=== PATIENT | female | born 1945 | race Caucasian/White ===

== ENCOUNTER 2018-04-02 06:24 | Day surgery (SDC) | payer OTHER ==
--- NOTE | 2018-03-28 16:02 | RAD REPORT ---
EXAM DESCRIPTION: Jesus Menezes (2 Views)03/28/2018 3:52 pm CLINICAL HISTORY: With COPD/preop COMPARISON: 2010 FINDINGS: Lungs are mildly to moderately hyperaerated. The lungs appear clear of acute infiltrate. The heart is normal size IMPRESSION: No acute abnormalities displayed
[2018-03-28 16:06] LABS: Absolute Monocytes 0.5 K/uL (0.1-1.3); Absolute Neutrophil 2.4 K/uL (1.8-8.0); Basophils % 2.1 % (0-1.3); Eosinophils % 3.4 % (0-4.4); Hematocrit 43.4 % (36.0-45.0); Lymphocytes % 38.5 % (15.3-44.8); MCH 31.9 pg (27.0-35.0); MPV 9.5 fL (7.6-11.3); Monocytes % 10.5 % (3.3-12.3); RBC Red Blood Cell Count 4.67 M/uL (3.86-4.86)
--- NOTE | 2018-03-29 06:51 | EKG ---
Test Date: 2018-03-28 Test Time: 16:27:09 Straight Ruling Machine Operator: ROLLY MEASUREMENT RESULTS: Intervals: Rate: 61 IA: 196 QRSD: 76 QT: 400 QTc: 402 [place]: P: 9 IA: 196 QRS: 15 T: 72 INTERPRETIVE STATEMENTS: Normal sinus rhythm Normal ECG Compared to ECG 02/28/2011 14:14:00 No significant changes Electronically Signed On 03-29-18 06:49:10 CDT by Garcia Hooks
[2018-04-02] MEDS ORDERED: NA CHLORIDE 0.9% 500 ML ONE (06:46)
[2018-04-02] MEDS ORDERED: LIDOCAINE 1% MPF 5 ML VIAL ONE (06:49)
[2018-04-02] MEDS ORDERED: LIDOCAINE 1% MPF 30 ML VIAL ONE (06:54)
[2018-04-02] MEDS ORDERED: HEPA 1000U/500MLS 2,000 UNIT/1,000 ML BAG IV ONE (06:54)
[2018-04-02 07:04] LABS: Protime INR 0.95
[2018-04-02] MEDS ORDERED: MIDAZOLAM HCL 2 MG/2 ML INJ ONE (07:34)
[2018-04-02] MEDS ORDERED: FENTANYL CITR 100 MCG/2 ML ONE ×2 (07:35→08:20)
--- NOTE | 2018-04-02 15:50 | OP ---
Surgeon: Garcia Hooks MD Academy Education Director: Lachelle Araujo. Ms. Ledesma is a 73-year-old woman. She was admitted to the animal laboratory technician as an outpatient for abdominal angiogram and a carotid angiogram. Indication was PAD and CVD, abnormal arterial Doppler, abnormal c arotid Doppler. Ms. Ledesma had a negative stress test prior to the procedure. Procedure In Detail: She was brought to the animal laboratory technician, prepped and draped in the routine sterile fash ion. Given 4 mg of Versed and 50 of fentanyl for sedation. Right common femoral artery access with a 6-Citizen Of [place] sheath was obtained successfully. StarClose was used to close the case. A JR4-Citizen [place] cat heter was advanced without any complication in the aortic arch. A carotid angiogram was performed on the right side with the Juan Alberto catheter showing normal flow with some moderate plaquing in the righ t ICA and right ECA. I had to change for a 3DRC to cannulate the left common carotid artery. There was a 90% stenosis in the left internal carotid artery. Following that we exchange over the wire to a pigtail catheter and abdominal angiogram was done showing normal renals, moderate atherosclerosis i n the distal aorta. She had 2 common iliac stents that were noted for a 90% stenosis in the ostium o f the right common iliac artery stent. Both SFAs were normal. The renals were normal. There were n o complications. Blood Loss: 5 cc. Postoperative Diagnosis: Severe peripheral arterial disease and cardiovascular disease. The plan is to have her do her left carotid endarterectomy first. She has had a stent attempt in the past and t hat could not be done. Her right common iliac artery will be fixed after her carotid surgery is done . Total Conscious Sedation: 45 minutes. A CD will be given to the patient. VALERIE/[place]O Voice ID: [id number] Report ID: [id number]
== END 2018-04-02 14:35 | disposition home or self-care (01) ==
LOC: CCL 06:24
PROC: B305ZZZ Plain Radiography of Bilateral Common Carotid Arteries (ICD-10-PCS; principal; 2018-04-02)
PROC: B40DYZZ Plain Radiography of Aorta and Bilateral Lower Extremity Arteries using Other Contrast (ICD-10-PCS; 2018-04-02)
DX: I65.23 Occlusion and stenosis of bilateral carotid arteries (principal); I70.201 Unspecified atherosclerosis of native arteries of extremities, right leg; I10 Essential (primary) hypertension; F17.210 Nicotine dependence, cigarettes, uncomplicated; E78.6 Lipoprotein deficiency; J44.9 Chronic obstructive pulmonary disease, unspecified; Z82.49 Family history of ischemic heart disease and other diseases of the circulatory system
CPT/HCPCS: 36222; 36415 ×2; 71046; 75630; 80048; 85025; 85610; 85730; 93005; J2250; J3010 ×2; Z8249

== ENCOUNTER 2020-06-01 07:57 | Day surgery (SDC) | payer OTHER ==
[2020-05-31 12:11] LABS: Absolute Lymphocytes (CBC) 1.2 K/uL (0.7-4.9); Basophils % 0.6 % (0-1.3); Hematocrit 42.5 % (36.0-45.0); Lymphocytes % 26.7 % (15.3-44.8)
[2020-05-31 12:15] LABS: Protime INR 1.03
--- NOTE | 2020-05-31 12:25 | RAD REPORT ---
EXAM DESCRIPTION: Jesus Menezes (2 Views)05/31/2020 12:17 pm CLINICAL HISTORY: Preop for angiogram. Hypertension COMPARISON: 2018 FINDINGS: The lungs appear clear of acute infiltrate. The heart is mildly enlarged IMPRESSION: No acute abnormalities displayed
[2020-05-31 12:26] LABS: Potassium 3.9 mmol/L (3.5-5.1)
[~2020-06-01 07:57] MED LIST: HEPA 1000U/500MLS 2,000 UNIT/1,000 ML BAG IV ONE
--- OUTSIDE RECORDS SUMMARY | 2020-06-01 08:05 | XMS REPORT | Clinical Summary ---
:1945 Author Organization [facility] Address [address] [place] [address] Care Team Providers Name Role Phone MD Frank Primary Care Provider Allergies Active Allergy Reactions Severity Noted Date Comments Sulfacetamide Sodium Anaphylaxis, Hives, Swelling High 05/11 Medications Medication Sig Dispensed Refills Start Date End Date Status amlodipine-benazepril Take 1 capsule by 0 Active (LOTREL) 10-20 mg per mouth daily. capsule clopidogrel (PLAVIX) Take 75 mg by 0 Active 75 mg tablet mouth daily. pravastatin Take 10 mg by 0 Acti ve (PRAVACHOL) 10 MG mouth nightly. tablet carvedilol (COREG) Take 12.5 mg by 0 Active 12.5 MG tablet mouth 2 (two) times a day with meals. ALPRAZolam (XANAX) Take 0.25 mg by 0 Active 0.25 MG tablet mouth as needed for anxiety. albuterol (PROVENTIL Inhale 2 puffs 0 Active HFA;VENTOLIN HFA) 90 every 6 (six) mcg/actuation inhaler hours as needed for wheezing. Active Problems Problem Noted Date Carotid stenosis, left 07/04/2018 Stenosis of left carotid artery 05/28/2018 Overview: Added automatically from request for juan fermin [id number] Immunizations Name Administration Dates Next Due FLUCELVAX QUAD PF 07/05/2018 Pneumococcal Conjugate 13-Valent 07/05/2018 Surgical History Surgery Date Site/Laterality Comments CAROTID ARTERY 06/11/2010 - ANGIOPLASTY 06/10/2011 ILIAC ARTERY STENT Bilateral ~[id number] CORONARY STENT PLACEMENT x3 2003 RENAL ARTERY STENT ~2003 CATARACT EXTRACTION W/ INTRAOCULAR LENS IMPLANT, BILATERAL ENDARTERECTOMY, CAROTID 07/04/2018 Neck/Left Procedur e: LEFT CAROTID ENDARTERECTOMY w/ EEG monitoring; Surgeon: Jakub Leon MD; Location: [facility]; Service: Cardiothoracic; Laterality: Left; [id number] LCEA w/ EEG I65.29 [id number] n, Linda 06/18/18 Medical devices from this surgery are in the Implants section. Medical History Medical History Date Comments PAD (peripheral artery disease) (HCC) Carotid stenosis Hypertension Hyperlipidemia Chronic kidney disease solitary function al kidney Anesthesia FIRST ENCOUNTER WITH GENERAL ANESTHESIA/NFHAP Myocardial infarction (HCC) ~2003 Hypercholesteremia On home oxygen therapy PRN CAD (coronary artery disease) S/P stents x3 (2003) Dental bridge present LOWER COPD (chronic obstructive pulmonary 2017 HOSPITALIZED FOR ONE NIGHT. disease) (HCC) Wears glasses Family History Medical History Relation Name Comments Heart disease Mother CABG, Carotid ar afsaneh disease Stroke Mother Relation Name Status Comments Mother Social History Tobacco Use Types Packs/Day Years Used Date Current Every Day Smoker Cigarettes 1 50 Sta rted: 05/28/1968 Smokeless Tobacco: Never Used Alcohol Use Drinks/Week oz/Week Comments No social Alcohol Habits Answer Date Recorded How often do you have a drink containing alcohol? Never 05/28/2018 How many drinks containing alcohol do you have on a typical Not asked day when you are drinking? How often do you have six or more drinks on one occasion? No t asked Sex Assigned at Date Recorded Not on file Last Filed Vital Signs Not on file Plan of Treatment Health Maintenance Due Date Last Done Comments COVID-19 VACCINE (#1) 1963 BREAST CANCER SCREENING 1997 COLONOSCOPY SCREENING 1997 SHINGLES VACCINES (#1) 1997 65+ PNEUMOCOCCAL VACCINE (2 of 2 - PPSV23) 07/05/201907/05 INFLUENZA VACCINE 01/10/2020 07/05/2018 Implants Implanted Type Area Sack Sewer Device Shelf Model / Identifier Expiration Serial / Lot Date Clip Ligtng Weck Hemoclip Plus W/ Tape Ti Sm Strngpnt - [id number] Medical N/A: WECK CLOSURE 03/11/2023 [id number] / Implanted: Qty: 1 on 07/04/2018 by Jakub Montoya MD at [facility] Clips for N/A SYSTEMS / Internal Use Clip Ligtng Weck Hemoclip Plus W/ Tape Ti Med - [id number] Medic al N/A: TELEFLEX 12/13/2022 [id number] / Implanted: Qty: 1 on 07/04/2018 by Jakub Montoya MD at [facility] Clips for N/A MEDICAL / Internal Use Kit Shunt Crtd Artery Rdopq Line 6in Strl [place] - [id number] Guerrero rgical N/A: COVIDIEN KENDALL 12/06/2021 [id number] / Implanted: 07/04/2018 at [facility] (Quantity not on file) Imp lants; N/A HEALTHCARE / Expanders; [id number] Extenders; Surgical Wires Patch Vasclr Perph 0.8x8cm Vascu-Guard - [id number] Vascular N/A: CARDENAS 01/09/2023 [id number] / Implanted: 07/04/2018 at [facility] (Quantity not on file) Gra ft N/A BIOSCIENCE / [id number] Results Not on fileafter 06/01/2019 Advance Directives For more information, please contact: [phone] Type Date Recorded Patient Firearms Expert Explanati on Advance Directives, Living Will and Medical Power of Yarder Boss
--- OUTSIDE RECORDS SUMMARY | 2020-06-01 08:05 | XMS REPORT | Continuity of Care Document ---
:1945 Author Organization [facility] t Address [address] [place] [address] Care Team Providers Name Role Phone Frank LOMBARDI Primary Care Physician Saroj Pak MD Attending Clinician Jud Pinto CRNA Attending Clinician Doctor Unassigned, Name Attending Clinician Unavailable Pob, Lab Main Attending Clinician Unavailable Saroj Pak MD Admitting Clinician Problems Condition Condition Condition Status Onset Resolution Last Treating Co mments Source Name Details Category Date Date Treatment Clinician Date Carotid Carotid Disease Active Jerome stenosis, stenosis, 1-24 Meth tamiko left left 00:00: st 00 Stenosis Stenosis Disease Active 2017-06 Overview: [place] of left of left 2-18 Added Methodi carotid carotid 00:00: automatic st artery artery 00 ally from request for surgery [id number] Allergies, Adverse Reactions, Alerts Allergy Allergy Status Severity Reaction(s) Onset Inactive Treating Comm ents Source Name Type Date Date Clinician Sulfacet Propensi Active Anaphylaxis, 2017-06 Jerome amide ty to Hives, 2-18 Methodi Sodium adverse Swelling 00:00: st reaction 00 s to drug Family History Family Member Diagnosis Comments Start Date Stop Date Source Natural mother Heart disease Lozoya Jain Natural mother Stroke Jerome Me thodist Social History Social Habit Start Date Stop Date Quantity Comments Source History of tobacco 1968-05-28 Current every Sandra ston Jain use 00:00:00 day smoker History SDOH Jerome Meth odist Alcohol Std Drinks History SDOH Lozoya Meth odist Alcohol Binge Sex Assigned At [facility] ethodist Cigarettes smoked 2018-07-08 2018-07-08 Darell Sotelo current (pack per 00:00:00 00:00:00 day) - Reported Cigarette 2018-07-08 2018-07-08 Darell Palma ist pack-years 00:00:00 00:00:00 Tobacco use and 2018-07-08 2018-07-08 Never used Lozoya Steve ethodist exposure 00:00:00 00:00:00 Alcohol intake 2018-07-08 2018-07-08 Current Darell Del Cid thodist 00:00:00 00:00:00 non-drinker of alcohol (finding) History SDOH 2018-05-28 2018-05-28 1 Jerome Ashley odist Alcohol Frequency 00:00:00 00:00:00 Alcohol Comment 2018-05-28 2018-05-28 social Jerome Steve ethodist 00:00:00 00:00:00 Smoking Status Start Date Stop Date Source Current every day smoker 2018-07-08 00:00:00 Sandra Palmaist Medications Ordered Filled Start Stop Current Ordering Indication Dosage Frequency Signature Comments Components Source Medication Medication Date Date Medication? Clinician (SIG) Name Name amlodipine- Yes 1{capsu QD Take 1 [place] benazepril 1-25 le} capsule by Met villagran (LOTREL) 13:54: mouth st 10-20 mg 32 daily. per capsule clopidogrel Yes 75mg QD Take 75 mg Lozoya (PLAVIX) 75 1-25 by mouth Meth tamiko mg tablet 13:54: daily. st 32 pravastatin Yes 10mg QD Take 10 mg Lozoya (PRAVACHOL) 1-25 by mouth Meth tamiko 10 MG 13:54: nightly. st tablet 32 carvedilol Yes 12.5mg Q.5D Take 12.5 Lozoya (COREG) 1-25 mg by Methodi 12.5 MG 13:54: mouth 2 st tablet 32 (two) times a day with meals. ALPRAZolam Yes .25mg Take 0.25 [place] (XANAX) 1-25 mg by Methodi 0.25 MG 13:54: mouth as st tablet 32 needed for anxiety. albuterol Yes 2{puff} Q6H Inhale 2 [place] (PROVENTIL 1-25 puffs Methodi HFA;VENTOLI 13:54: every 6 st N HFA) 90 32 (six) mcg/actuati hours as on inhaler needed for wheezing. Immunizations Ordered Immunization Filled Immunization Date Status Commen ts Source Name Name Pneumococcal 2018-07-05 Completed Jerome Conjugate 13-Valent 00:00:00 Metho dist FLUCELVAX QUAD PF 2018-07-05 Completed Jerome 00:00:00 Jain Procedures This patient has no known procedures. Plan of Care Planned Activity Planned Date Details Comments Source Future Scheduled 2020-01-10 [facility] 00:00:00 [code = INFLUENZA VACCINE] Future Scheduled 2019-07-05 65+ PNEUMOCOCCAL Jerome Jain Test 00:00:00 VACCINE (2 of 2 - PPSV23) [code = 65+ PNEUMOCOCCAL VACCINE (2 of 2 - PPSV23)] Future Scheduled 1997 BREAST CANCER [facility] thodist Test 00:00:00 SCREENING [code = BREAST CANCER SCREENING] Future Scheduled 1997 [facility] Jain Test 00:00:00 [code = COLONOSCOPY SCREENING] Future Scheduled 1997 SHINGLES VACCINES (#1) [place] Jain Test 00:00:00 [code = SHINGLES VACCINES (#1)] Future Scheduled 1963 COVID-19 [facility]ACCINE (#1) [facility] Jain Test 00:00:00 [code = COVID-19 VACCINE (#1)] Encounters Start End Encounter Admission Attending Care Care Encounter Source Date/Time Date/Time Type Type Clinicians Facility Department ID 2019-07-16 2019-07-16 [facility] [id number] 08:53:00 12:40:00 Encounter Buzz Chambers [id number] [place] [id number] Surgical [id number] [place] 071 2019-07-16 2019-07-16 Anesthesia [facility] [id number] 09:57:00 11:06:00 Malcolm Chambers [id number] [place] [id number] Surgical [id number] [place] 020 2019-07-16 2019-07-16 Orders Doctor BHANU [id number] 00:00:00 00:00:00 Only Unassigned, GHANSHYAM [id number] [place] [facility] [id number] [id number] 2019-07-14 2019-07-14 Casting Room Operator Dayanna Desir MORAUDEL [id number] 10:55:00 11:10:00 Visit Lab Main [place] [id number] [place] [id number] [facility] [id number] [address] 2019-07-09 2019-07-09 Orders Doctor BHANU [id number] 00:00:00 00:00:00 Only Unassigned, GHANSHYAM [id number] [place] [id number] Results This patient has no known results.
[2020-06-01] MEDS ORDERED: NA CHLORIDE 0.9% 500 ML ONE (08:56)
[2020-06-01] MEDS ORDERED: MIDAZOLAM HCL 2 MG/2 ML INJ ONE ×2 (10:25→10:38)
[2020-06-01] MEDS ORDERED: FENTANYL CITR 100 MCG/2 ML ONE (10:25)
[2020-06-01] MEDS ORDERED: LIDOCAINE 1% MPF 30 ML VIAL ONE (10:58)
[2020-06-01] MEDS ORDERED: HEPARIN 5000 UNIT/ML 1 ML VIAL ONE (11:03)
[2020-06-01] MEDS ORDERED: CLOPIDOGREL 75 MG TABLET ONE (11:48)
--- NOTE | 2020-06-01 12:42 | EKG ---
Test Date: 2020-05-31 Test Time: 11:41:22 Cold Storage Worker: ANTWAN MEASUREMENT RESULTS: Intervals: Rate: 66 [place]: QRSD: 80 QT: 378 QTc: 396 [place]: P: [place]: QRS: 74 T: 102 INTERPRETIVE STATEMENTS: Atrial fibrillation Nonspecific ST abnormality, probably digitalis effect Abnormal ECG Compared to ECG 03/28/2018 16:27:09 ST (T wave) deviation now present Sinus rhythm no longer present Electronically Signed On 06-01-20 12:39:46 LEG ASSEMBLER by Garcia Hooks
[2020-06-01] MEDS ORDERED: cloNIDine HCL 0.1 MG TAB PO ONE (15:00)
[2020-06-01 16:13] VITALS: BP 148/45; TEMP 98; O2SAT 96
--- NOTE | 2020-06-06 12:14 | OP ---
Date of Procedure: 06/01/2020 Surgeon: Garcia Hooks MD Well Treatment Offsider: Nima Monroy. She will go home in 2 hours and see me in the office in the next 2 weeks. The patient is on aspirin, Plavix, and statins. Procedure Performed: Abdominal angiogram with primary stent of the right common iliac artery. Indication: Ms. Ledesma is a 75-year-old woman. She is known to have severe iliac stenosis from pre vious angiography with claudication. She has diffuse disease in the SFA. Procedure In Detail: She was brought to the quality control lab technician as an outpatient on 06/01/2020. She was preppe d and draped in the routine sterile fashion. Using a 6-German sheath that was introduced in the [facility] region t common femoral artery successfully after 10 cc of Xylocaine using the Seldinger technique. An moses ography in that area revealed a 90% stenosis of the ostium of the right common iliac. A 6 x 19 Omnil ink stent was placed in the right common iliac artery ostial lesion with 0% residual. The patient to lerated the procedure well and there were no complications. She received 5000 of heparin IV during t he procedure. Blood loss was 5 mL. Total conscious sedation was 45 minutes. Final Diagnosis: Status post successful primary stent of the ostium of the right common iliac artery . The patient will remain in the hospital for 2 hours after bedrest. She had an Angio-Seal to close th e right groin. VALERIE/[place]LAND[place] Voice ID: [id number] Report ID: [id number]
== END 2020-06-01 15:50 | disposition home or self-care (01) ==
LOC: CCL 07:57
DX: I70.211 Atherosclerosis of native arteries of extremities with intermittent claudication, right leg (principal); E78.2 Mixed hyperlipidemia; I10 Essential (primary) hypertension; F17.210 Nicotine dependence, cigarettes, uncomplicated; Z82.49 Family history of ischemic heart disease and other diseases of the circulatory system; I65.21 Occlusion and stenosis of right carotid artery; Z79.82 Long term (current) use of aspirin; Z79.02 Long term (current) use of antithrombotics/antiplatelets
CPT/HCPCS: 93005; 85025; 80048; 36415; 85610; 85347 ×2; 85730; 71046; 36200; 37221; C1893; C1760; C1725; J1644 ×2; J2250 ×2; J3010; J7040

== ENCOUNTER 2022-11-05 12:55 | Inpatient (IN) | payer OTHER ==
--- OUTSIDE RECORDS SUMMARY | 2022-11-05 12:58 | XMS REPORT | Continuity of Care Document ---
:1945 [facility] t Address [address] [facility] [address] [place] [address] Care Team Providers Name Role Phone Brannon Marie MD Primary Care Physician Maricel_A_AH Attending Clinician Unavailable Buzz Pak MD Attending Clinician [phone] Malcolm Pinto CRNA Attending Clinician Doctor Unassigned, [place] Attending Clinician Unavailable Pob, [facility] Main Attending Clinician Unavailable Ken Attending Clinician Unavailable Nadia-Adrianna_A_AH Admitting Clinician Unavailable Buzz Pak MD Admitting Clinician [phone] Ken Admitting Clinician Unavailable Payers Payer Name Policy Type Policy Number Effective Date Expiration Date Alexa yap [facility] - [id number] 2019 [employer] (MEDICARE 00:00:00 REPLACEMENT/ADVANTA GE - HMO) [employer] [id number] 2019 [employer] 00:00:00 (MEDICARE REPLACEMENT HMO) Problems Condition Condition Condition Status Onset Resolution Last Treating Co mments Source Name Details Category Date Date Treatment Clinician Date Carotid Carotid Disease Active Methodi stenosis, stenosis, 1-24 st left left 00:00: Hospita 00 l Stenosis Stenosis Disease Active 2017-06 Overview: thodi of left of left 2-[address] carotid carotid 00:00: g of this Hospi ta artery artery 00 note l might be different from the original. Added automatic ally from request for surgery [id number] No known No known Disease Unive rs active active ity of problems problems [facility] Allergies, Adverse Reactions, Alerts Allergy Allergy Status Severity Reaction(s) Onset Inactive Treating Comm ents Source Name Type Date Date Clinician Sulfa Propensi Active Hives Univers (Sulfona ty to 07-14 ity of mide adverse 00:00: [place] Antibiot reaction 00 Medica l ics) s Branch Sulfacet Propensi Active Swelling 2017-06 Meth tamiko amide ty to 07-29 st Sodium adverse 00:00: Hospita reaction 00 l s to drug Family History Family Member Diagnosis Comments Start Date Stop Date Source Natural mother Heart disease [facility] Natural mother Stroke [facility] Social History Social Habit Start Date Stop Date Quantity Comments Source History of tobacco Cigarette Smoker [facility] Gender identity [facility] Sexual orientation [facility] History [facility] Alcohol Std Drinks Hospit al History [facility] Alcohol Binge Hospital History of Social 2019-01-26 2019-01-[address] function 00:00:00 00:00:00 Hospital Alcohol intake 2018-07-08 2018-07-08 Current [facility] 00:00:00 00:00:00 non-drinker of Hospital alcohol (finding) History [facility] 2018-07-04 2018-07-04 1 [place] Alcohol Frequency 00:00:00 00:00:00 Hospita l Alcohol Comment 2018-05-28 2018-05-28 social [facility] 00:00:00 00:00:00 Hospital Cigarettes smoked 2018-05-28 2018-05-28 [facility] current (pack per 00:00:00 00:00:00 Hospita l day) - Reported Cigarette 2018-05-28 2018-05-28 [facility] pack-years 00:00:00 00:00:00 Hospital Tobacco use and 2018-05-28 2018-05-28 Smokeless [facility] exposure 00:00:00 00:00:00 tobacco non-user Hospital Sex Assigned At [birth year] [facility] 00:00:00 00:00:00 Hospital Smoking Status Start Date Stop Date Source Unknown if ever smoked Universit y [facility] Current every day smoker 2019-07-16 00:00:00 [facility] Medications Ordered Filled Start Stop Current Ordering Indication Dosage Frequency Signature Comments Components Source Medication Medication Date Date Medication? Clinician (SIG) Name Name carvediloL 2020-0 Yes 12.5mg Take 12.5 Univers (COREG) 2-05 mg by ity of 12.5 mg 19:50: mouth 2 [place] tablet 10 (two) Medical times Branch daily with meals. clopidogreL 2020-0 Yes 75mg Take 75 mg Univers (PLAVIX) 75 2-05 by mouth ity of mg tablet 19:50: daily. [address] amLODIPine- 2020-0 Yes 1{capsu Take 1 U nivers benazepriL 2-05 le} capsule by ity of 5-20 mg per 19:50: mouth [place] capsule 10 daily. Medical Branch ALPRAZolam 2020-0 Yes .25mg Take 0.25 U nivers (XANAX) 2-05 mg by ity of 0.25 mg 19:50: mouth at [place] tablet 10 bedtime. Medical Branch traMADol 50 2020-0 Yes 50mg Take 50 mg Univers mg tablet 2-05 by mouth ity of 19:50: every 8 [place] 10 (eight) Medical hours as Branch needed. acetaminoph 2020-0 Yes 1{tbl} Take 1 Un bj en-codeine 2-05 tablet by ity of (TYLENOL-CO 19:50: mouth [place] DEINE #3) 10 every 4 Medical 300-30 mg (four) Branch tablet hours as needed. carvediloL 2020-0 Yes 12.5mg Take 12.5 Univers (COREG) 2-05 mg by ity of 12.5 mg 19:50: mouth 2 [place] tablet 10 (two) Medical times [place] daily with meals. clopidogreL 2020-0 Yes 75mg Take 75 mg Univers (PLAVIX) 75 2-05 by mouth ity of mg tablet 19:50: daily. [address] Branch amLODIPine- 2020-0 Yes 1{capsu Take 1 U nivers benazepriL 2-05 le} capsule by ity of 5-20 mg per 19:50: mouth [place] capsule 10 daily. Medical Branch ALPRAZolam 2020-0 Yes .25mg Take 0.25 U nivers (XANAX) 2-05 mg by ity of 0.25 mg 19:50: mouth at [place] tablet 10 bedtime. Medical Branch traMADol 50 2020-0 Yes 50mg Take 50 mg Univers mg tablet 2-05 by mouth ity of 19:50: every 8 [place] 10 (eight) Medical hours as Branch needed. acetaminoph 2020-0 Yes 1{tbl} Take 1 Un bj en-codeine 2-05 tablet by ity of (TYLENOL-CO 19:50: mouth [place] DEINE #3) 10 every 4 Medical 300-30 mg (four) Branch tablet hours as needed. carvediloL 2020-0 Yes 12.5mg Take 12.5 Univers (COREG) 2-05 mg by ity of 12.5 mg 19:50: mouth 2 [place] tablet 10 (two) Medical times Branch daily with meals. clopidogreL 2020-0 Yes 75mg Take 75 mg Univers (PLAVIX) 75 2-05 by mouth ity of mg tablet 19:50: daily. [place] [address] Medical Branch amLODIPine- 2020-0 Yes 1{capsu Take 1 U nivers benazepriL 2-05 le} capsule by ity of 5-20 mg per 19:50: mouth [place] capsule 10 daily. Medical Branch ALPRAZolam 2020-0 Yes .25mg Take 0.25 U nivers (XANAX) 2-05 mg by ity of 0.25 mg 19:50: mouth at [place] tablet 10 bedtime. Medical Branch traMADol 50 2020-0 Yes 50mg Take 50 mg Univers mg tablet 2-05 by mouth ity of 19:50: every 8 [place] 10 (eight) Medical hours as Branch needed. acetaminoph 2020-0 Yes 1{tbl} Take 1 Un bj en-codeine 2-05 tablet by ity of (TYLENOL-CO 19:50: mouth [place] DEINE #3) 10 every 4 Medical 300-30 mg (four) Branch tablet hours as needed. dexamethaso 2020-0 2020- No ONCE INTRA Univers ne sod phos 2-05 07-21 PROCEDURE, i ty of PF 17:49: 20:24 Starting [place] injection 00 :42 07/16/19 Medi dave at 1149, Branch Until 07/21/19 at 1424, Routine, Intra-op ropivacaine 2020-0 2020- No ONCE INTRA Univers 0.5 % 2-05 07-21 PROCEDURE, ity of (NAROPIN 17:49: 20:24 Starting [place] (PF)) 00 :21 07/16/19 Medical injection at 1149, Branch Until 07/21/19 at 1424, Routine, Intra-op HYDROmorpho 2020-0 Yes .5mg 0.5 mg, Uni vers ne 2-05 Slow IV ity of (DILAUDID) 17:22: Push, [place] injection 00 Q15MIN Medical 0.5 mg PRN, 4 Branch doses, Starting 07/16/19 at 1122, Until Discontinu ed, Routine, Pain (scale 7-10), 0.5mg IV every 15min PRN for severe Pain up to a total of 2mg IV, PACU
Us e approved by (Faculty): ADC PROVIDER FENTanyl PF 2019-0 Yes 25ug 25 mcg, Uni vers (SUBLIMAZE 2-05 Slow IV ity of (PF)) 17:22: Push, [place] injection 00 Q5MIN PRN, Medi dave 25 mcg 4 doses, Branch Starting 07/16/19 at 1122, Until Discontinu ed, Routine, Pain (scale 4-6), PACU ondansetron 2019-0 Yes 4mg 4 mg, Slow Univers (ZOFRAN 2-05 IV Push, ity of (PF)) 17:22: PRN, 1 [place] injection 4 00 dose, Medical mg Starting Branch 07/16/19 at 1122, Until Discontinu ed, Routine, Nausea and Vomiting (N/V), PACU acetaminoph 2019-0 2020- No IV Unive rs en ADULT 2-05 02-05 Infusion, ity o f (OFIRMEV) 16:09: 17:06 Administer [place] injection 00 :48 over 15 Medical Minutes, Branch ONCE INTRA PROCEDURE, Starting 07/16/19 at 1009, Until 07/16/19 at 1106, Routine, Intra-op FENTanyl PF 2020-0 2020- No Intravenou Univers (SUBLIMAZE 2-05 02-05 s, ONCE ity o f (PF)) 16:03: 17:06 INTRA [place] injection 00 :48 PROCEDURE, Medi dave Starting Branch 07/16/19 at 1003, Until 07/16/19 at 1106, Routine, Intra-op propofol IV 2020-0 2020- No Intravenou Univers infusion 2-05 02-05 s, ONCE ity of 16:03: 17:06 INTRA [place] 00 :48 PROCEDURE, Medical Starting Branch 07/16/19 at 1003, Until 07/16/19 at 1106, Routine, Intra-op lidocaine 2019-0 2020- No ONCE INTRA U nivers 1% 07-16-05 PROCEDURE, ity of (XYLOCAINE) 16:03: 17:06 Starting [place] 100 mg/10 00 :48 07/16/19 Medi dave mL (1 %) at 1003, Branch injection Until 07/16/19 at 1106, Routine, Intra-op midazolam 2019-0 2020- No IV Push, Uni vers (VERSED) 2-05 ONCE INTRA ity of injection 15:54: 17:06 PROCEDURE, [place] 00 :48 Starting Medical 07/16/19 Branch at 0954, Until 07/16/19 at 1106, Routine, Intra-op lactated 2020-0 2020- No IV Univers ringers IV 2-05 Infusion, ity of infusion 15:11: 17:06 CONTINUOUS [place] 00 :48 PRN, Medical Starting Branch 07/16/19 at 0911, Until 07/16/19 at 1106, Routine, Intra-op lactated 2020-0 2020- No 1000mL at 20 Unive rs ringers IV 2- 02-05 mL/hr, ity of infusion 15:00: 15:11 1,000 mL, Shekhar as 1,000 mL 00 :00 IV Medical Infusion, Branch ONCE, 1 dose, 07/16/19 at 0900, Routine, DSU Pre-op ALPRAZolam 2020-0 Yes .25mg Take 0.25 U nivers (XANAX) 2-03 mg by ity of 0.25 mg 15:17: mouth at [place] tablet 23 bedtime. Medical Branch traMADol 50 2020-0 Yes 50mg Take 50 mg Univers mg tablet 2-03 by mouth ity of 15:17: every 8 [place] 23 (eight) Medical hours as Branch needed. acetaminoph 2020-0 Yes 1{tbl} Take 1 Un bj en-codeine 2-03 tablet by ity of (TYLENOL-CO 15:17: mouth [place] DEINE #3) 23 every 4 Medical 300-30 mg (four) Branch tablet hours as needed. carvediloL 2020-0 Yes 12.5mg Take 12.5 Univers (COREG) 2-03 mg by ity of 12.5 mg 15:17: mouth 2 [place] tablet 22 (two) Medical times Branch daily with meals. clopidogreL 2020-0 Yes 75mg Take 75 mg Univers (PLAVIX) 75 2-03 by mouth ity of mg tablet 15:17: daily. [place] 22 Medical Branch amLODIPine- 2019-0 Yes 1{capsu Take 1 U nivers benazepriL 2-03 le} capsule by ity of 5-20 mg per 15:17: mouth [place] capsule 22 daily. Medical Branch amlodipine- 0 Yes 1{capsu QD Take 1 M ethodi benazepril 1-25 le} capsule by st (LOTREL) 13:54: mouth Hospita 10-20 mg 32 daily. l per capsule clopidogrel 2018-0 Yes 75mg QD Take 75 mg Methodi (PLAVIX) 75 1-[address] mg tablet 13:54: daily. Hospit a 32 l pravastatin 0 Yes 10mg QD Take 10 mg Methodi (PRAVACHOL) 1-[address] 10 MG 13:54: nightly. Hospita tablet 32 l carvedilol 2018-0 Yes 12.5mg Q.5D Take 12.5 Methodi (COREG) 1-[address] 12.5 MG 13:54: mouth 2 Hospita tablet 32 (two) l times a day with meals. amlodipine- 0 Yes 1{capsu QD Take 1 M ethodi benazepril 1-25 le} capsule by st (LOTREL) 13:54: mouth Hospita 10-20 mg 32 daily. l per capsule clopidogrel 2018-0 Yes 75mg QD Take 75 mg Methodi (PLAVIX) 75 1-[address] mg tablet 13:54: daily. Hospit a 32 l pravastatin 2019-0 Yes 10mg QD Take 10 mg Methodi (PRAVACHOL) 1-[address] 10 MG 13:54: nightly. Hospita tablet 32 l carvedilol 2019-0 Yes 12.5mg Q.5D Take 12.5 Methodi (COREG) 1-[address] 12.5 MG 13:54: mouth 2 Hospita tablet 32 (two) l times a day with meals. ALPRAZolam 2019-0 Yes .25mg Take 0.25 M ethodi (XANAX) 1-[address] 0.25 MG 13:54: mouth as Hospit a tablet 32 needed for l anxiety. albuterol Yes 2{puff} Q6H Inhale 2 M ethodi (PROVENTIL 1-[address] HFA;VENTOLI 13:54: every 6 Hos tanja N HFA) 90 32 (six) l mcg/actuati hours as on inhaler needed for wheezing. ALPRAZolam 2019 Yes .25mg Take 0.25 M ethodi (XANAX) 1-[address] 0.25 MG 13:54: mouth as Hospit a tablet 32 needed for l anxiety. albuterol Yes 2{puff} Q6H Inhale 2 M ethodi (PROVENTIL 1-[address] HFA;VENTOLI 13:54: every 6 Hos tanja N HFA) 90 32 (six) l mcg/actuati hours as on inhaler needed for wheezing. No known No Univers medications ity [facility] Immunizations Ordered Immunization Filled Immunization Date Status Commen ts Source Name Name Pneumococcal 2018-07-05 Completed [facility] Conjugate 13-[facility]ent 00:00:00 Hospi josh FLUCELVAX QUAD PF 2018-07-[address] 00:00:00 Hospital Pneumococcal 2018-07-05 Completed [place] Conjugate 13-Valent 00:00:00 Hospi josh FLUCELVAX QUAD PF 2018-07-[address] 00:00:00 Hospital Vital Signs Vital Name Observation Time Observation Value Comments Source Systolic blood 2019-07-16 18:07:00 143 mm[Hg] Univer sity of pressure [facility] Diastolic blood 2019-07-16 18:07:00 71 mm[Hg] [facility] Heart rate 2019-07-16 18:07:00 81 /min [facility] Body temperature 2019-07-16 18:07:00 36.83 [facility] Respiratory rate 2019-07-16 18:07:00 18 /min [facility] Oxygen saturation in 2019-07-16 18:07:00 95 /min [facility] Arterial blood by [facility] Pulse oximetry Branch Body height 2019-07-14 15:00:00 165.1 cm Universi ty [facility] [place] Body weight 2019-07-14 15:00:00 74.844 kg Universi ty [facility] BMI 2019-07-14 15:00:00 27.46 kg/m2 Universi ty [facility] Systolic blood 2019-07-16 18:07:00 143 mm[Hg] Univer sity of pressure [facility] Diastolic blood 2019-07-16 18:07:00 71 mm[Hg] Unive rsity of [facility] Heart rate 2019-07-16 18:07:00 81 /min Universi ty [facility] Body temperature 2019-07-16 18:07:00 36.83 Marni [facility] Respiratory rate 2019-07-16 18:07:00 18 /min Univ [facility] Oxygen saturation in 2019-07-16 18:07:00 95 /min [facility] Arterial blood by [facility] Pulse oximetry Branch Body height 2019-07-14 15:00:00 165.1 cm Universi ty [facility] Body weight 2019-07-14 15:00:00 74.844 kg Universi ty [facility] BMI 2019-07-14 15:00:00 27.46 [facility] Procedure Date / Time Performing Clinician Source Performed NERVE BLOCK 2019-07-21 20:25:20 Demetrius Yu [facility] FL TIME OR 2019-07-16 16:53:29 Buzz Pak [facility] (NON-REPORTABLE) [facility] INTUBATION 2019-07-16 16:07:50 Demetrius Yu [facility] DAY SURGERY - ADC 2019-07-16 06:01:00 Doctor Unassigned, [facility] Isabella [facility] INSURANCE CORRESPONDENCE 2019-07-09 06:01:00 Doctor [place], [facility] Isabella [facility] Plan of Care Planned Activity Planned Date Details Comments Source Future Scheduled 2022-09-14 COVID-19 VACCINE (#1) [facility] Test 16:45:37 [code = COVID-19 VACCINE (#1)] Future Scheduled 2022-09-14 BREAST CANCER [facility] Test 16:45:37 SCREENING [code = BREAST CANCER SCREENING] Future Scheduled 2022-09-14 COLONOSCOPY SCREENING [facility] Test 16:45:37 [code = COLONOSCOPY SCREENING] Future Scheduled 2022-09-14 SHINGLES VACCINES (1 Met [facility] Test 16:45:37 of 2) [code = SHINGLES VACCINES (1 of 2)] Future Scheduled 2022-09-14 65+ PNEUMOCOCCAL Methodi [facility] Test 16:45:37 VACCINE (2 - PPSV23 if available, else PCV20) [code = 65+ PNEUMOCOCCAL VACCINE (2 - PPSV23 if available, else PCV20)] Future Scheduled 2022-09-14 INFLUENZA VACCINE Method [email or web address] Test 16:45:37 [code = INFLUENZA VACCINE] Future Scheduled 2022-09-14 COVID-19 VACCINE (#1) [facility] Test 16:45:37 [code = COVID-19 VACCINE (#1)] Future Scheduled 2022-09-14 BREAST CANCER [facility] Test 16:45:37 SCREENING [code = BREAST CANCER SCREENING] Future Scheduled 2022-09-14 COLONOSCOPY SCREENING [facility] Test 16:45:37 [code = COLONOSCOPY SCREENING] Future Scheduled 2022-09-14 SHINGLES VACCINES (1 Met [facility] Test 16:45:37 of 2) [code = SHINGLES VACCINES (1 of 2)] Future Scheduled 2022-09-14 65+ PNEUMOCOCCAL Methodi [facility] Test 16:45:37 VACCINE (2 - PPSV23 if available, else PCV20) [code = 65+ PNEUMOCOCCAL VACCINE (2 - PPSV23 if available, else PCV20)] Future Scheduled 2022-09-14 INFLUENZA VACCINE Method [email or web address] Test 16:45:37 [code = INFLUENZA VACCINE] Encounters Start End Encounter Admission Attending Care Care Encounter Source Date/Time Date/Time Type Type Clinicians Facility Department ID 2019-07-30 2019-07-30 Outpatient [facility] [address] [facility] 07:12:00 07:12:00 _A_AH [id number] Family Practic e 2019-07-30 2019-07-30 Outpatient [facility] [address] [facility] 07:12:00 07:12:00 _A_AH [id number] Family Practic e 2019-07-16 2019-07-16 [facility] [id number] 08:53:00 12:40:00 Encounter Buzz [place] [id number] [place] [id number] Surgical [id number] [place] 071 2019-07-16 2019-07-16 [facility] [id number] [facility] 08:53:00 12:40:00 Encounter Buzz [place] [id number] ity of [place] [id number] [place] [id number] [facility] 071 Branch 2019-07-16 2019-07-[address] [facility] [id number] 09:57:00 11:06:00 Malcolm Jud [place] [id number] [place] [id number] Surgical [id number] [place] 020 2019-07-16 2019-07-[address] [facility] [id number] Univers 09:57:00 11:06:00 Malcolm Jud [place] [id number] i ty of [place] [id number] [place] [id number] [facility] 020 Branch 2019-07-16 2019-07-16 Orders Doctor DRUMMOND [id number] 00:00:00 00:00:00 Only Unassigned, GHANSHYAM [id number] [place] [facility]OSPITAL [id number] [id number] 009 2019-07-16 2019-07-16 Orders Doctor DRUMMOND [id number] Univers 00:00:00 00:00:00 Only Unassigned, GHANSHYAM [id number] ity of [place] HOSPITAL [id number] Shekhar as [phone] [address] 2019-07-14 2019-07-14 Elderly Companion Dayanna Desir [facility] [id number] 10:55:00 11:10:00 Visit Lab Main [place] [id number] [place] [id number] Professio [phone] [address] 2019-07-14 2019-07-14 Elderly Companion Dayanna Desir Lab Main [facility] 1.2.[id number] [facility] 10:55:00 11:10:00 Visit Buzz Pak 350.1. 13.10 ity of [place] [id number] Héctor s Professio [id number] Pa dical [address] 2019-07-09 2019-07-09 Orders Doctor BHANU [id number] 00:00:00 00:00:00 Only Unassigned, GHANSHYAM [id number] [place] [facility] [id number] [id number] [facility] 2019-07-09 2019-07-09 Orders Doctor BHANU [id number] Univers 00:00:00 00:00:00 Only Unassigned, GHANSHYAM [id number] [facility] [id number] Shekhar as [id number] [address] 2019-07-02 2019-07-02 [facility] [id number] [place] 05:10:00 05:10:00 0122 Medical Group Results Test Test Test Results Result Source Description Time Comments Comments Nerve Block 2019-07- Demetrius Yu CRNA ? [place] [id number] ? 07/21/2019 ?2:29 PM Héctor link Medical 20:25:20 Nerve Block Procedure: Br anch Supraclavicular Nerve Block Laterality: LeftSurgical Anesthesia: no Start Time: 07/21/2019 11:47 AMEnd Time: 07/21/2019 11:54 AMPost Op Pain Management: Post op pain management requested by Surgeon pe surgical Pre Anesthesia consult.Resident/EDUCATION TRAINER: Demetrius Yu CRNAPerformed by: resident/CRNAPreanestheti c timeout completed prior to procedure: patient identified,IV checked, site marked, risks and benefits discussed, surgical consent, monitors and equipment checked, pre-op evaluation, timeout performedInformed consent obtained patient wishes to proceed: yesPatient position: supine.Sterile Prep/Drape: YesMonitoring: continuous pulse ox, blood pressure and ECGInjection Technique: single-shotNeedle Type: StimuplexNerve Block Needle Gauge: 20 G.Needle Length: 4.0Number of Attempts: 1Needle Insertion Depth: 1.5Technique: Ultrasound guided, Negative aspiration and Intermittent aspiration during injectionSensory Effect: AdequateEvents: Patient tolerated procedure well, Negative Aspiration, No paresthesia on incremental injection, No symptoms of intraneural or IV injection and Local anesthetic solution visualized around nerve Medications Given: Regional:Bupiv 0.5% 20 mLRopiv 0.5% 20 mLDexamethasone 10mg/ml 0.5 mL Sedation:Midazolam 2 mg Additional Notes:Late Entry made, verified with Seda Alba RN who also assisted with procedure Left Supraclavicular Nerve Block Assessment completed, anesthetic plan and risks discussed. Consent was obtained. Timeout performed at bedside. Right neck prepped with chloraprep; relevant structures visualized under continuous ultrasound. Skin localized with 3ml 1% lidocaine; 20g 4" stimuplex needle advanced under continous ultrasound guidance. Fascial clicks appreciated. Small test injection using 1ml of sterile pfNS confirmed needle position. 20ml 0.5% Naropin and Decadron 5mg mixture injected incrementally with negative repeated aspiration every 5ml. Needle tip visualized throughout procedure, negative parasthesias, heme or CSF noted; pt tolerated well, nerve block onset slow and adequate. ?Aseptic technique maintained throughout. Patient tolerated well. ? __ FL TIME OR 2019-07- These images do not Unive rsity of (NON-REPORTABLE [address] [facility] ) 16:55:26 diagnostic report. Branch Intubation 2019-07- Demetrius Yu CRNA ? [facility] ? 07/16/2019 10:08 [facility] dical 16:07:50 AMIntubationDate/Time: Br anch 07/16/2019 10:04 AMUrgency: elective General Information and Staff Patient location during procedure: ORResident/EDUCATION TRAINER: Yu, Demetrius R, CRNAPerformed: resident/EDUCATION TRAINER Indications and Patient ConditionIndications for airway management: anesthesiaSpontaneous ventilation: presentSedation level: deepPreoxygenated: yesPatient position: sniffingMILS maintained throughoutMask difficulty assessment: 1 - vent by mask Final Airway DetailsFinal airway type: supraglottic airway Successful airway: uniqueSize 4 Number of attempts at approach: 1Ventilation between attempts: BVMNumber of other approaches attempted: 0 Additional CommentsPt assessed, consented and Time Out performed. ?Patient supine, head midline and neutral. Nurse/EDUCATION TRAINER at side of bed assisting. ?Pre-oxygenated, induced and LMA 4 placed atraumatically. ?Placement verified upon auscultation bilaterally with good chest rise. ?Positive ETCO2. LMA secured, soft airway placed, eyes taped for protection. VSS, tolerated well.
--- NOTE | 2022-11-05 13:37 | RAD REPORT ---
EXAM DESCRIPTION: RAD - Chest Single View - 11/05/2022 1:28 pm CLINICAL HISTORY: COPD;Cough;Congestion COMPARISON: Chest Pa And Lat (2 Views) dated 05/31/2020; Chest Pa And Lat (2 Views) dated 03/28/2018 ; CHEST PA AND LAT 2 VIEW dated 02/28/2011; CHEST PA AND LAT 2 VIEW dated 04/07/2010 FINDINGS: Lines: None. Lungs: No evidence of edema or pneumonia. Pleural: No significant pleural effusions or pneumothorax. Cardiac: The heart size is within normal limits. Mediastinum: Within normal limits. Bones: No acute fractures. Other: None IMPRESSION: No acute cardiopulmonary disease.
[2022-11-05 13:58] LABS: Absolute Lymphocytes (CBC) 0.5 K/uL (0.7-4.9); Hematocrit 40.9 % (36.0-45.0); Lymphocytes % 9.7 % (15.3-44.8); MCV 91.4 fL (80-100); MPV 8.9 fL (7.6-11.3); RBC Red Blood Cell Count 4.48 M/uL (3.86-4.86)
[2022-11-05 14:06] LABS: SARS-CoV-2 Antigen Rapid Res Negative (Negative)
[2022-11-05 14:30] LABS: Protime INR 0.97
[2022-11-05 14:43] LABS: Albumin 3.4 g/dL (3.4-5.0); Bilirubin Direct 0.2 mg/dL (0-0.2); Bilirubin Indirect, Calculated 0.4 mg/dL (0.2-0.8); Bilirubin Total 0.6 mg/dL (0.2-1.0); Magnesium 2.5 mg/dL (1.6-2.4); Potassium 4.5 mEq/L (3.5-5.1); Protein, Total 6.7 g/dL (6.4-8.2); Troponin High Sensitivity 17.9 pg/mL (<58.9)
--- NOTE | 2022-11-05 15:34 | EDPHYS ---
Physician Documentation [facility] Name: Trang Ledesma Age: 77 yrs Sex: Female : 1945 Arrival Date: 11/05/2022 Time: 12:55 Bed 14 Private MD: ED Physician Jaziel Looney HPI: 11/05 15:24 This 77 yrs old Female presents to ER via EMS with complaints of Shortness Of dora Breath. 15:24 The patient has shortness of breath at rest, with light activity. Onset: The dora symptoms/episode began/occurred 2 day(s) ago. Duration: The symptoms are continuous, and are steadily getting worse. The patient's shortness of breath is aggravated by coughing, light activity, prone position, supine position, talking, walking. Associated signs and symptoms: Pertinent positives: non-productive cough, dizziness, fever. Severity of symptoms: At their worst the symptoms were moderate in the emergency department the symptoms are unchanged. Historical: - Allergies: 13:08 Sulfa (Sulfonamide Antibiotics); db 13:08 PENICILLINS; db - PMHx: 13:08 Atrial fibrillation; Chronic obstructive lung disease; db - Immunization history:: Client reports receiving the 2nd dose of the Covid vaccine. - Social history:: Smoking status: Patient reports the use of cigarette tobacco products, smokes one-half pack cigarettes per day. ROS: 15:25 Constitutional: Negative for fever, chills, and weight loss, Eyes: Negative for injury, dora pain, redness, and discharge, ENT: Negative for injury, pain, and discharge, Neck: Negative for injury, pain, and swelling, Abdomen/GI: Negative for abdominal pain, nausea, vomiting, diarrhea, and constipation, Back: Negative for injury and pain, : Negative for injury, bleeding, discharge, and swelling, MS/Extremity: Negative for injury and deformity, Skin: Negative for injury, rash, and discoloration, Neuro: Negative for headache, weakness, numbness, tingling, and seizure, Psych: Negative for depression, anxiety, suicide ideation, homicidal ideation, and hallucinations, Allergy/Immunology: Negative for hives, rash, and allergies, Endocrine: Negative for neck swelling, polydipsia, polyuria, polyphagia, and marked weight changes, Hematologic/Lymphatic: Negative for swollen nodes, abnormal bleeding, and unusual bruising. 15:25 Cardiovascular: Positive for orthopnea, palpitations, paroxysmal nocturnal dyspnea. 15:25 Respiratory: Positive for cough, "sounds productive", orthopnea, shortness of breath, at rest. wheezing, inspiratory, expiratory, of the left posterior upper lobe, right posterior upper lobe, left posterior lower lobe, right posterior middle lobe and right posterior lower lobe. 15:25 MS/extremity: Negative for acute changes. Exam: 15:26 Constitutional: This is a well developed, well nourished patient who is awake, alert, dora and in no acute distress. Head/Face: Normocephalic, atraumatic. Eyes: Pupils equal round and reactive to light, extra-ocular motions intact. Lids and lashes normal. Conjunctiva and sclera are non-icteric and not injected. Cornea within normal limits. Periorbital areas with no swelling, redness, or edema. ENT: Nares patent. No nasal discharge, no septal abnormalities noted. Tympanic membranes are normal and external auditory canals are clear. Oropharynx with no redness, swelling, or masses, exudates, or evidence of obstruction, uvula midline. Mucous membranes moist. Neck: Trachea midline, no thyromegaly or masses palpated, and no cervical lymphadenopathy. Supple, full range of motion without nuchal rigidity, or vertebral point tenderness. No Meningismus. Chest/axilla: Normal chest wall appearance and motion. Nontender with no deformity. No lesions are appreciated. Cardiovascular: Regular rate and rhythm with a normal S1 and S2. No gallops, murmurs, or rubs. Normal PMI, no JVD. No pulse deficits. Abdomen/GI: Soft, non-tender, with normal bowel sounds. No distension or tympany. No guarding or rebound. No evidence of tenderness throughout. Back: No spinal tenderness. No costovertebral tenderness. Full range of motion. Female : Normal external genitalia. Skin: Warm, dry with normal turgor. Normal color with no rashes, no lesions, and no evidence of cellulitis. MS/ Extremity: Pulses equal, no cyanosis. Neurovascular intact. Full, normal range of motion. Neuro: Awake and alert, GCS 15, oriented to person, place, time, and situation. Cranial nerves II-XII grossly intact. Motor strength 5/5 in all extremities. Sensory grossly intact. Cerebellar exam normal. Normal gait. Psych: Awake, alert, with orientation to person, place and time. Behavior, mood, and affect are within normal limits. 15:26 ECG was reviewed by the Attending Physician. 15:26 Neuro: Exam negative for acute changes, focal neuro deficits, motor deficits, sensory deficits, cerebellar deficits. Vital Signs: 12:56 BP 151 / 77; Pulse 72; Resp 20; Temp 98.7; Pulse Ox 90% on 4 lpm NC; Weight 74.84 kg; db Height 5 ft. 5 in. ; 14:00 BP 164 / 67; Pulse 79; Resp 18; Pulse Ox 92% on 4 lpm NC; db 15:30 BP 151 / 68; Pulse 77; Resp 20; Pulse Ox 91% on 4 lpm NC; db 16:30 BP 181 / 93; Pulse 82; Resp 20 S; Pulse Ox 100% on BiPAP; db 17:30 BP 154 / 71; Pulse 80; Resp 18; Pulse Ox 100% on BiPAP; db 18:30 BP 162 / 114; Pulse 83; Resp 18; Pulse Ox 100% on BiPAP; db 19:30 BP 169 / 77; Pulse 75; Resp 20; Pulse Ox 100% on BiPAP; jb4 12:56 Body Mass Index 27.46 (74.84 kg, 165.1 cm) db MDM: 13:05 Patient medically screened. doar 15:28 Differential diagnosis: CHF exacerbation, Chronic Obstructive Pulmonary Disease dora obstructed airway, tracheal injury, bronchitis, flu, URI, pneumonia, pulmonary edema, reactive airway disease, Sepsis Unstable Angina. Antibiotic administration: Levaquin given. Differential Diagnosis: Obstructed Airway Bronchitis Influenza Upper Respiratory Infection Sinusitis Pharyngitis Asthma Exacerbation Viral Syndrome Pneumonia. Immunization status: Pneumococcal vaccine: within last 5 years. Influenza vaccine: within last 5 years. Data reviewed: vital signs, nurses notes, EMS record, lab test result(s), EKG, radiologic studies, plain films. Consideration of Admission/Observation Patient was admitted/placed on observation. Escalation of care including admission/observation considered. Independent interpretation of the following test(s) in the Emergency Department EKG: See my EKG interpretation above. Care significantly affected by the following chronic conditions: Hypertension, Chronic Obstructive Pulmonary Disease, Obesity, COPD. Counseling: I had a detailed discussion with the patient and/or guardian regarding: the historical points, exam findings, and any diagnostic results supporting the discharge/admit diagnosis, lab results, radiology results, the need for further work-up and treatment in the hospital. 11/05 13:07 Order name: Basic Metabolic Panel; Complete Time: 15:[address] [facility] 11/05 13:07 Order name: CBC with Diff; Complete Time: 14:[address] [facility] 11/05 13:07 Order name: LFT's; Complete Time: 15:[address] [facility] 11/05 13:07 Order name: Magnesium; Complete Time: 15:[address] [facility] 11/05 13:07 Order name: NT PRO-BNP; Complete Time: 15:[address] [facility] 11/05 13:07 Order name: PT-INR; Complete Time: 14:[address] [facility] 11/05 13:07 Order name: Troponin HS; Complete Time: 15: [facility] 11/05 13:07 Order name: Blood Culture Adult (2) [facility] 11/05 13:07 Order name: Lactate w/ 2H reflex if indic.; Complete Time: 14:[address] [facility] 11/05 13:07 Order name: Flu; Complete Time: 14:[address] [facility] 11/05 13:07 Order name: SARS RAPID; Complete Time: 14:[address] [facility] 11/05 15:20 Order name: ABG [facility] 11/05 17:33 Order name: CBC with Automated Diff [facility] 11/05 17:33 Order name: CBC with Automated Diff [facility] 11/05 17:33 Order name: Comprehensive Metabolic Panel [facility] 11/05 17:33 Order name: Comprehensive Metabolic Panel [facility] 11/05 17:33 Order name: Lipid Profile [facility] 11/05 17:33 Order name: Lipid Profile [facility] 11/05 17:33 Order name: Protime (+INR) [facility] 11/05 17:33 Order name: Protime (+INR) [facility] 11/05 17:33 Order name: PTT, Activated Partial Thromb [facility] 11/05 17:33 Order name: PTT, Activated Partial Thromb [facility] 11/05 17:33 Order name: Troponin High Sensitivity [facility] 11/05 17:33 Order name: Troponin High Sensitivity [facility] 11/05 17:33 Order name: Troponin High Sensitivity [facility] 11/05 13:07 Order name: XRAY Chest (1 view); Complete Time: 14:[address] [facility] 11/05 15:46 Order name: BIPAP [facility] 11/05 13:07 Order name: EKG; Complete Time: 13:[address] [facility] 11/05 15:24 Order name: EKG; Complete Time: 15:[address] [facility] 11/05 17:33 Order name: CONS Physician Consult [facility] 11/05 17:33 Order name: Heart Healthy [facility] 11/05 17:33 Order name: EKG Electrocardiogram [facility] 11/05 17:33 Order name: EKG Electrocardiogram [facility] 11/05 13:07 Order name: Cardiac monitoring; Complete Time: 14:[address] [facility] 11/05 13:07 Order name: EKG - Nurse/Tech; Complete Time: 14:[address] [facility] 11/05 13:07 Order name: IV Saline Lock; Complete Time: 14:[address] [facility] 11/05 13:07 Order name: Labs collected and sent; Complete Time: 14:[address] [facility] 11/05 13:07 Order name: O2 Per Protocol; Complete Time: 14:[address] [facility] 11/05 13:07 Order name: O2 Sat Monitoring; Complete Time: 14:[address] [facility] 11/05 14:15 Order name: Labs - recollect needed: recollect chemistries and blue top; Complete Time: eb 15:11/05 15:24 Order name: EKG - Nurse/Tech; Complete Time: 17:[address] [facility] EC:26 Rate is 77 beats/min. Rhythm is irregularly irregular. T waves are Normal. Clinical dora impression: Atrial Fibrillation. Administered Medications: 15:40 CANCELLED (Duplicate Order): MethylPrednisoLONE IVP 125 mg IVP once dora 16:40 Drug: Famotidine IVP 20 mg Route: IVP; Site: right antecubital; db 18:37 Follow up: Response: No adverse reaction db 16:42 Drug: Decadron - Dexamethasone IVP 10 mg Route: IVP; Site: right antecubital; db 18:37 Follow up: Response: No adverse reaction db 16:47 Drug: levofloxacin IVPB 500 mg Volume: 100 ml; Route: IVPB; Infused Over: 60 mins; db Site: right antecubital; 17:50 Follow up: Response: No adverse reaction; IV Status: Completed infusion; IV Intake: db 100ml 16:48 Drug: Ipratropium Inhalation Aerosol 0.5 mg Route: Inhalation; db 18:37 Follow up: Response: No adverse reaction db 16:50 Drug: Levalbuterol Inhalation 3.75 mg Route: Inhalation; db 17:23 Drug: Levalbuterol Inhalation 1.25 mg Route: Inhalation; db 18:37 Follow up: Response: No adverse reaction db Disposition Summary: 11/05/22 15:33 Hospitalization Ordered Hospitalization Status: Inpatient Admission dora Provider: Christy Costello cha Location: Telemetry/MedSurg (Inpatient) dora Condition: Fair dora Problem: new dora Symptoms: have improved dora Bed/Room Type: Standard dora Room Assignment: 206(11/05/22 18:32) dw Diagnosis - COPD/ Chronic obstructive pulmonary disease with (acute) exacerbation dora - Hypoxemia dora - Dyspnea dora - Tobacco abuse counseling dora - Tobacco use dora - Chronic atrial fibrillation dora - Acute and chronic respiratory failure with hypercapnia dora - Respiratory failure, unspecified, unspecified whether with hypoxia or hypercapnia dora Forms: - Medication Reconciliation Form dora - SBAR form dora Signatures: Dispatcher [employer] Eloise Abbott RN RN dw Jaziel Looney MD MD cha Botello, Elizabeth eb Nieto, Raymond, MD MD rn3 Agueda Oropeza RN RN db Corrections: (The following items were deleted from the chart) 15:40 15:20 MethylPrednisoLONE IVP 125 mg IVP once ordered. dora dora 18:32 15:33 dora dw
--- NOTE | 2022-11-05 15:34 | ER ---
Nurse's Notes [facility] Name: Trang Ledesma Age: 77 yrs Sex: Female : 1945 Arrival Date: 11/05/2022 Time: 12:55 Bed 14 Private MD: Diagnosis: COPD/ Chronic obstructive pulmonary disease with (acute) exacerbation;Hypoxemia;Dyspnea;Tobacco abuse counseling;Tobacco use;Chronic atrial fibrillation;Acute and chronic respiratory failure with hypercapnia;Respiratory failure, unspecified, unspecified whether with hypoxia or hypercapnia Presentation: 11/05 12:56 Chief complaint: EMS states: patient called EMS for SOB. 90% on RA per EMS. upon db arrival on 4L NC patient is 90% O2. patient recently released from [facility] 2 days ago. Patient seen coughing up blood by family. Pt has audible wheezes. Given DuoNeb x 2 and 125 mg IVP solumedrol. HX of Afib. Coronavirus screen: Vaccine status: Patient reports receiving the 2nd dose of the covid vaccine. Client denies travel out of the [place] in the last 14 days. Client presents with at least one sign or symptom that may indicate coronavirus-19. At this time, the client does not indicate any symptoms associated with coronavirus-19. Ebola Screen: Patient negative for fever greater than or equal to 101.5 degrees Fahrenheit, and additional compatible Ebola Virus Disease symptoms Patient denies exposure to infectious person. Patient denies travel to an Ebola-affected area in the 21 days before illness onset. No symptoms or risks identified at this time. Initial Sepsis Screen: Does the patient meet any 2 criteria? No. Patient's initial sepsis screen is negative. Does the patient have a suspected source of infection? No. Patient's initial sepsis screen is negative. Risk Assessment: Do you want to hurt yourself or someone else? Patient reports no desire to harm self or others. Onset of symptoms was November 05, 2022. Care prior to arrival: Medication(s) given: solumedrol 125 mg and Duo Neb x 2. 12:56 Method Of Arrival: EMS: [facility] db 12:56 Acuity: ZUNILDA 2 db Triage Assessment: 13:06 General: Appears in no apparent distress. uncomfortable, patient talking with db granddaughter. Behavior is calm, cooperative. Pain: Complains of pain in chest. Respiratory: Reports shortness of breath at rest cough that is productive, labored breathing Breath sounds are coarse bilaterally. Onset: The symptoms/episode began/occurred today, the patient has moderate shortness of breath. Historical: - Allergies: 13:08 Sulfa (Sulfonamide Antibiotics); db 13:08 PENICILLINS; db - PMHx: 13:08 Atrial fibrillation; Chronic obstructive lung disease; db - Immunization history:: Client reports receiving the 2nd dose of the Covid vaccine. - Social history:: Smoking status: Patient reports the use of cigarette tobacco products, smokes one-half pack cigarettes per day. Screenin:07 [facility] ED Fall Risk Assessment (Adult) History of falling in the last 3 months, db including since admission Yes- single mechanical fall (1 pt) Confusion or Disorientation No (0 pts) Intoxicated or Sedated No (0 pts) Impaired Gait Yes (1 pt) Mobility Assist Device Used Yes (1 pt) Altered Elimination No (0 pt) Score/Fall Risk Level 3 or more points = High Risk Oriented to surroundings, Maintained a safe environment, Educated pt \T\ family on fall prevention, incl call for assistance when getting out of bed. Abuse screen: Denies threats or abuse. Denies injuries from another. Nutritional screening: No deficits noted. Tuberculosis screening: No symptoms or risk factors identified. Assessment: 13:09 Reassessment: See triage for initial assessment. db 14:06 Reassessment: Patient appears in no apparent distress at this time. Patient and/or db family updated on plan of care and expected duration. Pain level reassessed. Patient is alert, oriented x 3, equal unlabored respirations, skin warm/dry/pink. phlebotomy is at bedside. 14:07 Reassessment: Patient appears in no apparent distress at this time. Patient and/or db family updated on plan of care and expected duration. Pain level reassessed. Patient is alert, oriented x 3, equal unlabored respirations, skin warm/dry/pink. Pain: Complains of pain in chest, left ribs. Neuro: Level of Consciousness is awake, alert, obeys commands, Oriented to person, place, time, situation. Cardiovascular: Rhythm is atrial fibrillation. Respiratory: Airway is patent Respiratory effort is even, labored, Respiratory pattern is regular, symmetrical, Breath sounds are coarse bilaterally. 15:13 Reassessment: Patient is alert, oriented x 3, equal unlabored respirations, skin db warm/dry/pink. Dr. Looney at patient bedside. 16:56 Reassessment: Patient appears in no apparent distress at this time. Patient and/or db family updated on plan of care and expected duration. Pain level reassessed. Patient is alert, oriented x 3, equal unlabored respirations, skin warm/dry/pink. breathing treatment going. Daughter at bedside. patient on Bipap. 17:30 Reassessment: Patient appears in no apparent distress at this time. Patient and/or db family updated on plan of care and expected duration. Pain level reassessed. Patient is alert, oriented x 3, equal unlabored respirations, skin warm/dry/pink. family is at bedside. 17:30 Reassessment: Patient appears in no apparent distress at this time. Patient and/or db family updated on plan of care and expected duration. Pain level reassessed. Patient is alert, oriented x 3, equal unlabored respirations, skin warm/dry/pink. General: Appears in no apparent distress. comfortable, Behavior is calm, cooperative. 18:35 Reassessment: Called to give report. [facility] does not have staff and to give report db after shift change. 18:41 Reassessment: Patient appears in no apparent distress at this time. Patient and/or db family updated on plan of care and expected duration. Pain level reassessed. Patient is alert, oriented x 3, equal unlabored respirations, skin warm/dry/pink. General: Appears in no apparent distress. comfortable. 19:15 Reassessment: Patient appears in no apparent distress at this time. Patient and/or jb4 family updated on plan of care and expected duration. Pain level reassessed. Patient is alert, oriented x 3, equal unlabored respirations, skin warm/dry/pink. 19:55 Reassessment: Patient appears in no apparent distress at this time. Patient and/or jb4 family updated on plan of care and expected duration. Pain level reassessed. Patient is alert, oriented x 3, equal unlabored respirations, skin warm/dry/pink. Vital Signs: 12:56 BP 151 / 77; Pulse 72; Resp 20; Temp 98.7; Pulse Ox 90% on 4 lpm NC; Weight 74.84 kg; db Height 5 ft. 5 in. ; 14:00 BP 164 / 67; Pulse 79; Resp 18; Pulse Ox 92% on 4 lpm NC; db 15:30 BP 151 / 68; Pulse 77; Resp 20; Pulse Ox 91% on 4 lpm NC; db 16:30 BP 181 / 93; Pulse 82; Resp 20 S; Pulse Ox 100% on BiPAP; db 17:30 BP 154 / 71; Pulse 80; Resp 18; Pulse Ox 100% on BiPAP; db 18:30 BP 162 / 114; Pulse 83; Resp 18; Pulse Ox 100% on BiPAP; db 19:30 BP 169 / 77; Pulse 75; Resp 20; Pulse Ox 100% on BiPAP; jb4 12:56 Body Mass Index 27.46 (74.84 kg, 165.1 cm) db Vitals: 15:30 Cardiac Rhythm Assessment Irregular. db ED Course: 12:59 Patient arrived in ED. eb 13:03 Agueda Oropeza, RN is Primary Nurse. db 13:05 Jaziel Looney MD is Attending Physician. dora 13:06 Triage completed. db 13:06 Arm band placed on Patient placed in an exam room. db 13:09 Maintain EMS IV. Dressing intact. Gauge \T\ site: 22G L Hand. db 13:29 XRAY Chest (1 view) In Process Unspecified. EDMS 13:45 First set of blood cultures drawn by me. db 13:45 Inserted saline lock: 22 gauge in right hand, using aseptic technique. Blood collected. db 14:08 Patient has correct armband on for positive identification. Bed in low position. Call db light in reach. Side rails up X2. Client placed on continuous cardiac and pulse oximetry monitoring. NIBP monitoring applied. Warm blanket given. 14:08 Missed attempt(s): 22 gauge in right antecubital area. Bleeding controlled, band aid db applied, catheter tip intact. 15:31 Christy Costello MD is Hospitalizing Provider. dora 17:23 Missed attempt(s):. db 18:36 No provider procedures requiring assistance completed. Patient admitted, IV remains in db place. Administered Medications: 15:40 CANCELLED (Duplicate Order): MethylPrednisoLONE IVP 125 mg IVP once dora 16:40 Drug: Famotidine IVP 20 mg Route: IVP; Site: right antecubital; db 18:37 Follow up: Response: No adverse reaction db 16:42 Drug: Decadron - Dexamethasone IVP 10 mg Route: IVP; Site: right antecubital; db 18:37 Follow up: Response: No adverse reaction db 16:47 Drug: levofloxacin IVPB 500 mg Volume: 100 ml; Route: IVPB; Infused Over: 60 mins; db Site: right antecubital; 17:50 Follow up: Response: No adverse reaction; IV Status: Completed infusion; IV Intake: db 100ml 16:48 Drug: Ipratropium Inhalation Aerosol 0.5 mg Route: Inhalation; db 18:37 Follow up: Response: No adverse reaction db 16:50 Drug: Levalbuterol Inhalation 3.75 mg Route: Inhalation; db 17:23 Drug: Levalbuterol Inhalation 1.25 mg Route: Inhalation; db 18:37 Follow up: Response: No adverse reaction db Medication: 18:36 VIS not applicable for this client. db Intake: 17:50 IV: 100ml; Total: 100ml. db Outcome: 15:33 Decision to Hospitalize by Provider. dora 18:36 Admitted to ER Hold. Please see [facility] for further documentation. db 18:36 Condition: stable 18:36 Instructed on the need for admit. 20:33 Patient left the ED. jb4 Signatures: Dispatcher [employer] EDMS Jaziel Looney MD MD cha Bryson, James, SANFORD RN jb4 Deborah Ramirez Danielle, RN RN db Corrections: (The following items were deleted from the chart) 14:07 14:06 Inserted saline lock: 22 gauge in right hand, using aseptic technique. Blood db collected. db 14:07 14:07 [facility] ED Fall Risk Assessment (Adult) History of falling in the last 3 months, db including since admission No falls in past 3 months (0 pts) Confusion or Disorientation No (0 pts) Intoxicated or Sedated No (0 pts) Impaired Gait No (0 pts) Mobility Assist Device Used No (0 pt) Altered Elimination No (0 pt) Score/Fall Risk Level 0 - 2 = Low Risk Oriented to surroundings, Maintained a safe environment, db
[2022-11-05 15:43] LABS: Arterial Blood Carboxyhemoglob 1.6 % (0-1.5); Blood Gas Oxyhemoglobin 89.4 % (94-97); Blood O2 Saturation 92.1 % (92-98.5)
[2022-11-05] MEDS ORDERED: dexAMETHasone 10 MG/ML VIAL ONE (16:45)
[2022-11-05] MEDS ORDERED: LEVALBUTEROL 1.25 MG/3 ML NEB ONE (16:45)
[2022-11-05] MEDS ORDERED: FAMOTIDINE 20 MG/2 ML VIAL IV ONE (16:46)
[2022-11-05] MEDS ORDERED: Levofloxacin500mg IV 500 MG/100 ML BAG IV ONE (16:46)
[2022-11-05] MEDS ORDERED: IPRATROPIUM BROM 0.5MG/2.5ML ONE (16:46)
[2022-11-05] MEDS ORDERED: ONDANSETRON 4 MG/2 ML VIAL IV PRN (17:28)
[2022-11-05] MEDS ORDERED: ACETAMINOPHEN 500 MG TAB PO PRN (17:28)
[2022-11-05] MEDS: IPRATROPIUM BROM 0.5MG/2.5ML NEB SCH (20:45)
[2022-11-05] MEDS: ALBUTEROL 2.5 MG/3 ML NEB SOL NEB SCH (20:45)
[2022-11-05] MEDS: INSULIN -REGULAR HUMAN 50 UNIT/0.5 ML ML SQ SCH (21:00)
[2022-11-05 21:13] VITALS: BMI 31.1
[2022-11-05] MEDS: NA CHLORIDE 0.9% 1,000 ML IV SCH (22:34)
[2022-11-05] MEDS: MORPHINE 2 MG/ML SYR IV PRN (22:35)
[2022-11-05] MEDS: MELATONIN 5 MG TABLET PO PRN (22:35)
[2022-11-06] MEDS: IPRATROPIUM BROM 0.5MG/2.5ML NEB SCH ×4 (01:50→20:25)
[2022-11-06] MEDS: ALBUTEROL 2.5 MG/3 ML NEB SOL NEB SCH ×4 (01:50→20:25)
[2022-11-06 06:18] LABS: Absolute Lymphocytes (CBC) 0.1 K/uL (0.7-4.9); Hematocrit 35.9 % (36.0-45.0); Lymphocytes % 6.5 % (15.3-44.8); MCV 91.3 fL (80-100); MPV 8.9 fL (7.6-11.3); RBC Red Blood Cell Count 3.93 M/uL (3.86-4.86)
[2022-11-06 06:29] LABS: Albumin 2.7 g/dL (3.4-5.0); Bilirubin Total 0.5 mg/dL (0.2-1.0); Potassium 4.7 mEq/L (3.5-5.1); Protein, Total 5.5 g/dL (6.4-8.2)
[2022-11-06 06:35] LABS: Protime INR 1.07
[2022-11-06 07:19] LABS: Platelet Estimate ADEQ; White Blood Cell Scan OK (OK)
[2022-11-06 07:20] LABS: Blood Morphology Comment NOT SEEN (NOT SEEN)
--- NOTE | 2022-11-06 07:46 | P.HP ---
Certification for Inpatient Patient admitted to: Inpatient With expected LOS: >2 Midnights Patient will require the following post-hospital care: None Practitioner: I am a practitioner with admitting privileges, knowledge of patient current condition, hospital course, and medical plan of care. Services: Services provided to patient in accordance with Admission requirements found in Title 42 Section 412.3 of the Code of Federal Regulations Patient History Date of Service: 11/05/22 Reason for admission: Shortness of breath History of Present Illness: Patient is a 77-year-old female who came to the hospital with shortness of breath. Patient states she has been getting short of breath with more activity. She has been having cough and congestion so she came to the emergency room for further evaluation. In the ER she was lightheaded and had a low-grade fever. She had a work-up done in the emergency room and she was found to be in A-fib with RVR. She also had COPD exacerbation. Patient was admitted to the hospital for further evaluation. Allergies Sulfa (Sulfonamide Antibiotics) Adverse Reaction (Verified 03/28/18 15:27) Anaphylaxis Home Medications: Amlodipine Besylate/Benazepril [Lotrel 10-20 mg Capsule] 5 - 20 mg PO DAILY 03/28/18 Aspirin [Aspir-Low] 81 mg PO DAILY 03/28/18 Carvedilol [Coreg] 12.5 mg PO DAILY 03/28/18 Clopidogrel Bisulfate [Plavix] 75 mg PO DAILY 03/28/18 - Past Medical/Surgical History Has patient received pneumonia vaccine in the past: Yes -: Hypertension -: Coronary artery disease -: COPD Past Surgical History: Patient denies surgical history - Family History Father Family History: Reviewed- Non-Contributory - Social History Smoking Status: Current some day smoker Alcohol use: No CD- Drugs: No Caffeine use: Yes Place of Residence: Home Review of Systems 10-point ROS is otherwise unremarkable Physical Examination - Vital Signs Temperature: 97.4 F Blood Pressure: 183/76 Pulse: 81 Respirations: 20 Pulse Ox (%): 98 - Physical Exam General: Alert, In no apparent distress, Oriented x3 HEENT: Atraumatic, PERRLA, Mucous membr. moist/pink, EOMI, Sclerae nonicteric Neck: Supple, 2+ carotid pulse no bruit, No LAD, Without JVD or thyroid abnormality Respiratory: Diminished, Expiratory wheezes Cardiovascular: Regular rate/rhythm, Normal S1 S2, Systolic murmur Gastrointestinal: Normal bowel sounds, Soft and benign, Non-distended, No tenderness Musculoskeletal: No clubbing, No swelling, No tenderness Integumentary: No rashes Neurological: Normal gait, Normal speech, Normal strength at 5/5 x4 extr, Normal tone, Normal affect Lymphatics: No axilla or inguinal lymphadenopathy - Studies Laboratory Data (last 24 hrs) 11/05/22 14:13: PT 10.7, INR 0.97 11/05/22 14:13: Sodium 142, Potassium 4.5, BUN 57 H, Creatinine 1.15 H, Glucose 135 H, Magnesium 2.5 H, Total Bilirubin 0.6, AST 18, ALT 36, Alkaline Phosphatase 78 11/05/22 13:45: WBC 5.60, Hgb 13.6, Hct 40.9, Plt Count 129 L Microbiology Data (last 24 hrs): 11/05/22 13:15 Nasopharnyx Influenza Type A Antigen Screen - Final 11/05/22 13:15 Nasopharnyx Influenza Type B Antigen Screen - Final Assessment & Plan - Problems (Diagnosis) (1) Atrial fibrillation with rapid ventricular response Current Visit: Yes Status: Acute (2) COPD with acute exacerbation Current Visit: Yes Status: Acute - Advance Directives Does patient have a Living Will: No Does patient have a Durable POA for Healthcare: Yes
[2022-11-06] MEDS: INSULIN -REGULAR HUMAN 50 UNIT/0.5 ML ML SQ SCH ×4 (09:01→20:22)
[2022-11-06] MEDS: carvediloL 12.5 MG TAB PO SCH (09:02)
[2022-11-06] MEDS: CLOPIDOGREL 75 MG TABLET PO SCH (09:02)
[2022-11-06] MEDS: ASPIRIN EC 81 MG TAB PO SCH (09:02)
[2022-11-06] MEDS: LOSARTAN POTASSIUM 50 MG TABLET PO SCH ×2 (09:02→20:22)
[2022-11-06] MEDS: AMLODIPINE 10 MG TAB PO SCH (09:03)
[2022-11-06] MEDS: MORPHINE 2 MG/ML SYR IV PRN ×2 (09:19→20:21)
[2022-11-06] MEDS: NA CHLORIDE 0.9% 1,000 ML IV SCH (17:26)
--- NOTE | 2022-11-06 18:07 | RAD REPORT ---
EXAM DESCRIPTION: RAD - Chest Single View - 11/06/2022 5:55 pm CLINICAL HISTORY: Wheezing/SOB COMPARISON: Chest Single View dated 11/05/2022; Chest Pa And Lat (2 Views) dated 05/31/2020; Chest Pa And Lat (2 Views) dated 03/28/2018; CHEST PA AND LAT 2 VIEW dated 02/28/2011 FINDINGS: Lines: None. Lungs: No evidence of edema or pneumonia. Pleural: No significant pleural effusions or pneumothorax. Cardiac: The heart size is within normal limits. Mediastinum: Within normal limits. Bones: No acute fractures. Other: None IMPRESSION: No acute cardiopulmonary disease.
[2022-11-06] MEDS: FUROSEMIDE 20 MG/ 2ML VIAL IV SCH (18:40)
[2022-11-06] MEDS: BENZONATATE 100 MG CAP PO PRN (20:56)
[2022-11-06] MEDS: dexAMETHasone 4 MG/ML VIAL IV SCH (23:48)
[2022-11-07] MEDS: ALBUTEROL 2.5 MG/3 ML NEB SOL NEB SCH ×4 (03:15→20:00)
[2022-11-07] MEDS: IPRATROPIUM BROM 0.5MG/2.5ML NEB SCH ×4 (03:15→20:00)
[2022-11-07] MEDS: FUROSEMIDE 20 MG/ 2ML VIAL IV SCH ×2 (05:15→17:11)
[2022-11-07] MEDS: dexAMETHasone 4 MG/ML VIAL IV SCH (05:15)
[2022-11-07] MEDS: MORPHINE 2 MG/ML SYR IV PRN ×4 (06:21→21:00)
[2022-11-07] MEDS: INSULIN -REGULAR HUMAN 50 UNIT/0.5 ML ML SQ SCH ×4 (07:30→20:26)
[2022-11-07] MEDS: AMLODIPINE 10 MG TAB PO SCH (08:55)
[2022-11-07] MEDS: LOSARTAN POTASSIUM 50 MG TABLET PO SCH ×2 (08:55→20:26)
[2022-11-07] MEDS: CLOPIDOGREL 75 MG TABLET PO SCH (08:55)
[2022-11-07] MEDS: ASPIRIN EC 81 MG TAB PO SCH (08:55)
[2022-11-07] MEDS: carvediloL 12.5 MG TAB PO SCH (08:55)
[2022-11-07] MEDS: NA CHLORIDE 0.9% 1,000 ML IV SCH (11:13)
[2022-11-07] MEDS ORDERED: dexAMETHasone 4 MG/ML VIAL IV SCH (18:22)
[2022-11-07] MEDS: BUDESONIDE 0.25 MG/2 ML NEB NEB SCH (20:00)
[2022-11-07] MEDS: predniSONE 20 MG TAB PO SCH (20:26)
[2022-11-08] MEDS: ALBUTEROL 2.5 MG/3 ML NEB SOL NEB SCH ×4 (02:30→20:41)
[2022-11-08] MEDS: IPRATROPIUM BROM 0.5MG/2.5ML NEB SCH ×4 (02:30→20:41)
[2022-11-08] MEDS: FUROSEMIDE 20 MG/ 2ML VIAL IV SCH ×2 (05:14→17:00)
--- NOTE | 2022-11-08 07:15 | EKG ---
Test Date: 2022-11-05 Test Time: 14:05:01 Electrification Adviser: JELLY MEASUREMENT RESULTS: Intervals: Rate: 77 AR: QRSD: 84 QT: 354 QTc: 400 [place]: P: AR: QRS: 59 T: 85 INTERPRETIVE STATEMENTS: Atrial fibrillation Septal infarct, age undetermined Abnormal ECG Compared to ECG 05/31/2020 11:41:22 Myocardial infarct finding now present ST (T wave) deviation no longer present Electronically Signed On 11-08-22 07:07:39 CDT by Garcia Hooks
[2022-11-08] MEDS: INSULIN -REGULAR HUMAN 50 UNIT/0.5 ML ML SQ SCH ×4 (07:30→20:14)
[2022-11-08] MEDS: BUDESONIDE 0.25 MG/2 ML NEB NEB SCH ×2 (08:00→21:01)
--- NOTE | 2022-11-08 08:30 | ECHO ---
HEIGHT: 5 ft 5 in WEIGHT: 187 lb 0 oz DATE OF STUDY: 11/07/[address]: Garcia Hooks MD 2-DIMENSIONAL: YES M.MODE: YES DOPPLER: YES COLOR FLOW: YES TDS: PORTABLE: YES DEFINITY: BUBBLE STUDY: DIAGNOSIS: SHORTNESS OF BREATH, CHEST PAIN CARDIAC HISTORY: CATHERIZATION: YES SURGERY: NO PROSTHETIC VALVE: NO PACEMAKER: NO MEASUREMENTS (cm) DIASTOLIC (NORMALS) SYSTOLIC (NORMALS) IVSd 1.2 (0.6-1.2) LA Diam 4.1 (1.9-4.0) LVEF 65-69% LVIDd 4.5 (3.5-5.7) LVIDs 3.4 (2.0-3.5) %FS % LVPWd 1.2 (0.6-1.2) Ao Diam 2.5 (2.0-3.7) 2 DIMENSIONAL ASSESSMENT: RIGHT ATRIUM: NORMAL LEFT ATRIUM: DILATED RIGHT VENTRICLE: NORMAL LEFT VENTRICLE: TRICUSPID VALVE: NORMAL MITRAL VALVE: PULMONIC VALVE: NORMAL AORTIC VALVE: SCLEROSIS PERICARDIAL EFFUSION: NONE AORTIC ROOT: LEFT VENTRICULAR WALL MOTION: NORMAL. DECREASED LEFT VENTRICULAR COMPLIANCE. DOPPLER/COLOR FLOW: NORMAL COMMENTS: 1. AORTIC SCLEROSIS. 2. NORMAL LEFT VENTRICULAR SIZE AND EJECTION FRACTION 3. DIASTOLIC DYSFUNCTION TECHNOLOGIST: CAT JAIME
[2022-11-08] MEDS: ASPIRIN EC 81 MG TAB PO SCH (08:33)
[2022-11-08] MEDS: predniSONE 20 MG TAB PO SCH ×2 (08:33→20:14)
[2022-11-08] MEDS: LOSARTAN POTASSIUM 50 MG TABLET PO SCH ×2 (08:33→20:14)
[2022-11-08] MEDS: carvediloL 12.5 MG TAB PO SCH (08:33)
[2022-11-08] MEDS: CLOPIDOGREL 75 MG TABLET PO SCH (08:33)
[2022-11-08] MEDS: AMLODIPINE 10 MG TAB PO SCH (08:34)
[2022-11-08] MEDS: MORPHINE 2 MG/ML SYR IV PRN ×3 (08:36→16:52)
--- NOTE | 2022-11-08 08:46 | RAD REPORT ---
EXAM DESCRIPTION: CT - Chest For Pe Angio - 11/08/2022 8:04 am CLINICAL HISTORY: Shortness of breath/hypoxemia COMPARISON: None. TECHNIQUE: Dynamically enhanced axial 3 mm thick images of the chest were obtained during administra tion of 75 mL Isovue 370 IV contrast. Coronal and oblique reconstruction images were generated and re viewed. Exam utilizes a protocol for optimal evaluation of pulmonary arterial tree. Maximum intensity projections 3D imaging was utilized All CT scans are performed using dose optimization technique as appropriate and may include automated exposure control or mA/KV adjustment according to patient size. FINDINGS: A pulmonary embolus is not seen. A thoracic aortic aneurysm is not noted. A pleural effusion is not seen. A pericardial effusion is not seen. A lung consolidation is not present. IMPRESSION: Negative for a pulmonary embolism.
--- NOTE | 2022-11-08 09:04 | P.PN ---
Date of Service: 11/06/22 Subjective Pt is doing well; gets SOB on exertion; follows with cardiology. Continue with CHF and COPD rx Physical Examination - Vital Signs reviewed - Physical Exam General: Alert, In no apparent distress, Oriented x3 Respiratory: Diminished, Expiratory wheezes Cardiovascular: Regular rate/rhythm, Normal S1 S2, Systolic murmur Gastrointestinal: Normal bowel sounds, Soft and benign, Non-distended, No tenderness Musculoskeletal: No clubbing, No swelling, No tenderness Neurological: Normal gait, Normal speech, Normal strength at 5/5 x4 extr, Normal tone, Normal affect Assessment & Plan - Problems (Diagnosis) (1) Atrial fibrillation with rapid ventricular response Current Visit: Yes Status: Acute (2) COPD with acute exacerbation Current Visit: Yes Status: Acute (3) Acute CHF, diastolic heart failure; HFpEF Current Visit: Yes Status: Acute (4) CAD/HTN Current Visit: Yes Status: Chronic PLAN: 1. Medication for rate control 2. Anticoagulation 3. Nebs 4. Steroids 5. Continue BP meds - Advance Directives Does patient have a Living Will: No Does patient have a Durable POA for Healthcare: Yes
--- NOTE | 2022-11-08 09:06 | P.PN ---
Date of Service: 11/07/22 Subjective Pt was more SOB; added steroids. Will get CT Physical Examination - Vital Signs reviewed - Physical Exam General: Alert, In no apparent distress, Oriented x3 Respiratory: Diminished, Expiratory wheezes Cardiovascular: Regular rate/rhythm, Normal S1 S2, Systolic murmur Gastrointestinal: Normal bowel sounds, Soft and benign, Non-distended, No tenderness Musculoskeletal: No clubbing, No swelling, No tenderness Neurological: Normal gait, Normal speech, Normal strength at 5/5 x4 extr, Normal tone, Normal affect Assessment & Plan - Problems (Diagnosis) (1) Atrial fibrillation with rapid ventricular response Current Visit: Yes Status: Acute (2) COPD with acute exacerbation Current Visit: Yes Status: Acute (3) Acute CHF, diastolic heart failure; HFpEF Current Visit: Yes Status: Acute (4) CAD/HTN Current Visit: Yes Status: Chronic PLAN: Continue with POC as mentioned below: 1. Medication for rate control 2. Anticoagulation 3. Nebs 4. Steroids 5. Diuresis 6. CT chest 7. Continue BP meds 8. GI/DVT prophylaxis - Advance Directives Does patient have a Living Will: No Does patient have a Durable POA for Healthcare: Yes
[2022-11-08 10:34] LABS: Absolute Lymphocytes (CBC) 0.4 K/uL (0.7-4.9); Hematocrit 41.1 % (36.0-45.0); Lymphocytes % 5.2 % (15.3-44.8); MCV 90.4 fL (80-100); MPV 8.8 fL (7.6-11.3); RBC Red Blood Cell Count 4.55 M/uL (3.86-4.86)
[2022-11-08 10:55] LABS: Potassium 4.1 mEq/L (3.5-5.1)
--- NOTE | 2022-11-08 11:34 | CON ---
Date of Consultation: 11/06/2022 Reason For Consultation: Atrial fibrillation and shortness of breath. History Of Present Illness: Ms. Ledesma is 77. Has a history of COPD and AFib. Sees Dr. Marie. Came in with shortness of breath. Denied chest pain, nausea, vomiting, diaphoresis, PND, orthopnea, pedal edema, palpitation, or syncope. Her pO2 was 69, pCO2 was 67, pH was 7.26 on CPAP and BiPAP. O2 saturation was 99%. She was hypertensive with blood pressure 183/76, it was 200 when she first ca me into the emergency room. She was in AFib at a rate of 81 and platelets were low at 94. BNP was 4 675. She is presently on inhalers, Coreg, and insulin, and she is breathing much better. Past Medical History: As stated above. Allergies: SHE IS ALLERGIC TO SULFA. Medications: At home include Lotrel, aspirin, Coreg, and Plavix. Past Surgical History: Ms. Ledesma has had stent in the past. Last catheterization was May. Review of Systems: Negative. Social History: Negative. Family History: Negative. Physical Examination: General: No acute distress, on BiPAP and CPAP. Vital Signs: AFib at 81, afebrile, blood pressure 183/76. HEENT: Negative. Neck: Supple with no bruit. Chest: Revealed wheezing bilaterally. Cardiac: Revealed S4 gallops, atrial fibrillation. Abdomen: Obese, but benign. Extremities: Revealed trace edema. Diagnostic Data: As stated earlier. Impression And Plan: 1.Atrial fibrillation, rate controlled. 2.Chronic obstructive pulmonary disease. 3.History of coronary artery disease, status post stent. 4.Hypertension. 5.Thrombocytopenia. Echocardiogram is pending on Ms. Ledesma. I think we need to consider anticoag ulation, although I am concerned about her low platelets. I will discuss that further with Dr. Costello. She is already on aspirin and Plavix. We will see what the echo shows before making such a decisio n. No need for any cardiac invasive workup at this point. Continue present regimen. NB/MODL Voice ID: [id number] Report ID: [id number]
--- NOTE | 2022-11-08 12:52 | PN ---
Date of Progress Note: 11/07/2022 Ms. Ledesma was admitted to Dr. Costello. She was admitted with atrial fibrillation, COPD, thrombocytope dave, hypertension that is poorly controlled. Today, her blood pressure is better, her heart rate sti ll in atrial fibrillation is better. Echocardiogram showed some mild diastolic dysfunction with norm al ejection fraction. She is on inhalers, Coreg, and insulin. I think she needs to continue her med ications at home included aspirin, Plavix, Lotrel, and Coreg. She probably should be on a low dose L asix as well. As far her atrial fibrillation is concerned, it may be reasonable to put her on a low- dose Eliquis because of her low platelets at 2.5 b.i.d., but otherwise she can go home whenever it is okay with Dr. Costello. I will sign off her case. VALERIE/[place] Voice ID: [id number] Report ID: [id number]
--- NOTE | 2022-11-08 14:40 | EKG ---
Test Date: 2022-11-06 Test Time: 22:30:30 [employer]: HB MEASUREMENT RESULTS: Intervals: Rate: 87 [place]: QRSD: 72 QT: 336 QTc: 404 [place]: P: [place]: QRS: 35 T: 69 INTERPRETIVE STATEMENTS: Atrial fibrillation Septal infarct, age undetermined Abnormal ECG Compared to ECG 11/05/2022 14:05:01 No significant changes Electronically Signed On 11-08-22 14:37:59 CDT by Jose Maria Bragg
[2022-11-09] MEDS: ALBUTEROL 2.5 MG/3 ML NEB SOL NEB SCH ×4 (01:28→19:35)
[2022-11-09] MEDS: IPRATROPIUM BROM 0.5MG/2.5ML NEB SCH ×4 (01:28→19:35)
[2022-11-09] MEDS: MORPHINE 2 MG/ML SYR IV PRN ×5 (01:42→21:12)
[2022-11-09] MEDS: FUROSEMIDE 20 MG/ 2ML VIAL IV SCH (05:14)
--- NOTE | 2022-11-09 05:20 | P.PN ---
Date of Service: 11/08/22 Subjective Patient is doing better. Wean off of the steroids. Change to oral steroids and oral antibiotics and steroids. Increase physical activity and increase nutritional status. Physical Examination - Vital Signs reviewed - Physical Exam General: Alert, In no apparent distress, Oriented x3 Respiratory: Clear bilaterally but end-expiratory wheezing Cardiovascular: Regular rate/rhythm, Normal S1 S2, Systolic murmur Gastrointestinal: Normal bowel sounds, Soft and benign, Non-distended, No tenderness Musculoskeletal: No clubbing, No swelling, No tenderness Neurological: Normal gait, Normal speech, Normal strength at 5/5 x4 extr, Normal tone, Normal affect Assessment & Plan - Problems (Diagnosis) (1) Atrial fibrillation with rapid ventricular response Current Visit: Yes Status: Acute (2) COPD with acute exacerbation Current Visit: Yes Status: Acute (3) Acute CHF, diastolic heart failure; HFpEF Current Visit: Yes Status: Acute (4) CAD/HTN Current Visit: Yes Status: Chronic PLAN: Continue with POC as mentioned below: 1. Medication for rate control 2. Anticoagulation 3. Nebs 4. Steroids 5. Diuresis 6. CT chest with no significant abnormalities 7. Continue BP meds 8. GI/DVT prophylaxis - Advance Directives Does patient have a Living Will: No Does patient have a Durable POA for Healthcare: Yes
[2022-11-09] MEDS: INSULIN -REGULAR HUMAN 50 UNIT/0.5 ML ML SQ SCH ×4 (07:30→21:00)
[2022-11-09 08:08] LABS: Absolute Lymphocytes (CBC) 0.4 K/uL (0.7-4.9); Hematocrit 40.7 % (36.0-45.0); Lymphocytes % 6.2 % (15.3-44.8); MCV 90.5 fL (80-100); MPV 8.9 fL (7.6-11.3)
[2022-11-09] MEDS: BUDESONIDE 0.25 MG/2 ML NEB NEB SCH ×2 (08:15→19:35)
[2022-11-09 08:20] LABS: Magnesium 2.3 mg/dL (1.6-2.4); Potassium 4.5 mEq/L (3.5-5.1)
[2022-11-09] MEDS: carvediloL 12.5 MG TAB PO SCH (08:42)
[2022-11-09] MEDS: predniSONE 20 MG TAB PO SCH ×2 (08:42→21:13)
[2022-11-09] MEDS: CLOPIDOGREL 75 MG TABLET PO SCH (08:42)
[2022-11-09] MEDS: ASPIRIN EC 81 MG TAB PO SCH (08:42)
[2022-11-09] MEDS: LOSARTAN POTASSIUM 50 MG TABLET PO SCH ×2 (08:42→21:13)
[2022-11-09] MEDS: AMLODIPINE 10 MG TAB PO SCH (08:42)
[2022-11-09] MEDS: MELATONIN 5 MG TABLET PO PRN (21:12)
[2022-11-09] MEDS: BENZONATATE 100 MG CAP PO PRN (21:12)
[2022-11-10] MEDS: ALBUTEROL 2.5 MG/3 ML NEB SOL NEB SCH ×4 (00:20→19:50)
[2022-11-10] MEDS: IPRATROPIUM BROM 0.5MG/2.5ML NEB SCH ×4 (00:20→19:50)
[2022-11-10] MEDS ORDERED: LABETALOL 20 MG/4ML SYRINGE IV ONE (04:50)
[2022-11-10] MEDS: MORPHINE 2 MG/ML SYR IV PRN ×4 (04:51→18:31)
[2022-11-10] MEDS: INSULIN -REGULAR HUMAN 50 UNIT/0.5 ML ML SQ SCH ×4 (07:30→20:23)
--- NOTE | 2022-11-10 08:16 | P.PN ---
Date of Service: 11/09/22 Subjective patient is doing well. CT scan was unremarkable for any acute findings. Patient needs to get out of bed and ambulate. She needs to build her strength up. Spoke with her and she does think she needs a couple more days in the hospital. Anticipate discharge over the next 48 hours. Physical Examination - Vital Signs reviewed - Physical Exam General: Alert, In no apparent distress, Oriented x3 Respiratory: Clear bilaterally but end-expiratory wheezing Cardiovascular: Regular rate/rhythm, Normal S1 S2, Systolic murmur Gastrointestinal: Normal bowel sounds, Soft and benign, Non-distended, No tenderness Musculoskeletal: No clubbing, No swelling, No tenderness Neurological: Normal gait, Normal speech, Normal strength at 5/5 x4 extr, Normal tone, Normal affect Assessment & Plan - Problems (Diagnosis) (1) Atrial fibrillation with rapid ventricular response Current Visit: Yes Status: Acute (2) COPD with acute exacerbation Current Visit: Yes Status: Acute (3) Acute CHF, diastolic heart failure; HFpEF Current Visit: Yes Status: Acute (4) CAD/HTN Current Visit: Yes Status: Chronic PLAN: Continue with POC as mentioned below: 1. Medication for rate control 2. Anticoagulation 3. Nebs 4. Steroids 5. Diuresis 6. CT chest with no significant abnormalities 7. Continue BP meds 8. GI/DVT prophylaxis - Advance Directives Does patient have a Living Will: No Does patient have a Durable POA for Healthcare: Yes
[2022-11-10] MEDS ORDERED: carvediloL 25 MG TAB PO ONE (08:17)
[2022-11-10] MEDS: BUDESONIDE 0.25 MG/2 ML NEB NEB SCH ×2 (08:30→19:50)
[2022-11-10] MEDS: predniSONE 20 MG TAB PO SCH ×2 (09:17→20:23)
[2022-11-10] MEDS: ASPIRIN EC 81 MG TAB PO SCH (09:17)
[2022-11-10] MEDS: CLOPIDOGREL 75 MG TABLET PO SCH (09:18)
[2022-11-10] MEDS: DILTIAZEM HCL 120 MG SR CAP PO SCH (09:18)
[2022-11-10] MEDS: LOSARTAN POTASSIUM 50 MG TABLET PO SCH ×2 (09:18→20:23)
[2022-11-10] MEDS: APIXABAN 5 MG TABLET PO SCH ×2 (09:18→20:23)
--- NOTE | 2022-11-10 11:16 | P.CNS ---
Date of Consult: 11/10/22 Reason for Consult: COPD exacerbation Chief Complaint: Shortness of breath History of Present Illness: Patient is 77 years of age history of COPD he has been having problems for the past 1 to 2 months was in [facility] discharge came back again to this hospital complaining of worsening dyspnea and continues to smoke does use an inhaler at home he has 1 kidney is numerous stents feeling better has home oxygen Allergies Sulfa (Sulfonamide Antibiotics) Adverse Reaction (Verified 03/28/18 15:27) Anaphylaxis Home Medications: Amlodipine Besylate/Benazepril [Lotrel 10-20 mg Capsule] 5 - 20 mg PO DAILY 03/28/18 Aspirin [Aspir-Low] 81 mg PO DAILY 03/28/18 Carvedilol [Coreg] 12.5 mg PO DAILY 03/28/18 Clopidogrel Bisulfate [Plavix] 75 mg PO DAILY 03/28/18 Apixaban [Eliquis] 5 mg PO BID 30 Days #60 11/10/22 Apixaban [Eliquis] 5 mg PO BID 30 Days #60 tablet 11/10/22 Fluticasone/Umeclidin/Vilanter [Trelegy Ellipta 100-62.5-25] 1 each IH DAILY 30 Days #30 aero 11/10/22 predniSONE [Prednisone*] 10 mg PO BID #20 tab 11/10/22 - Past Medical/Surgical History -: Hypertension -: Coronary artery disease -: COPD - Family History Father Family History: Reviewed- Non-Contributory - Social History Smoking Status: Current every day smoker Alcohol use: No CD- Drugs: No Caffeine use: Yes Place of Residence: Home Review of Systems 10-point ROS is otherwise unremarkable General: Weakness Respiratory: Shortness of Breath Physical Examination Temp Pulse Resp BP Pulse Ox 97.3 F 81 18 198/91 H 97 11/10/22 04:00 11/10/22 09:18 11/10/22 09:15 11/10/22 09:18 11/10/22 09:15 General: Alert, In no apparent distress, Oriented x3 HEENT: Atraumatic Neck: Supple Respiratory: Clear to auscultation bilaterally, Diminished Cardiovascular: No edema, Normal pulses, Regular rate/rhythm Gastrointestinal: Normal bowel sounds, Soft and benign - Problems (1) COPD with acute exacerbation Current Visit: Yes Status: Acute Plan: Patient is 77 years of age with a history of COPD admitted with an exacerbation still continues to smoke currently takes red and white inhaler at home probably a Symbicort is doing better evidence of pneumonia patient presumably has severe COPD was mildly hypercapnic he has [address] [place] he had numerous stents in the heart legs kidneys and the carotid artery on the left side patient's blood pressure is elevated is under control stable for discharge patient has home O2 evaluate for portable oxygen concentrator at the time of follow-up can be discharged home on low-dose prednisone [address] angiogram no evidence of pulmonary embolism (2) Atrial fibrillation with rapid ventricular response Current Visit: Yes Status: Acute Plan: Patient was also admitted with the A-fib on Coreg at home patient needs to be anticoagulated echocardiogram normal left ventricular function diastolic dysfunction
--- NOTE | 2022-11-10 14:44 | P.PN ---
Subjective Date of Service: 11/10/22 Chief Complaint: Shortness of breath Subjective: No new changes, Improving Physical Examination - Vital Signs Temperature: 99.8 F Blood Pressure: 184/86 Pulse: 90 Respirations: 20 Pulse Ox (%): 97 - Physical Exam General: Alert, Oriented x3 HEENT: Atraumatic, Normocephalic Neck: Supple Respiratory: Diminished Cardiovascular: Normal pulses, Regular rate/rhythm, Normal S1 S2 Gastrointestinal: Soft and benign Musculoskeletal: No swelling Neurological: Normal speech - Studies Microbiology Data (last 24 hrs): 11/05/22 14:13 Blood - Blood Aerobic Blood Culture - Final No growth in 5 days. 11/05/22 14:13 Blood - Blood Anaerobic Blood Culture - Final No growth in 5 days. 11/05/22 13:45 Blood - Blood Aerobic Blood Culture - Final No growth in 5 days. 11/05/22 13:45 Blood - Blood Anaerobic Blood Culture - Final No growth in 5 days. Assessment And Plan - Plan Rapid A-fib: Presently bedside rate controlled. We will continue diltiazem and carvedilol COPD exacerbation: We will continue breathing treatment, steroid, antibiotic therapy. CHF: We will continue diuretic therapy. Coronary disease: We will continue statin and antiplatelet drugs. Disposition: Pending review by cardiology, pulmonary.
[2022-11-10] MEDS: carvediloL 25 MG TAB PO SCH (15:13)
[2022-11-10] MEDS: BENZONATATE 100 MG CAP PO PRN (20:31)
[2022-11-10] MEDS: MELATONIN 5 MG TABLET PO PRN (20:41)
[2022-11-11] MEDS: ALBUTEROL 2.5 MG/3 ML NEB SOL NEB SCH ×4 (01:15→19:40)
[2022-11-11] MEDS: IPRATROPIUM BROM 0.5MG/2.5ML NEB SCH ×4 (01:15→19:40)
[2022-11-11] MEDS: carvediloL 25 MG TAB PO SCH ×2 (05:33→16:30)
[2022-11-11] MEDS: INSULIN -REGULAR HUMAN 50 UNIT/0.5 ML ML SQ SCH ×4 (07:30→21:23)
[2022-11-11] MEDS: BUDESONIDE 0.25 MG/2 ML NEB NEB SCH ×2 (08:00→19:40)
[2022-11-11] MEDS: CLOPIDOGREL 75 MG TABLET PO SCH (09:15)
[2022-11-11] MEDS: LOSARTAN POTASSIUM 50 MG TABLET PO SCH ×2 (09:15→20:59)
[2022-11-11] MEDS: ASPIRIN EC 81 MG TAB PO SCH (09:15)
[2022-11-11] MEDS: predniSONE 20 MG TAB PO SCH ×2 (09:15→20:59)
[2022-11-11] MEDS: DILTIAZEM HCL 120 MG SR CAP PO SCH (09:15)
[2022-11-11] MEDS: APIXABAN 5 MG TABLET PO SCH ×2 (09:15→20:59)
[2022-11-11] MEDS: MORPHINE 2 MG/ML SYR IV PRN ×3 (09:20→18:32)
--- NOTE | 2022-11-11 10:27 | P.PN ---
Subjective Date of Service: 11/12/22 Chief Complaint: Shortness of breath Subjective: No new changes, Improving Physical Examination - Vital Signs Temperature: 97.0 F Blood Pressure: 154/60 Pulse: 55 Respirations: 18 Pulse Ox (%): 100 - Physical Exam General: Alert, Oriented x3 HEENT: Atraumatic, Normocephalic Cardiovascular: Regular rate/rhythm, Normal S1 S2 Gastrointestinal: Soft and benign Musculoskeletal: No swelling - Studies Microbiology Data (last 24 hrs): 11/05/22 14:13 Blood - Blood Aerobic Blood Culture - Final No growth in 5 days. 11/05/22 14:13 Blood - Blood Anaerobic Blood Culture - Final No growth in 5 days. 11/05/22 13:45 Blood - Blood Aerobic Blood Culture - Final No growth in 5 days. 11/05/22 13:45 Blood - Blood Anaerobic Blood Culture - Final No growth in 5 days. Assessment And Plan - Plan Rapid A-fib: Presently rate controlled. We will continue diltiazem and carvedilol COPD exacerbation: We will continue breathing treatment, steroid, antibiotic therapy. CHF: We will continue diuretic therapy. Coronary disease: We will continue statin and antiplatelet drugs. Disposition: Pending review by cardiology, pulmonary.
[2022-11-11] MEDS: BENZONATATE 100 MG CAP PO PRN (13:33)
[2022-11-12] MEDS: MORPHINE 2 MG/ML SYR IV PRN ×4 (00:30→12:24)
[2022-11-12] MEDS: ALBUTEROL 2.5 MG/3 ML NEB SOL NEB SCH ×3 (01:50→14:25)
[2022-11-12] MEDS: IPRATROPIUM BROM 0.5MG/2.5ML NEB SCH ×3 (01:50→14:25)
[2022-11-12] MEDS: INSULIN -REGULAR HUMAN 50 UNIT/0.5 ML ML SQ SCH ×2 (07:30→12:24)
[2022-11-12] MEDS: BUDESONIDE 0.25 MG/2 ML NEB NEB SCH (08:25)
[2022-11-12] MEDS: carvediloL 25 MG TAB PO SCH (08:26)
[2022-11-12] MEDS: APIXABAN 5 MG TABLET PO SCH (08:27)
[2022-11-12] MEDS: ASPIRIN EC 81 MG TAB PO SCH (08:27)
[2022-11-12] MEDS: CLOPIDOGREL 75 MG TABLET PO SCH (08:27)
[2022-11-12] MEDS: LOSARTAN POTASSIUM 50 MG TABLET PO SCH (08:27)
[2022-11-12] MEDS: DILTIAZEM HCL 120 MG SR CAP PO SCH (08:27)
[2022-11-12] MEDS: predniSONE 20 MG TAB PO SCH (08:27)
--- NOTE | 2022-11-12 09:52 | P.PN ---
Subjective Date of Service: 11/12/22 Chief Complaint: Shortness of breath Subjective: No new changes, Improving Physical Examination - Vital Signs Temperature: 96.9 F Blood Pressure: 186/73 Pulse: 62 Respirations: 16 Pulse Ox (%): 93 - Physical Exam General: Alert, Oriented x3 HEENT: Atraumatic, Normocephalic Neck: Supple Respiratory: Normal air movement Cardiovascular: Regular rate/rhythm, Normal S1 S2 Assessment And Plan - Plan Rapid A-fib: Presently bedside rate controlled. We will continue diltiazem and carvedilol COPD exacerbation: We will continue breathing treatment, steroid, antibiotic therapy. still needing oxygen supplementation. CHF: We will continue diuretic therapy. Coronary disease: We will continue statin and antiplatelet drugs. Disposition: Pending review by cardiology, pulmonary.
[2022-11-12 13:19] VITALS: BP 186/73; TEMP 96.9
[2022-11-12] MEDS: BENZONATATE 100 MG CAP PO PRN (13:53)
[2022-11-12 15:38] VITALS: O2SAT 94
--- NOTE | 2022-11-12 16:09 | P.DS ---
Admission Date: 11/05/22 Discharge Date: 11/12/22 Disposition: ROUTINE DISCHARGE Discharge Condition: GOOD Reason for Admission: Shortness of breath Brief History of Present Illness: 77 y o female pt with hx of A fib, HTN, COPD on home oxygen who was admitted for episode of a fib rvr and copd exacerbation. She was also started on rate control medication and anticoagulation with Eliquis. She was admitted for inpatient care. Hospital Course: She was admitted for inpatient care and started on rate control medication and breathing treatment for COPD exacerbation. She also had diuretic dose given for management of volume overload related to CHF. Over the course of hospital stay she stabilized. Oxygen requirement continued to be persistent and she was worked up for home oxygen continuation. Heart rate control improved significantly and she was followed by pulmonary and cardiology physicians. She was deemed stable for discharge and to continue with anticoagulation with Eliquis, rate control medication and inhalational therapy for COPD management as per home prescription. She will follow-up with pulmonary physician and cardiology as scheduled outpatient. Vital Signs/Physical Exam: Temp Pulse Resp BP Pulse Ox 96.9 F 62 16 186/73 H 93 11/12/22 13:19 11/12/22 13:19 11/12/22 13:19 11/12/22 13:19 11/12/22 13:19 General: Alert HEENT: Atraumatic, Normocephalic Neck: Supple Respiratory: Normal air movement Cardiovascular: Regular rate/rhythm, Normal S1 S2 Gastrointestinal: Soft and benign Musculoskeletal: No swelling Neurological: Normal speech Laboratory Data at Discharge: WBC 6.60 thou/uL (4.3-10.9) 11/09/22 07:17 Hgb 13.7 g/dL (12.0-15.0) 11/09/22 07:17 Hct 40.7 % (36.0-45.0) 11/09/22 07:17 Plt Count 131 thou/uL (152-406) L 11/09/22 07:17 PT 11.8 SECONDS (9.5-12.5) 11/06/22 05:48 INR 1.07 11/06/22 05:48 APTT 24.7 SECONDS (24.3-36.9) 11/06/22 05:48 Sodium 138 mEq/L (136-145) 11/09/22 07:17 Potassium 4.5 mEq/L (3.5-5.1) 11/09/22 07:17 BUN 65 mg/dL (7-18) H 11/09/22 07:17 Creatinine 1.06 mg/dL (0.55-1.02) H 11/09/22 07:17 Glucose 187 mg/dL (74-106) H 11/09/22 07:17 Magnesium 2.3 mg/dL (1.6-2.4) 11/09/22 07:17 Total Bilirubin 0.5 mg/dL (0.2-1.0) 11/06/22 05:48 AST 9 U/L (15-37) L 11/06/22 05:48 ALT 26 U/L (13-56) 11/06/22 05:48 Alkaline Phosphatase 68 U/L (45-117) 11/06/22 05:48 Triglycerides 91 mg/dL (<150) 11/06/22 05:48 Cholesterol 136 mg/dL (<200) 11/06/22 05:48 HDL Cholesterol 31 mg/dL (40-60) L 11/06/22 05:48 Cholesterol/HDL Ratio 4.39 11/06/22 05:48 Home Medications: Amlodipine Besylate/Benazepril [Lotrel 10-20 mg Capsule] 5 - 20 mg PO DAILY 03/28/18 Aspirin [Aspir-Low] 81 mg PO DAILY 03/28/18 Carvedilol [Coreg] 12.5 mg PO DAILY 03/28/18 Clopidogrel Bisulfate [Plavix] 75 mg PO DAILY 03/28/18 Apixaban [Eliquis] 5 mg PO BID 30 Days #60 11/10/22 Apixaban [Eliquis] 5 mg PO BID 30 Days #60 tablet 11/10/22 Fluticasone/Umeclidin/Vilanter [Trelegy Ellipta 100-62.5-25] 1 each IH DAILY 30 Days #30 aero 11/10/22 predniSONE [Prednisone*] 10 mg PO BID #20 tab 11/10/22 New Medications: Apixaban [Eliquis] 5 mg PO BID 30 Days #60 Apixaban [Eliquis] 5 mg PO BID 30 Days #60 tablet predniSONE [Prednisone*] 10 mg PO BID #20 tab Fluticasone/Umeclidin/Vilanter [Trelegy Ellipta 100-62.5-25] 1 each IH DAILY 30 Days #30 aero Diet: AHA Activity: Fall precautions Followup: Zeus Malik MD [ACTIVE - CAN ADMIT] - (call for an apointment for next week) NONE,NONE [Primary Care Provider] -
== END 2022-11-12 17:30 | disposition home or self-care (01) | DRG 291 ==
LOC: ER 12:55 → ERHOLD 17:28 → 2ND 19:38
PROVIDERS: ADMIT Hospitalist; ATTEND Internal Medicine Nephrology
DX: I11.0 Hypertensive heart disease with heart failure (principal); I50.33 Acute on chronic diastolic (congestive) heart failure; J96.22 Acute and chronic respiratory failure with hypercapnia; I48.20 Chronic atrial fibrillation, unspecified; J44.1 Chronic obstructive pulmonary disease with (acute) exacerbation; D69.6 Thrombocytopenia, unspecified; I25.10 Atherosclerotic heart disease of native coronary artery without angina pectoris; F17.210 Nicotine dependence, cigarettes, uncomplicated; Z88.0 Allergy status to penicillin; Z88.1 Allergy status to other antibiotic agents; Z71.6 Tobacco abuse counseling; Z79.82 Long term (current) use of aspirin; Z79.01 Long term (current) use of anticoagulants; Z99.81 Dependence on supplemental oxygen; Z79.52 Long term (current) use of systemic steroids; Z79.02 Long term (current) use of antithrombotics/antiplatelets; Z79.899 Other long term (current) drug therapy
CPT/HCPCS: 36415; 71045; 71275; 80048; 80053; 80061; 80076; 82805; 82947; 83605; 83735; 83880; 84484; 85025; 85610; 85730; 87040; 87804; 87811; 93005; 93306; 94640; 94660; 94760; 96365; 96375; 97110; 97161; 97165; 97530; 99285; J1100; J1815; J1940; J2270; J7030; J7512; J7613; J7614; J7634; J7644; Q9967

== ENCOUNTER 2022-12-14 17:57 | Observation (INO) | payer OTHER ==
--- OUTSIDE RECORDS SUMMARY | 2022-12-14 18:03 | XMS REPORT | Continuity of Care Document ---
:1945 Author Organization [facility] t Address [address] [place] [address] Care Team Providers Name Role Phone Brannon Marie MD Primary Care Physician DOSESOSA BONILLA Attending Clinician Unavailable Sosa Mendieta Attending Clinician JCARLOS GUERRERO Attending Clinician Unavailable Nadia-Joaquíno_A_AH Attending Clinician Unavailable Buzz Pak MD Attending Clinician [phone] Malcolm Pinto CRNA Attending Clinician Doctor Unassigned, Campus Attending Clinician Unavailable Pob, Adc Lab Main Attending Clinician Unavailable Ken Attending Clinician Unavailable RHYS VASQUEZ Admitting Clinician Unavailable Rhys Vasquez Admitting Clinician Nadia-Mbayo_A_AH Admitting Clinician Unavailable Buzz Pak MD Admitting Clinician [phone] Ken Admitting Clinician Unavailable Payers Payer Name Policy Type Policy Number Effective Date Expiration Date S kermitema WELLCARE/WELLCARE [id number] 2021 [employer] 00:00:00 [facility] [place] [facility] [place] [id number] 2019 [employer] (MEDICARE 00:00:00 REPLACEMENT/ADVANTA GE - HMO) WELLCARE [id number] 2019 HEALTHPLANS 00:00:00 (MEDICARE REPLACEMENT HMO) Problems Condition Condition Condition Status Onset Resolution Last Treating Co mments Source Name Details Category Date Date Treatment Clinician Date SANDRA FLORES Diagnosis Active 2022-11-20 Memoria BILLING BILLING 11-20 23:36:00 l Active 00:00: Wu 11/20/2022 00 [facility] UNRESPONSI UNRESPONS Diagnosis Active 2022-11-20 Memoria VE(78Y.O.) MAGGIE(78Y.O. 11-20 23:33:00 l ) Active 00:00: [place] 11/20/2022 00 [facility] PNA PNA Diagnosis Active 2022-12-01 Mem oria Active 11-20 21:52:00 l 11/20/2022 00:00: Bruno mendoza [address] Carotid Carotid Disease Active Methodi stenosis, stenosis, 1-24 st left left 00:00: Hospita 00 l Stenosis Stenosis Disease Active 2017-06 Overview: Me thodi of left of left 2-[address] carotid carotid 00:00: g of this Hospi ta artery artery 00 note l might be different from the original. Added automatic ally from request for surgery [id number] No known No known Disease Unive rs active active ity of problems problems [facility] Injury of Injury of Problem Active 2022-12-01 Memoria kidney kidney 05:18:48 l (disorder) (disorder) He rmann Active Problem 12/01/2022 [facility] Myocardial Myocardia Problem Active 2022-12-01 Memoria infarction l 05:18:48 l (disorder) infarction He rmraina (disorder) Active Problem 12/01/2022 [facility] Physical Physical Problem Active 2022-12-01 Memoria deconditio deconditio 05:18:48 l hao Washburn (finding) (finding) Active Problem 12/01/2022 [facility] PNEUMONIA, PNEUMONIA Diagnosis Active 2022-12-01 Memoria UNSPECIFIE , 21:52:00 l D ORGANISM UNSPECIFIE He banner D ORGANISM Active [facility] Coronary Coronary Problem Active 2022-12-01 Memoria arterioscl arterioscl 05:18:48 l erosis erosgary Washburn (disorder) (disorder) Active Problem 12/01/2022 [facility] Hyperkalem Problem Active 2022-12-01 M alison ia Hyperkalem 05:18:48 l (disorder) ia Bruno n (disorder) Active Problem 12/01/2022 [facility] Allergies, Adverse Reactions, Alerts Allergy [...] Hospita reaction 00 l s to drug sulfa sulfa [facility] drugs drugs [facility] Family History Family Member Diagnosis Comments Start Date Stop Date Source Natural mother Heart disease [facility] Natural mother Stroke [facility] Social History Social Habit Start Date Stop Date Quantity Comments Source History of tobacco Cigarette Smoker [facility] Gender identity [facility] Sexual orientation [facility] History [facility] Alcohol Std Drinks Hospit al History [facility] Alcohol Binge Hospital History of Social 2019-01-26 2019-01-[address] function 00:00:00 00:00:00 Hospital Alcohol intake 2018-07-08 2018-07-08 Current [facility] 00:00:00 00:00:00 non-drinker of Hospital alcohol (finding) History [facility] 2018-07-04 2018-07-04 1 [facility] Alcohol Frequency 00:00:00 00:00:00 Hospita l Alcohol Comment 2018-05-28 2018-05-28 social [facility] 00:00:00 00:00:00 Hospital Cigarettes smoked 2018-05-28 2018-05-[address] current (pack per 00:00:00 00:00:00 Hospita l day) - Reported Cigarette 2018-05-28 2018-05-28 [facility] pack-years 00:00:00 00:00:00 Hospital Tobacco use and 2018-05-28 2018-05-28 Smokeless [facility] exposure 00:00:00 00:00:00 tobacco non-user Hospital Sex Assigned At [birth year] [facility] 00:00:00 00:00:00 Hospital Smoking Status Start Date Stop Date Source Tobacco smoking status Rodney Washburn Current every day smoker 2019-07-16 00:00:00 [facility] Medications Ordered Filled Start Stop Current Ordering Indication Dosage Frequency Signature Comments Components Source Medication Medication Date Date Medication? Clinician (SIG) Name Name Keon Yes 3 ml, Memoria inhalation 6-20 INHALATION l solution 16:55: , QID, # Kimmy nn 00 360 mL, 4 Refill(s), Pharmacy: [facility] STORE #[id number], 165.1, cm, 11/22/22 9:03:00 CDT, Height, 82.1, kg, 11/21/22 15:17:00 CDT, Weight Lasix 40 mg Yes 40 mg = 1 M emoria oral tablet 6-20 tab, PO, l 16:45: Daily, # [place] 00 30 tab, 0 Refill(s), Pharmacy: [facility] STORE #[id number], 165.1, cm, 11/22/22 9:03:00 CDT, Height, 82.1, kg, 11/21/22 15:17:00 CDT, Weight lisinopril 0 Yes 20 mg = 1 Me moria 20 mg oral 6-20 tab, PO, l tablet 16:45: Daily, # [place] 00 30 tab, 3 Refill(s), Pharmacy: [facility] STORE #[id number], 165.1, cm, 11/22/22 9:03:00 CDT, Height, 82.1, kg, 11/21/22 15:17:00 CDT, Weight atorvastati Yes 80 mg = 1 M emoria n 80 mg 6-20 tab, PO, l oral tablet 16:44: Bedtime, # Wu 00 30 tab, 2 Refill(s), Pharmacy: [facility] STORE #[id number], 165.1, cm, 11/22/22 9:03:00 CDT, Height, 82.1, kg, 11/21/22 15:17:00 CDT, Weight aspirin 81 2022-0 Yes 81 mg = 1 Me moria mg tablet, 6-20 tab, PO, l enteric 16:43: Daily, # Bruno n coated 00 30 tab, 0 Refill(s), Pharmacy: [facility] STORE #[id number], 165.1, cm, 11/22/22 9:03:00 CDT, Height, 82.1, kg, 11/21/22 15:17:00 CDT, Weight carvedilol 2022-0 Yes 25 mg = 1 Me moria 25 mg oral 6-20 tab, PO, l tablet 16:43: Q12H, # 60 Kimmy nn 00 tab, 3 Refill(s), Pharmacy: [facility] STORE #[id number], 165.1, cm, 11/22/22 9:03:00 CDT, Height, 82.1, kg, 11/21/22 15:17:00 CDT, Weight Trelegy 0 Yes = 1 puff, Memor ia Ellipta 100 6-20 INHALATION l mcg-62.5 16:30: , Daily, # Her yanez mcg-25 00 60 mcg/inh blister, 3 inhalation Refill(s), powder Pharmacy: [facility] STORE #[id number], 165.1, cm, 11/22/22 9:03:00 CDT, Height, 82.1, kg, 11/21/22 15:17:00 CDT, Weight Eliquis 5 2022-0 Yes 5 mg = 1 Cali sanchez mg oral 6-20 tab, PO, l tablet 16:30: BID, # 60 Bruno n 00 tab, 3 Refill(s), Pharmacy: [facility] STORE #[id number], 165.1, cm, 11/22/22 9:03:00 CDT, Height, 82.1, kg, 11/21/22 15:17:00 CDT, Weight carvediloL 2020-0 Yes 12.5mg Take 12.5 Univers (COREG) 2-05 mg by ity of 12.5 mg 19:50: mouth 2 [place] tablet 10 (two) Medical times Branch daily with meals. clopidogreL 2019-0 Yes 75mg Take 75 mg Univers (PLAVIX) 75 2-05 by mouth ity of mg tablet 19:50: daily. [address] Branch amLODIPine- 2020-0 Yes 1{capsu Take [...] mouth ity of mg tablet 19:50: daily. [address] Branch amLODIPine- 2020-0 Yes 1{capsu Take [...] mouth ity of mg tablet 19:50: daily. [place] 10 Medical Branch amLODIPine- 2020-0 Yes 1{capsu Take [...] No ONCE INTRA Univers ne sod phos 07-16 PROCEDURE, i ty of PF 17:49: 20:24 Starting [place] injection 00 :42 Sun07/16/19 Medi dave at 1149, Branch Until 07/21/19 at 1424, Routine, Intra-op ropivacaine 2020-0 2020- No ONCE INTRA Univers 0.5 % 07-16 PROCEDURE, ity of (NAROPIN 17:49: 20:24 Starting [place] (PF)) 00 :21 Sun07/16/19 Medical injection at 1149, Branch Until 07/21/19 at 1424, Routine, Intra-op HYDROmorpho 2020-0 Yes .5mg 0.5 mg, Uni vers ne 2-05 Slow IV ity of (DILAUDID) 17:22: Push, [place] injection 00 Q15MIN Medical 0.5 mg PRN, 4 Branch doses, Starting Sun07/16/19 at 1122, Until Discontinu ed, Routine, Pain (scale 7-10), 0.5mg IV every 15min PRN for severe Pain up to a total of 2mg IV, PACU
Us e approved by (Faculty): ADC PROVIDER FENTanyl PF 2019- Yes 25ug 25 mcg, Uni vers (SUBLIMAZE 2-05 Slow IV ity of (PF)) 17:22: Push, [place] injection 00 Q5MIN PRN, Medi dave 25 mcg 4 doses, Branch Starting 07/16/19 at 1122, Until Discontinu ed, Routine, Pain (scale 4-6), PACU ondansetron 2019- Yes 4mg 4 mg, Slow Univers (ZOFRAN 2-05 IV Push, ity of (PF)) 17:22: PRN, 1 [place] injection 4 00 dose, Medical mg Starting Branch 07/16/19 at 1122, Until Discontinu ed, Routine, Nausea and Vomiting (N/V), PACU acetaminoph 2019- 2020- No IV Unive rs en ADULT 205 02-05 Infusion, ity o f (OFIRMEV) 16:09: 17:06 Administer [place] injection 00 :48 over 15 Medical Minutes, Branch ONCE INTRA PROCEDURE, Starting 07/16/19 at 1009, Until 07/16/19 at 1106, Routine, Intra-op FENTanyl PF 2019-0 2020- No Intravenou Univers (SUBLIMAZE 2-05 02-05 s, ONCE ity o f (PF)) 16:03: 17:06 INTRA [place] injection 00 :48 PROCEDURE, Medi dave Starting Branch 07/16/19 at 1003, Until 07/16/19 at 1106, Routine, Intra-op propofol IV 2019-0 2020- No Intravenou Univers infusion 2-05 02-05 s, ONCE ity of 16:03: 17:06 INTRA [place] 00 :48 PROCEDURE, Medical Starting Branch 07/16/19 at 1003, Until 07/16/19 at 1106, Routine, Intra-op lidocaine 2019-0 2020- No ONCE INTRA U nivers 1% 2 02-05 PROCEDURE, ity of (XYLOCAINE) 16:03: 17:06 Starting [place] 100 mg/10 00 :48 07/16/19 Medi dave mL (1 %) at 1003, Branch injection Until 07/16/19 at 1106, Routine, Intra-op midazolam 2020-0 2020- No IV Push, Uni vers (VERSED) 2-05 ONCE INTRA ity of injection 15:54: 17:06 PROCEDURE, [place] 00 :48 Starting Medical 07/16/19 Branch at 0954, Until 07/16/19 at 1106, Routine, Intra-op lactated 2020-0 2020- No IV Univers ringers IV 07-16-05 Infusion, ity of infusion 15:11: 17:06 CONTINUOUS [place] 00 :48 PRN, Medical Starting Branch 07/16/19 at 0911, Until 07/16/19 at 1106, Routine, Intra-op lactated 2020-0 2020- No 1000mL at 20 Unive rs ringers IV 2-05 mL/hr, ity of infusion 15:00: 15:11 1,000 mL, Shekhar as 1,000 mL 00 :00 IV Medical Infusion, Branch ONCE, 1 dose, Sun07/16/19 at 0900, Routine, DSU Pre-op ALPRAZolam 2020-0 Yes .25mg Take 0.25 U nivers (XANAX) 2-03 mg by ity of 0.25 mg 15:17: mouth at [place] tablet 23 bedtime. Medical Branch traMADol 50 2019-0 Yes 50mg Take 50 mg Univers mg [...] mouth ity of mg tablet 15:17: daily. [place] 22 Medical Branch amLODIPine- 2020-0 Yes 1{capsu Take 1 U nivers benazepriL 2-03 le} capsule by ity of 5-20 mg per 15:17: mouth [place] capsule 22 daily. Medical Branch amlodipine- 20190 Yes 1{capsu QD Take 1 M ethodi benazepril 1-25 le} capsule by st (LOTREL) 13:54: mouth Hospita 10-20 mg 32 daily. l per capsule clopidogrel 2019-0 Yes 75mg QD Take 75 mg Methodi [...] l times a day with meals. ALPRAZolam 20190 Yes .25mg Take 0.25 M ethodi (XANAX) 1-[address] 0.25 MG 13:54: mouth as Hospit a tablet 32 needed for l anxiety. albuterol Yes 2{puff} Q6H Inhale 2 M ethodi (PROVENTIL 1-[address] HFA;VENTOLI 13:54: every 6 Hos tanja N HFA) 90 32 (six) l mcg/actuati hours as on inhaler needed for wheezing. amlodipine- Yes 1{capsu QD Take 1 M ethodi benazepril 1-25 le} capsule by st (LOTREL) 13:54: mouth Hospita 10-20 mg 32 daily. l per capsule clopidogrel 2019-0 Yes 75mg QD Take 75 mg Methodi [...] l times a day with meals. ALPRAZolam 2019 Yes .25mg Take 0.25 M ethodi (XANAX) 1-[address] 0.25 MG 13:54: mouth as Hospit a tablet 32 needed for l anxiety. albuterol Yes 2{puff} Q6H Inhale 2 M ethodi (PROVENTIL 1-[address] HFA;VENTOLI 13:54: every 6 Hos tanja N HFA) 90 32 (six) l mcg/actuati hours as on inhaler needed for wheezing. amlodipine- Yes 1{capsu QD Take 1 M ethodi benazepril 1-25 le} capsule by st (LOTREL) 13:54: mouth Hospita 10-20 mg 32 daily. l per capsule clopidogrel Yes 75mg QD Take 75 mg Methodi (PLAVIX) 75 1-[address] mg tablet 13:54: daily. Hospit a 32 l pravastatin Yes 10mg QD Take 10 mg Methodi (PRAVACHOL) 1-[address] 10 MG 13:54: nightly. Hospita tablet 32 l carvedilol Yes 12.5mg Q.5D Take 12.5 Methodi (COREG) 1-[address] 12.5 MG 13:54: mouth 2 Hospita tablet 32 (two) l times a day with meals. ALPRAZolam Yes .25mg Take 0.25 M ethodi (XANAX) 1-[address] 0.25 MG 13:54: mouth as Hospit a tablet 32 needed for l anxiety. albuterol Yes 2{puff} Q6H Inhale 2 M ethodi (PROVENTIL 1-[address] HFA;VENTOLI 13:54: every 6 Hos tanja N HFA) 90 32 (six) l mcg/actuati hours as on inhaler needed for wheezing. No known No Univers medications [facility] Immunizations Ordered Immunization Filled Immunization Date Status Commen ts Source Name Name Pneumococcal 2018-07-05 Completed [facility] Conjugate [facility] 00:00:00 Hospi josh FLUCELVAX QUAD PF 2018-07-[address] 00:00:00 Hospital Pneumococcal 2018-07-05 Completed [facility] Conjugate 13-[facility]ent 00:00:00 Hospi josh FLUCELVAX QUAD PF 2018-07-[address] 00:00:00 Hospital Pneumococcal 2018-07-05 Completed [facility] Conjugate 13-[facility]ent 00:00:00 Hospi josh FLUCELVAX QUAD PF 2018-07-[address] 00:00:00 Hospital Vital Signs Vital Name Observation Time Observation Value Comments Source Systolic blood 2019-07-16 18:07:00 143 mm[Hg] Univer sity of pressure [facility] Diastolic blood 2019-07-16 18:07:00 71 mm[Hg] Unive rsity of pressure [facility] Heart rate 2019-07-16 18:07:00 81 /min Universi ty of [facility] Body temperature 2019-07-16 18:07:00 36.83 Marni Univ ersity of [facility] Branch Respiratory rate 2019-07-16 18:07:00 18 /min Univ ersity of [facility] Oxygen saturation in 2019-07-16 18:07:00 95 /min University of Arterial blood by [place] [employer] dave Pulse oximetry Branch Body height 2019-07-14 15:00:00 165.1 cm Universi ty of [place] [facility] [place] Body weight 2019-07-14 15:00:00 74.844 kg Universi ty of [place] [facility] BMI 2019-07-14 15:00:00 27.46 kg/m2 Universi ty of [facility] Branch Systolic blood 2019-07-16 18:07:00 143 mm[Hg] Univer sity of pressure [facility] Diastolic blood 2019-07-16 18:07:00 71 mm[Hg] Unive rsity of pressure [facility] Heart rate 2019-07-16 18:07:00 81 /min Universi ty of [place] [facility] Body temperature 2019-07-16 18:07:00 36.83 Marni Univ ersity of [place] [facility] Respiratory rate 2019-07-16 18:07:00 18 /min Univ ersity of [place] [facility] Oxygen saturation in 2019-07-16 18:07:00 95 /min University of Arterial blood by [place] [employer] dave Pulse oximetry Branch Body height 2019-07-14 15:00:00 165.1 cm Universi ty of [place] [facility] [place] Body weight 2019-07-14 15:00:00 74.844 kg Universi ty of [place] [facility] BMI 2019-07-14 15:00:00 27.46 kg/m2 [facility] Heart Rate 2022-11-28 16:17:06 [facility] [place] Systolic (mm Hg) 2022-11-28 16:16:59 Cali rial Wu Diastolic (mm Hg) 2022-11-28 16:16:59 Mem orial Wu Temperature Oral (F) 2022-11-28 16:16:13 97.7 F [facility] [place] Temperature Oral (F) 2022-11-26 01:16:00 97.5 F [facility] [place] Height 2022-11-22 14:03:00 165.1 cm [facility] [place] Height 2022-11-21 20:17:00 5 [ft_i] [facility] [place] Weight 2022-11-21 20:17:00 [facility] [place] BMI Calculated 2022-11-21 20:17:00 Slimori al [place] Temperature Oral (F) 2022-11-21 03:23:00 99.7 F [facility] [place] Procedures Procedure Date / Time Performing Clinician Source Performed NERVE BLOCK 2019-07-21 20:25:20 Demetrius Yu [facility] FL TIME OR 2019-07-16 16:53:29 Mellisa [facility] (NON-REPORTABLE) [facility] INTUBATION 2019-07-16 16:07:50 Demetrius Yu [facility] DAY SURGERY - ADC 2019-07-16 06:01:00 Doctor Unassigned, [facility] INSURANCE CORRESPONDENCE 2019-07-09 06:01:00 Doctor Lodnon, [facility] Plan of Care Planned Activity Planned Date Details Comments Source Future Scheduled 2022-11-30 [facility] Test 11:08:16 malignant neoplasm of colon (procedure) [code = 849608408] Future Scheduled 2022-11-30 [facility] Test 11:08:16 malignant neoplasm of colon (procedure) [code = 928118091] Future Scheduled 2022-11-30 [facility] Test 11:08:16 malignant neoplasm of colon (procedure) [code = 778738653] Future Scheduled 2022-11-30 COVID-19 VACCINE (#1) [facility] Test 11:08:16 [code = COVID-19 VACCINE (#1)] Future Scheduled 2022-11-30 BREAST CANCER [facility] Test 11:08:16 SCREENING [code = BREAST CANCER SCREENING] Future Scheduled 2022-11-30 Screening for [facility] Test 11:08:16 malignant neoplasm of colon (procedure) [code = 747087582] Future Scheduled 2022-11-30 Screening for [facility] Test 11:08:16 malignant neoplasm of colon (procedure) [code = 807955546] Future Scheduled 2022-11-30 SHINGLES VACCINES (1 Met [facility] Test 11:08:16 of 2) [code = SHINGLES VACCINES (1 of 2)] Future Scheduled 2022-11-30 65+ PNEUMOCOCCAL [facility] Test 11:08:16 VACCINE (2 - PPSV23 if available, else PCV20) [code = 65+ PNEUMOCOCCAL VACCINE (2 - PPSV23 if available, else PCV20)] Future Scheduled 2022-11-30 INFLUENZA VACCINE [facility] Test 11:08:16 [code = INFLUENZA VACCINE] Future Scheduled 2022-09-14 COVID-19 VACCINE (#1) [facility] Test 16:45:37 [code = COVID-19 VACCINE (#1)] Future Scheduled 2022-09-14 BREAST CANCER [facility] Test 16:45:37 SCREENING [code = BREAST CANCER SCREENING] Future Scheduled 2022-09-[address] [facility] Test 16:45:37 [code = COLONOSCOPY SCREENING] Future Scheduled 2022-09-14 SHINGLES VACCINES (1 Met [facility] Test 16:45:37 of 2) [code = SHINGLES VACCINES (1 of 2)] Future Scheduled 2022-09-14 65+ [facility] 16:45:37 VACCINE (2 - PPSV23 if available, else PCV20) [code = 65+ PNEUMOCOCCAL VACCINE (2 - PPSV23 if available, else PCV20)] Future Scheduled 2022-09-14 INFLUENZA VACCINE [facility] Test 16:45:37 [code = INFLUENZA VACCINE] Future Scheduled 2022-09-14 COVID-19 VACCINE (#1) [facility] Test 16:45:37 [code = COVID-19 VACCINE (#1)] Future Scheduled 2022-09-14 BREAST CANCER [facility] Test 16:45:37 SCREENING [code = BREAST CANCER SCREENING] Future Scheduled 2022-09-[address] [facility] Test 16:45:37 [code = COLONOSCOPY SCREENING] Future Scheduled 2022-09-14 SHINGLES VACCINES (1 Met [facility] Test 16:45:37 of 2) [code = SHINGLES VACCINES (1 of 2)] Future Scheduled 2022-09-14 65+ PNEUMOCOCCAL [facility] Hospital Test 16:45:37 VACCINE (2 - PPSV23 if available, else PCV20) [code = 65+ PNEUMOCOCCAL VACCINE (2 - PPSV23 if available, else PCV20)] Future Scheduled 2022-09-14 INFLUENZA VACCINE Method ist Hospital Test 16:45:37 [code = INFLUENZA VACCINE] Encounters Start End Encounter Admission Attending Care Care Encounter Source Date/Time Date/Time Type Type Clinicians Facility Department ID 2022-11-22 Outpatient [facility] [id number] [place] 15:08:18 [id number] [facility] 2022-11-21 2022-11-28 Inpatient [facility] [id number] Memoria 03:11:00 23:45:[address] 2022-11-21 2022-11-28 Inpatient E DOSEKUN, [facility] PUL [id number] [facility] 01:25:00 18:45:00 AKINSANSCHIVO 2022-11-20 2022-11-28 Outpatient Dosekun, [facility] [id number] 22:11:00 18:45:00 [facility] 2022-11-20 2022-11-20 Outpatient YOLANDA, [facility] SURI [id number] [facility] 00:00:00 23:59:00 JCARLOS 2019-07-30 2019-07-30 Outpatient Nadia-Mbayo VFP VFP [id number] [facility] 07:12:00 07:12:00 _A_AH 10145 Family Practic e 2019-07-30 2019-07-30 Outpatient Nadia-Mbayo VFP VFP 792 [facility] 07:12:00 07:12:00 _A_AH [id number] Family Practic e 2019-07-16 2019-07-16 [facility] [id number] [facility] 08:53:00 12:40:00 Encounter Buzz Chambers [id number] ity [place] [id number] [facility] 071 [place] 2019-07-16 2019-07-16 [facility] [id number] 08:53:00 12:40:00 Encounter Buzz Saroj Trish [id number] [place] 4.2.7.2.686 Surgical [id number] [place] [address] 2019-07-16 2019-07-16 Anesthesia [facility] [id number] Univers 09:57:00 11:06:00 Malcolm Chambers [id number] i ty of [place] [id number] [facility] 020 [place] 2019-07-16 2019-07-16 Anesthesia [facility] [id number] 09:57:00 11:06:00 Malcolm Chambers [id number] [place] 4.2.7.2.686 Surgical [id number] [place] [address] 2019-07-16 2019-07-16 Orders Doctor DRUMMOND [id number] Univers 00:00:00 00:00:00 Only Unassigned, GHANSHYAM [id number] ity of Campus HOSPITAL 4.2.7.2.686 Shekhar as [id number] [address] 2019-07-16 2019-07-16 Orders Doctor DRUMMOND [id number] 00:00:00 00:00:00 Only Unassigned, GHANSHYAM 350.1.13.10 Campus HOSPITAL 4.2.7.2.686 [id number] 009 2019-07-14 2019-07-14 Attraction Attendant Thang, Adc Lab Main [facility] 1.2.8 40.114 [id number] [facility] 10:55:00 11:10:00 Visit Buzz Pak Saroj Trish 350.1. 13.10 ity [place] Professio [id number] Oh dical nal 353 [facility] 2019-07-14 2019-07-14 Attraction Attendant Dayanna Desir [facility] [id number] 10:55:00 11:10:00 Visit Lab Main Trish [id number] [place] 4.2.7.2.686 Professio [id number] [address] 2019-07-09 2019-07-09 Orders Doctor BHANU [id number] Univers 00:00:00 00:00:00 Only Unassigned, GHANSHYAM [id number] ity of Campus HOSPITAL 4.2.7.2.686 Shekhar as [id number] [address] 2019-07-09 2019-07-09 Orders Doctor BHANU [id number] 00:00:00 00:00:00 Only Unassigned, GHANSHYAM 350.1.13.10 Campus HOSPITAL 4.2.7.2.686 [id number] [facility] 2019-07-02 2019-07-02 Outpatient [facility] [address] [place] 05:10:00 05:10:00 0122 Medical Group Results Test Description Test Time Test Comments Results Result Comments Source CHEMISTRY 2022-11-28 09:29:00 Test Item Value Reference Range Interpretation Comme nts Magnesium Lvl (test code = Magnesium Lvl) 1.7 1.8-2.4 [id number] 09:29:00 Test Item Value Reference Range Interpretation Comments Phosphorus (test code = Phosphorus) 2.5 2.5-4.5 [id number] 09:29:00 Test Item Value Reference Range Interpretation Comments Glucose Lvl (test code = Glucose Lvl) 93 70-99 [id number] 09:29:00 Test Item Value Reference Range Interpretation Comments BUN (test code = BUN) 36 7-22 [id number] 09:29:00 Test Item Value Reference Range Interpretation Comments Creatinine Lvl (test code = Creatinine 0.98 0.50-1.40 Lvl) [id number] 09:29:00 Test Item Value Reference Range Interpretation Comments Sodium Lvl (test code = Sodium Lvl) 143 135-145 [facility]aleGfmylwaBUMTQGYTH6614-90-02 09:29:00 Test Item Value Reference Range Interpretation Comments Potassium Lvl (test code = Potassium 4.0 3.5-5.1 Lvl) [facility]valeMuuocajLAYKORJSZ4192-20-00 09:29:00 Test Item Value Reference Range Interpretation Comments Chloride Lvl (test code = Chloride Lvl) 106 95-109 [facility]valeSaueyfnKQQIFEAKS4932-41-05 09:29:00 Test Item Value Reference Range Interpretation Comments CO2 (test code = CO2) 32 24-32 [facility]aleSccltuqDRQZEWDEJ6890-38-34 09:29:00 Test Item Value Reference Range Interpretation Comments Calcium Lvl (test code = Calcium Lvl) 7.7 8.5-10.5 [facility]valeKvzohorVAWUELYYM7269-64-47 09:29:00 Test Item Value Reference Range Interpretation Comments AGAP (test code = AGAP) 9.0 10.0-20.0 [facility]valeNgxrrckJHXDSVDKF5929-92-07 09:29:00 Test Item Value Reference Range Interpretation Comments eGFR (test code = eGFR) 60 [facility]entonIwsybuaORPPZRDCXT2594-15-62 09:29:00 Test Item Value Reference Range Interpretation Comments WBC (test code = WBC) 4.3 3.7-10.4 [facility] DentonMciqggkRWCTKCYPFV2442-88-43 09:29:00 Test Item Value Reference Range Interpretation Comments RBC (test code = RBC) 3.10 4.20-5.40 [facility] DentonBmcvzjhRXBDDIUIYU2198-54-64 09:29:00 Test Item Value Reference Range Interpretation Comments Hgb (test code = Hgb) 9.4 12.0-16.0 [facility] DentonDnhoxpfFLJXQVIMBT6441-22-12 09:29:00 Test Item Value Reference Range Interpretation Comments Hct (test code = Hct) 28.4 36.0-48.0 [facility] DentonTjqunnsBHRIXWGPEG0026-17-65 09:29:00 Test Item Value Reference Range Interpretation Comments MCV (test code = MCV) 91.6 80.0-98.0 [facility] DentonWbbmzwkGSIIHKPQPN1959-44-08 09:29:00 Test Item Value Reference Range Interpretation Comments MCH (test code = MCH) 30.3 pg 27.0-31.0 [place] 467643-06-20 09:29:00 Test Item Value Reference Range Interpretation Comments MCHC (test code = MCHC) 33.0 32.0-36.0 [place] 467643-06-20 09:29:00 Test Item Value Reference Range Interpretation Comments RDW (test code = RDW) 15.3 11.5-14.5 [place] 467643-06-20 09:29:00 Test Item Value Reference Range Interpretation Comments Platelet (test code = Platelet) 119 133-450 [place] 467643-06-20 09:29:00 Test Item Value Reference Range Interpretation Comments MPV (test code = MPV) 8.8 7.4-10.4 [place] [address]-06-20 09:29:00 Test Item Value Reference Range Interpretation Comments Segs (test code = Segs) 76.1 45.0-75.0 [place] 467643-06-20 09:29:00 Test Item Value Reference Range Interpretation Comments Lymphocytes (test code = Lymphocytes) 12.5 20.0-40.0 [place] 467643-06-20 09:29:00 Test Item Value Reference Range Interpretation Comments Monocytes (test code = Monocytes) 10.4 2.0-12.0 [place] [address]-06-20 09:29:00 Test Item Value Reference Range Interpretation Comments Eosinophils (test code = 0.9 See_Comment [A utomated message] The Eosinophils) system which ge nerated this result tra nsmitted reference range : <=4.0. The reference r terra was not used to int erpret this result as normal/abnormal . [facility] DentonGujjqycNXVGNBNUFY0471-19-55 09:29:00 Test Item Value Reference Range Interpretation Comments Basophils (test code = 0.1 See_Comment [Aut omated message] The Basophils) system which ge nerated this result tra nsmitted reference range : <=1.0. The reference r terra was not used to int erpret this result as normal/abnormal . [place] 467643-06-20 09:29:00 Test Item Value Reference Range Interpretation Comments Neutrophils # (test code = Neutrophils 3.3 1.5-8.1 #) [place] 467643-06-20 09:29:00 Test Item Value Reference Range Interpretation Comments Lymphocytes # (test code = Lymphocytes 0.5 1.0-5.5 #) [facility] DentonUrrkaeyZVRTHJVVXA8544-19-38 09:29:00 Test Item Value Reference Range Interpretation Comments Monocytes # (test code 0.4 See_Comment [Aut omated message] The = Monocytes #) system which generated this result tra nsmitted reference range : <=0.8. The reference r terra was not used to int erpret this result as normal/abnormal . [place] 62241023-06-19 14:28:35 Test Item Value Reference Range Interpretation Comments RADRPT (test code EXAM: XR CHEST 1 VIEWDATE: = RADRPT) 11/26/2022 13:08Age: 77 years y/o FemaleINDICATION: - CHF, continued dyspneaCOMPARISON: November 22, 2022.TECHNIQUE: AP chest.IMPRESSION: Lines/tubes: Interval extubation. Enteric tube has been removed.Heart and mediastinum: The cardiomediastinal silhouette is stable. Aortic vascular wall calcifications are noted. Lungs: Bilateral lower zone opacities may represent atelectasis, aspiration, and/or infection.Pleura: Small bilateral pleural effusions are present. No pneumothorax is identified on this portable radiograph.Musculoskeletal: The regional skeleton is unchanged. [facility] DentonYpiivzcHFEKLGBVPF6374-13-05 09:11:00 Test Item Value Reference Range Interpretation Comments Eosinophils # (test code 0.1 See_Comment [A utomated message] The = Eosinophils #) system whic h generated this result tra nsmitted reference range : <=0.5. The reference r terra was not used to int erpret this result as normal/abnormal . [facility]aleYwtynzuVHIDPOEXC9020-92-56 23:34:00 Test Item Value Reference Range Interpretation Comments pH Cristóbal (test code = pH Cristóbal) 7.38 1 7.28-7.42 [facility]aleOhewqdiMBWQOMEHL0906-96-07 23:34:00 Test Item Value Reference Range Interpretation Comments pCO2 Cristóbal (test code = pCO2 Cristóbal) 50 38-52 [place] 587543-06-18 23:34:00 Test Item Value Reference Range Interpretation Comments pO2 Cristóbal (test code = pO2 Cristóbal) 51 20-49 [place] 587543-06-18 23:34:00 Test Item Value Reference Range Interpretation Comments HCO3 Cristóbal (test code = HCO3 Cristóbal) 30 22-26 [facility] AtlantaObizbzmPWWJFYHIG1981-13-58 23:34:00 Test Item Value Reference Range Interpretation Comments BE Cristóbal (test code = BE Cristóbal) 3 -2-2 [facility]aleUmmzkiiWFJJWYHUH1117-89-14 23:34:00 Test Item Value Reference Range Interpretation Comments O2 Sat Cristóbal (calc) (test code = O2 Sat 84.9 40.0-70.0 Cristóbal (calc)) [facility]valeFoejrejPFVPTQPRI1695-58-86 23:34:00 Test Item Value Reference Range Interpretation Comments Temp Cristóbal (test code = Temp Cristóbal) 37.0 [facility] AtlantaAqzeuunJDYSMBMEN8873-66-29 16:11:00 Test Item Value Reference Range Interpretation Comments Total Protein (test code = Total 5.0 6.4-8.4 Protein) [facility]aleDasnfpqXLMYNZWIH0075-85-42 16:11:00 Test Item Value Reference Range Interpretation Comments Albumin Lvl (test code = Albumin Lvl) 1.7 3.5-5.0 [facility] AtlantaCbgmipnOXYKXJPOA5573-33-73 16:11:00 Test Item Value Reference Range Interpretation Comments Globulin (test code = Globulin) 3.3 2.7-4.2 [facility] AtlantaAssfnebZFQUAJKPE1057-58-35 16:11:00 Test Item Value Reference Range Interpretation Comments A/G Ratio (test code = A/G Ratio) 0.5 1 0.7-1.6 [facility] AtlantaTefkckdBUDHTKIXH2888-47-40 16:11:00 Test Item Value Reference Range Interpretation Comments ALT (test code = ALT) 8 See_Comment [Auto mated message] The system which nerated this result transmit keo reference range : <=65. The reference range was not used to interpr et this result as maricruz l/abnormal. [facility] AtlantaDtobxbkCJKHBNDWN1846-75-09 16:11:00 Test Item Value Reference Range Interpretation Comments AST (test code = AST) 10 See_Comment [Auto mated message] The system which nerated this result transmit keo reference range : <=37. The reference range was not used to interpr et this result as maricruz l/abnormal. [facility] AtlantaUedhsqpRBELURUXW6708-09-75 16:11:00 Test Item Value Reference Range Interpretation Comments Alk Phos (test code = Alk Phos) 58 39-136 [place] [address]-06-18 16:11:00 Test Item Value Reference Range Interpretation Comments Bili Total (test code = Bili Total) 0.1 0.2-1.3 [place] [address]-06-18 16:11:00 Test Item Value Reference Range Interpretation Comments Bili Direct (test code no gt See_Comment [Aut omated message] The = Bili Direct) system which generated this result tra nsmitted reference range : <=0.3. The reference r terra was not used to int erpret this result as maricruz l/abnormal. [facility]aleAojsxzeMTIGBONPT2362-19-62 16:11:00 Test Item Value Reference Range Interpretation Comments Bili Indirect Unable to See_Comment [Automated (test code = Bili Calculate message] T he system Indirect) which generated this result transmitted reference range : <=1.0. The reference range was not used to interpret this result as normal/abnormal . [facility]2023-06-18 01:15:00 Test Item Value Reference Range Interpretation Comments Glucose POC (test code = Glucose POC) 178 70-99 [facility]aleJrndvenXHMIUZXVA9607-67-28 20:03:00 Test Item Value Reference Range Interpretation Comments HS Troponin I (test code = HS Troponin 348 I) [place] 147173-06-16 08:31:00 Test Item Value Reference Range Interpretation Comments Gluc POC Comment 1 (test code Notified RN/MD = Gluc POC Comment 1) [facility]valeFiarsyiUKDRFUMIP3285-97-43 05:17:00 Test Item Value Reference Range Interpretation Comments Ca Ion WB (test code = Ca Ion WB) 1.17 1.05-1.25 [facility]valeVllfgkeBXPVKNLJU1762-05-09 05:17:00 Test Item Value Reference Range Interpretation Comments Ca Ion at pH 7.4 WB (test code = Ca Ion 1.13 1.05-1.25 at pH 7.4 WB) [place] 62241023-06-15 14:30:08 Test Item Value Reference Range Interpretation Comments RADRPT (test code = EXAM: US RENAL WITH RADRPT) DOPPLERDATE: 11/22/2022 18:04 INDICATION: - ELIAS, h/o renal artery stenosis ADDITIONAL INFORMATION: None.COMPARISON: CT abdomen and pelvis 11/21/2022. TECHNIQUE: Multiplanar grayscale, color Doppler, and spectral Doppler ultrasound of the kidneys and urinary bladder. Exam quality limited by body habitus and overlying bowel gas.FINDINGS:Right kidney:Size: 10.3 x 5.0 x 6.5 cmCortical thickness: Normal.Hydronephrosis: None.Echogenicity: Normal.Calculi: None.Cysts/Masses: None.Left kidney: Difficult to evaluate because of body habitus and overlying gas.Size: 5.6 x 2.4 x 4.1 cmCortical thickness: Normal.Hydronephrosis: None.Echogenicity: Normal.Calculi: None.Cysts/Masses: There is an anechoic 1.9 x 2.0 x 1.9 cm well-circumscribed lesion representing a simple cyst.Bladder: Normal.Abdominal aorta: Visible portions are normal.Right Main Renal Artery: Patent. No elevated velocities.Right RA:Aorta Ratio: Normal. Right Intrarenal/Arcuate Arteries: Antegrade monophasic low resistive flow with rapid upstroke.Right Superior RI: 0.6 Right Middle RI: 0.6 Right Inferior RI: 0.8 Right Main Renal Veins: Patent.Free fluid: None.Other: None.IMPRESSION:1. Limited evaluation given overlying bowel gas.2. No renal Doppler/flow abnormalities involving the right kidney.3. Atrophic left kidney with small interpolar renal cyst. [facility]roeUaxlttkURXLXG1417-78-05 16:01:04 Test Item Value Reference Range Interpretation Comments RADRPT (test code EXAM: XR CHEST 1 VIEWDATE: = RADRPT) 11/22/2022 1:20 INDICATION: - Resp failure, ETTCOMPARISON: Chest radiograph November 20, 2022TECHNIQUE: AP chest.FINDINGS:Lines, tubes and hardware: Endotracheal tube tip projects approximately 0.5 cm above the roger. A gastric suction tube passes below the diaphragm. Lungs and pleura: Central interstitial and bibasilar airspace opacities, intervally improved compared to prior. The left costophrenic sulcus is obscured by overlying cardiomediastinal silhouette. No pneumothorax is identified on this semiupright radiograph.Heart and mediastinum: The heart size is unchanged. Vascular calcifications are present at the aorta. Bones and soft tissues: No acute abnormality.IMPRESSION: 1. Low-lying endotracheal tube tip projecting 0.5 cm above the roger. Recommend retraction.2. Intervally improved interstitial and airspace opacities which may represent any combination of pulmonary edema infection or aspiration. 3. Increased left retrocardiac opacity may be due to atelectasis, aspiration or pneumonia. [facility]valeJvdihylZIXRBAFCV5488-63-49 13:20:00 Test Item Value Reference Range Interpretation Comments Vancomycin AUC (test code = Vancomycin 34.8 AUC) [facility] DentonZmyhsnyWKRFKNBCLE2117-68-11 09:13:00 Test Item Value Reference Range Interpretation Comments Anti-Xa Unfractionated Heparin (test 0.49 code = Anti-Xa Unfractionated Heparin) [facility]aleNlnagrqCPNUFZXLX8793-12-13 06:12:00 Test Item Value Reference Range Interpretation Comments POC A Mech R (bpm) 15 bpm See_Comment [Automat ed message] The (test code = POC A system wh ich generated this Mech R (bpm)) result transmi tted reference range : <=70. The reference range was not used to interpr et this result as maricruz l/abnormal. [facility]valeKcdtshqWUSLHNBGF8417-38-91 06:12:00 Test Item Value Reference Range Interpretation Comments POC A Mech VT (test code = POC A Mech 370.0 2.0-1200.0 VT) [facility]aleXzuhbreXPDUFXMAW9296-53-21 06:12:00 Test Item Value Reference Range Interpretation Comments POC A Source (test code = POC A Source) ART [facility]aleAqjfdoxUGYESQQSQ9670-87-74 06:12:00 Test Item Value Reference Range Interpretation Comments POC A Temp (test code = POC A Temp) 37.0 [facility]valeUcuckobZRLTZKCSF7666-38-08 06:12:00 Test Item Value Reference Range Interpretation Comments POC A pH (test code = POC A pH) 7.33 1 7.35-7.45 [facility]valeYurasemKBCCEMEGU3949-39-60 06:12:00 Test Item Value Reference Range Interpretation Comments POC A PO2 (test code = POC A PO2) 76 80-100 [facility]valeQkfqkucLPJLCWKSU3343-26-33 06:12:00 Test Item Value Reference Range Interpretation Comments POC A PCO2 (test code = POC A PCO2) 44 35-45 [facility]valeVfoplkdIXJJUBTEG2700-26-96 06:12:00 Test Item Value Reference Range Interpretation Comments POC A HCO3 (test code = POC A HCO3) 23 22-26 [facility]valeOpdegabLGRVUYFMU9083-43-84 06:12:00 Test Item Value Reference Range Interpretation Comments POC A BE (test code = POC A BE) -3 -2-2 [facility]valeCetsekhYNDCCBIGS1125-67-03 06:12:00 Test Item Value Reference Range Interpretation Comments POC A O2 Sat (calc) (test code = POC A 94.0 95.0-100.0 O2 Sat (calc)) [facility]valeAusicijXVOTNXLNC0450-35-92 06:12:00 Test Item Value Reference Range Interpretation Comments POC A Na (test code = POC A Na) 135 135-145 [facility]valeNloyklwBVJCJRSFJ4571-48-21 06:12:00 Test Item Value Reference Range Interpretation Comments POC A K (test code = POC A K) 5.1 3.5-5.1 [facility]valeDocodtdPQONYGWIP9501-23-62 06:12:00 Test Item Value Reference Range Interpretation Comments POC A Ca Ion (test code = POC A Ca Ion) 1.23 1.05-1.25 [facility]valeObjggaeAPSFBIMMK1058-34-39 06:12:00 Test Item Value Reference Range Interpretation Comments POC A Hgb Tot (test code = POC A Hgb 10.5 12.0-16.0 Tot) [facility]valeLeiolacCAJRHEBRS6760-65-35 06:12:00 Test Item Value Reference Range Interpretation Comments POC A LA (test code = POC A LA) 0.8 0.5-2.2 [facility]valeChuwzehMMWHHLIEG5280-78-80 06:12:00 Test Item Value Reference Range Interpretation Comments POC A Glu (test code = POC A Glu) 130 70-99 [facility]valeCmqkbiuGGAWRPZUG7805-65-83 06:12:00 Test Item Value Reference Range Interpretation Comments POC A PEEP (test code 10.0 See_Comment [Auto mated message] The = POC A PEEP) system which g enerated this result transmit keo reference range : <=40.0. The reference r terra was not used to interpr et this result as maricruz l/abnormal. [facility]valeXiewdhmXVLJGHVRQ1107-10-46 06:12:00 Test Item Value Reference Range Interpretation Comments POC A %FIO2 (test code = POC A %FIO2) 40.0 18.0-100.0 [facility]valeFsqshdzOHVWSIQMR6642-48-88 06:12:00 Test Item Value Reference Range Interpretation Comments POC A Hct (calc) (test code = POC A Hct 32.0 36.0-48.0 (calc)) [facility]valeGkrhnaoKEOXXWTSH1785-29-96 06:12:00 Test Item Value Reference Range Interpretation Comments POC A Cl (test code = POC A Cl) 109 95-109 [facility]valeRptjeawPHVDGWIHY5150-70-02 06:12:00 Test Item Value Reference Range Interpretation Comments POC A Ca Ion at pH 7.4 (test code = POC 1.20 1.05-1.25 A Ca Ion at pH 7.4) [facility]valeChrgfncPULHKQCWP8376-21-80 06:12:00 Test Item Value Reference Range Interpretation Comments POC A Mode #1 (test code = POC A Mode ACVC #1) [facility]valeDacjhjiIDWOVEUUY5951-90-04 06:02:00 Test Item Value Reference Range Interpretation Comments B/C Ratio (test code = B/C Ratio) 33 1 6-25 [place] 62241023-06-14 01:30:54 Test Item Value Reference Range Interpretation Comments RADRPT (test EXAM: XR ABDOMEN 1 VIEWDATE: code = RADRPT) 11/21/2022 16:25 INDICATION: - Feeding tube placement ADDITIONAL INFORMATION: None.COMPARISON: 11/21/2022 TECHNIQUE: Limited AP view of the abdomen for tube placement assessment. Number of images: 2FINDINGS: Transesophageal feeding tube tip: NoneTransesophageal suction tube sidehole: Side port and tip within the gastric body and gastric antrum respectively.Other tubes and lines: None.Bilateral common iliac stents and aortobiiliac vascular calcifications is seen again.Small colonic stool burden seen. No bowel dilation.IMPRESSION: 1. Appropriately positioned transesophageal gastric suction tube. [facility]alePgnceoiIEUOVLFYX3264-41-26 18:36:00 Test Item Value Reference Range Interpretation Comments POC V Source (test code = POC V Source) CRISTÓBAL [facility]valeTqxhvvqDHOHBEQSC1046-91-81 18:36:00 Test Item Value Reference Range Interpretation Comments POC V Temp (test code = POC V Temp) 37.0 [facility]valeFwkdibdJICJXQMBK6866-53-62 18:36:00 Test Item Value Reference Range Interpretation Comments POC V Ion Ca (test code = POC V Ion Ca) 1.19 1.05-1.25 [place] [address]-06-13 18:36:00 Test Item Value Reference Range Interpretation Comments POC V K (test code = POC V K) 5.4 3.5-5.1 [place] [address]-06-13 18:36:00 Test Item Value Reference Range Interpretation Comments POC V Na (test code = POC V Na) 136 135-145 [place] [address]-06-13 18:36:00 Test Item Value Reference Range Interpretation Comments POC V LA (test code = POC V LA) 1.1 0.5-2.2 [place] [address]-06-13 18:36:00 Test Item Value Reference Range Interpretation Comments POC V pH (test code = POC V pH) 7.35 1 7.28-7.42 [place] [address]-06-13 18:36:00 Test Item Value Reference Range Interpretation Comments POC V PCO2 (test code = POC V PCO2) 42 38-52 [place] [address]-06-13 18:36:00 Test Item Value Reference Range Interpretation Comments POC V PO2 (test code = POC V PO2) 52 20-49 [place] [address]-06-13 18:36:00 Test Item Value Reference Range Interpretation Comments POC V HCO3 (test code = POC V HCO3) 23 22-26 [place] [address]-06-13 18:36:00 Test Item Value Reference Range Interpretation Comments POC V BE (test code = POC V BE) -2 -2-2 [facility]valeAmiphmqMIKXLHNKJ8096-24-93 18:36:00 Test Item Value Reference Range Interpretation Comments POC V O2 Sat (calc) (test code = POC V 84.4 40.0-70.0 O2 Sat (calc)) [place] [address]-06-13 18:36:00 Test Item Value Reference Range Interpretation Comments POC V Hgb Tot (test code = POC V Hgb 10.4 12.0-16.0 Tot) [place] [address]-06-13 18:36:00 Test Item Value Reference Range Interpretation Comments POC V Glu (test code = POC V Glu) 137 70-99 [place] [address]-06-13 18:36:00 Test Item Value Reference Range Interpretation Comments POC V PEEP (test code 8.0 See_Comment [Auto mated message] The = POC V PEEP) system which g enerated this result transmit koe reference range : <=40.0. The reference r terra was not used to interpr et this result as maricruz l/abnormal. [facility]valeTbpxjzqPGFPWOPCF6901-38-16 18:36:00 Test Item Value Reference Range Interpretation Comments POC V %FIO2 (test code = POC V %FIO2) 60.0 18.0-100.0 [place] 587543-06-13 18:36:00 Test Item Value Reference Range Interpretation Comments POC V Hct (calc) (test code = POC V Hct 31.0 36.0-48.0 (calc)) [facility]valeRcipfkeKWZRHVCRW2769-59-74 18:36:00 Test Item Value Reference Range Interpretation Comments POC V Cl (test code = POC V Cl) 110 95-109 [facility]valeFkykbkqQJOOHJXKF3072-95-63 18:36:00 Test Item Value Reference Range Interpretation Comments POC V Ca Ion at pH 7.4 (test code = POC 1.17 1.05-1.25 V Ca Ion at pH 7.4) [facility]valeUjgxltfVLPZBAEIE0958-64-08 18:36:00 Test Item Value Reference Range Interpretation Comments POC V Mode #1 (test code = POC V Mode ACVC #1) [facility]valeEeumeahZAFAFZXXQ1862-91-53 18:36:00 Test Item Value Reference Range Interpretation Comments POC V Mech R (bpm) 20 bpm See_Comment [Automat ed message] The (test code = POC V system wh ich generated this Mech R (bpm)) result transmi tted reference range : <=70. The reference range was not used to interpr et this result as maricruz l/abnormal. [facility]roePqdpsbgYDBRQFVFX8269-09-01 18:36:00 Test Item Value Reference Range Interpretation Comments POC V Mech VT (test code = POC V Mech 370.0 2.0-1200.0 VT) [facility]valeCbdmnowVMRCDMPWG8616-23-09 17:55:00 Test Item Value Reference Range Interpretation Comments U Amph Scr (test code Negative *NA*(11/21/22 = U Amph Scr) 12:55 PM) [facility]valePuujqhzCHTLSRVHV5273-42-77 17:55:00 Test Item Value Reference Range Interpretation Comments U Fide Scr (test code Negative *NA*(11/21/22 = U Fide Scr) 12:55 PM) [facility]valeUkaqelaHPPVXATEY8398-92-94 17:55:00 Test Item Value Reference Range Interpretation Comments U Benzodiaz Scr (test Positive *ABN*(11/21/22 code = U Benzodiaz Scr) 12:55 PM) [facility]valeFwqfmhiWHLWEXIBH6680-51-70 17:55:00 Test Item Value Reference Range Interpretation Comments U Cocaine Scr (test Negative *NA*(11/21/22 code = U Cocaine Scr) 12:55 PM) [facility]valeKiwuqmgVAHEMVHUG0538-27-87 17:55:00 Test Item Value Reference Range Interpretation Comments U Cannab Scr (test Negative *NA*(11/21/22 code = U Cannab Scr) 12:55 PM) [facility]valeCchphbaYGHVRIKIU3766-78-80 17:55:00 Test Item Value Reference Range Interpretation Comments U Opiate Scr (test Negative *NA*(11/21/22 code = U Opiate Scr) 12:55 PM) [id number] 17:55:00 Test Item Value Reference Range Interpretation Comments U Phencyclidine Scr (test Negative code = U Phencyclidine *NA*(11/21/22 12:55 Scr) PM) [facility]aleYtrnuwvPXQUBLJPY8104-80-29 17:55:00 Test Item Value Reference Range Interpretation Comments U Methadone Scr (test Negative *NA*(11/21/22 code = U Methadone Scr) 12:55 PM) [facility]aleGccfhtlOCOWKEPPM8808-60-88 17:55:00 Test Item Value Reference Range Interpretation Comments U Propoxyph Scr (test Negative *NA*(11/21/22 code = U Propoxyph Scr) 12:55 PM) [facility]aleJyliinvKGHMGSMEV7499-92-92 17:55:00 Test Item Value Reference Range Interpretation Comments UDS Note (test code = See Note 5(11/21/22 UDS Note) 12:55 PM) [facility]aleQzaqnqqEGSQOWCKN8896-08-14 17:53:00 Test Item Value Reference Range Interpretation Comments BNP (test code = BNP) 493 [facility]valeMqoyatzQOWTBKZSY4453-25-15 17:53:00 Test Item Value Reference Range Interpretation Comments Hgb A1C (test code = Hgb A1C) 5.6 [facility]aleJhssbfvGOTQFNDHV5589-35-28 17:53:00 Test Item Value Reference Range Interpretation Comments TSH (test code = TSH) 0.194 0.360-3.740 [facility] UiursdjUGNARPLQW5503-84-72 17:53:00 Test Item Value Reference Range Interpretation Comments T4 Free (test code = T4 Free) 0.89 0.76-1.46 [facility] SxucrsvWMMCAHKQIO0920-33-46 17:53:00 Test Item Value Reference Range Interpretation Comments PT (test code = PT) 15.0 s 12.0-14.7 [facility] FufjmccIPPWQEAHJU7579-07-51 17:53:00 Test Item Value Reference Range Interpretation Comments INR (test code = INR) 1.18 1 0.85-1.17 [facility] YjyzzelTMBMKNFEPJ7141-11-53 17:53:00 Test Item Value Reference Range Interpretation Comments PTT (test code = PTT) 74.4 s 22.9-35.8 [facility]roeFwrnetkSCCBOW9595-50-79 15:52:51 Test Item Value Reference Range Interpretation Comments RADRPT (test code = EXAM: XR ABDOMEN 1 RADRPT) VIEWDATE: 11/21/2022 9:55 INDICATION: - OG placement COMPARISON: None. TECHNIQUE: Limited AP view of the abdomen for tube placement assessment. Number of images: 3FINDINGS: Transesophageal feeding tube: None.Transesophageal suction tube sidehole in the distal esophagus in the final third image and needs to be further advanced.Other tubes and lines: Bilateral iliac stent grafts noted.No other changes.IMPRESSION: Tube positions as above. [facility] [id number] 14:09:00 Test Item Value Reference Range Interpretation Comments Source Transplant Resp Nasophrngl Swb Viral Panel (test code *NA*(11/21/22 9:09 AM) = Source Transplant Resp Viral Panel) [facility] [id number] 14:09:00 Test Item Value Reference Range Interpretation Comments Adenovirus PCR (test Not Detected (11/21/22 code = Adenovirus PCR) 9:09 AM) [facility] [id number] 14:09:00 Test Item Value Reference Range Interpretation Comments Coronavirus 229E (test Not Detected (11/21/22 code = Coronavirus 229E) 9:09 AM) [facility] [id number] 14:09:00 Test Item Value Reference Range Interpretation Comments Coronavirus HKU1 (test Not Detected (11/21/22 code = Coronavirus HKU1) 9:09 AM) [facility] [id number] 14:09:00 Test Item Value Reference Range Interpretation Comments Coronavirus NL63 (test Not Detected (11/21/22 code = Coronavirus NL63) 9:09 AM) [facility] [id number] 14:09:00 Test Item Value Reference Range Interpretation Comments Coronavirus OC43 (test Not Detected (11/21/22 code = Coronavirus OC43) 9:09 AM) [facility] [id number] 14:09:00 Test Item Value Reference Range Interpretation Comments Metapneumovirus PCR (test Not Detected code = Metapneumovirus (11/21/22 9:09 AM) PCR) [facility]2023-06-13 14:09:00 Test Item Value Reference Range Interpretation Comments Influenza A PCR (test Not Detected (11/21/22 code = Influenza A PCR) 9:09 AM) [place] [id number] 14:09:00 Test Item Value Reference Range Interpretation Comments Influenza A H1 PCR Not Detected (11/21/22 (test code = Influenza 9:09 AM) A H1 PCR) [facility]2023-06-13 14:09:00 Test Item Value Reference Range Interpretation Comments Influenza A H1N1 pdm09 Not Detected (11/21/22 (test code = Influenza 9:09 AM) A H1N1 pdm09) [facility]2023-06-13 14:09:00 Test Item Value Reference Range Interpretation Comments Influenza A H3 PCR Not Detected (11/21/22 (test code = Influenza 9:09 AM) A H3 PCR) [facility]2023-06-13 14:09:00 Test Item Value Reference Range Interpretation Comments Influenza B PCR (test Not Detected (11/21/22 code = Influenza B PCR) 9:09 AM) [place] [id number] 14:09:00 Test Item Value Reference Range Interpretation Comments Parainfluenza 1 PCR (test Not Detected code = Parainfluenza 1 (11/21/22 9:09 AM) PCR) [facility]2023-06-13 14:09:00 Test Item Value Reference Range Interpretation Comments Parainfluenza 2 PCR (test Not Detected code = Parainfluenza 2 (11/21/22 9:09 AM) PCR) [place] [id number] 14:09:00 Test Item Value Reference Range Interpretation Comments Parainfluenza 3 PCR (test Not Detected code = Parainfluenza 3 (11/21/22 9:09 AM) PCR) [facility]2023-06-13 14:09:00 Test Item Value Reference Range Interpretation Comments Parainfluenza 4 PCR (test Not Detected code = Parainfluenza 4 (11/21/22 9:09 AM) PCR) [facility]2023-06-13 14:09:00 Test Item Value Reference Range Interpretation Comments Respiratory Syncytial Not Detected (11/21/22 Virus A+B (test code = 9:09 AM) Respiratory Syncytial Virus A+B) [facility]2023-06-13 14:09:00 Test Item Value Reference Range Interpretation Comments Rhinovirus/Enteroviru Detected 10*ABN*(11/21/22 s (test code = 9:09 AM) Rhinovirus/Enteroviru s) [facility]2023-06-13 14:09:00 Test Item Value Reference Range Interpretation Comments SARS-CoV-2 (test code Not Detected 11(11/21/22 = SARS-CoV-2) 9:09 AM) [id number] 11:20:24 Test Item Value Reference Range Interpretation Comments pH Art (test code = pH Art) 7.35 1 7.35-7.45 [facility]aleQstfkdeHUUIEKHLW9799-46-39 11:20:24 Test Item Value Reference Range Interpretation Comments pCO2 Art (test code = pCO2 Art) 41 35-45 [facility]aleWlbmpfpROKDRBPZR6516-97-08 11:20:24 Test Item Value Reference Range Interpretation Comments pO2 Art (test code = pO2 Art) 62 80-100 [facility]aleFtlpdxnHRRTBLRMF0445-56-66 11:20:24 Test Item Value Reference Range Interpretation Comments HCO3 Art (test code = HCO3 Art) 23 22-26 [facility]aleLlxzhjiWCQNPJDVF0749-72-41 11:20:24 Test Item Value Reference Range Interpretation Comments BE Art (test code = BE Art) -3 -2-2 [facility] AtlantaUpsfowjUOLKKRVUR0709-94-76 11:20:24 Test Item Value Reference Range Interpretation Comments O2 Sat Art (calc) (test code = O2 Sat 90.1 95.0-100.0 Art (calc)) [facility] AtlantaUuahmjkAKQKXTBGX2326-31-94 11:20:24 Test Item Value Reference Range Interpretation Comments Temp Art (test code = Temp Art) 37.0 [facility] AtlantaannGram Sgkqw7466-10-93 11:07:00 Test Item Value Reference Range Interpretation Comments Gram Stain (test Moderate WBC's No code = Gram Stain) Squamous Epithelial Cells; Few Gram Positive Cocci In Pairs [facility] AtlantaannGram Stain [id number] 11:07:00 Test Item Value Reference Range Interpretation Comments Gram Stain Report Gram Stain Performed By: (test code = Gram [facility] [place] Stain Report) [facility] CenterCulture: Respiratory w/Gram Ssmzn2520-23-37 11:07:00 Test Item Value Reference Range Interpretation Comments Culture: Respiratory Normal Respiratory w/Gram Stain (test code Marycarmen Isolated = Culture: Respiratory w/Gram Stain) [facility] AtlantaXsummefISBWDX6357-94-76 07:43:41 Test Item Value Reference Range Interpretation Comments RADRPT (test code EXAM: CTA CHEST WITH = RADRPT) CONTRASTDATE: 11/21/2022 0:52INDICATION: - respiratory failureCOMPARISON: No prior chest CT studyTECHNIQUE: Volumetric CT of the chest is acquired during pulmonary arterial phase following intravenous administration of contrast. Axial, sagittal, coronal, and oblique MIP reconstructions are created at the acquisition workstation.IV Contrast: Please refer to technologist documentation.DLP: Please refer to technologist documentation.FINDINGS: Lines and tubes: Endotracheal tube extending to the mid thoracic trachea..Lower neck: The thyroid gland is heterogeneous with multiple hypodense subcentimeter nodules. The rest of the lower neck is unremarkable..Axilla: No axillary lymphadenopathy..Airway: Central tracheobronchial system is patent. Mild secretion is seen in the trachea..Lungs and pleura: Bilateral small to moderate pleural effusion with associated lower lobe compression atelectasis are seen. Interlobular septal thickening patchy groundglass and consolidative opacities in the right lung more prominent in the right middle and lower lobes are noted. No pneumothorax.Mediastinum, ketan and intrathoracic lymph nodes: Mediastinal and bilateral hilar lymph nodes measuring up to 1.1 cm in the subcarinal regionHeart, pericardium and great vessels: Pulmonary emboli: Opacification of pulmonary arteries is optimal. No CT evidence of right heart strain.Pulmonary trunk: 2.8 cm.Ascending aorta: 2.9 cm. Atherosclerotic calcific ossifications are seen in the thoracic aorta and branch vessels.Heart: Normal. RV/ LV <1. No right heart strain.Pericardium: No pericardial fluid. Multivessel coronary arterial calcifications with multiple stentsDouble SVC is noted with left-sided SVC draining to the coronary sinus. Left vertebral artery is originating from aortic arch (a common variant).Upper abdomen: Contrast reflux to the inferior vena cava is noted. Please refer to concurrently obtained but separately dictated abdominopelvic CT study for intra-abdominal findings.Osseous structures: No acute abnormality. Chronic superior endplate L1 compression deformity causing more than 50% height loss. Degenerative changes are seen in the cervical spine.Soft tissues: Soft tissue edema particularly along the flanks is noted..IMPRESSION: 1. No pulmonary embolism identified. No CT evidence for right heart strain, although significant reflux of contrast into the IVC is suggestive of right heart dysfunction.2. Endotracheal tube terminates within the trachea.3. Small bilateral pleural effusions with adjacent compressive atelectasis.4. Interlobular septal thickening patchy groundglass and consolidative opacities in the right lung more prominent in the right middle and lower lobes .5. Multivessel coronary artery calcifications status post stenting.6. Chronic appearing compression deformity of the L1 superior endplate resulting in greater than 50% central body height loss7. Please refer to concurrent CT abdomen pelvis for findings within the abdomen.UT SECTION: [id number] 07:01:33 Test Item Value Reference Range Interpretation Comments RADRPT (test code EXAM: CT ABDOMEN AND PELVIS = RADRPT) WITH CONTRASTDATE: 11/21/2022 0:52 INDICATION: - found down, ecchymosis to abdomen. COMPARISON: Same-day radiographsTECHNIQUE: Volumetric CT of the abdomen and pelvis is acquired following intravenous administration of contrast. Axial, coronal and sagittal images are provided.DLP: Refer to CT protocol formIV contrast: Refer to MAR/technologist documentationUT SECTION: ERFINDINGS: Chief Communications Officer: Noncontributory.Lines and tubes: Carrera catheter terminates in the decompressed urinary bladder.Lower Thorax: Small bilateral pleural effusions, right slightly greater than left, with adjacent compressive atelectasis. In addition, multifocal groundglass opacities and nodular opacities in the right middle and lower lobes are visualized. No diaphragmatic injury.Liver and biliary tree: Normal. No injury. No biliary abnormality. Gallbladder: Normal. No CT evidence of gallstones. No injury.Pancreas: Fatty infiltration of the pancreas. No injury.Spleen: Normal. No injury.Adrenals: Normal. No injury.Kidneys and ureters: Atrophic, multicystic left kidney with perinephric stranding. The right kidney appears normal. No injury.Bladder: Decompressed with Carrera catheter. No injury.Reproductive organs: No injury.Gastrointestinal tract: Normal. No bowel injury.Peritoneum and retroperitoneum: No fluid collections or free air.Lymph nodes: Normal.Vasculature: No vascular injury. Aneurysmal dilatation of the infrarenal aorta measuring 3.3 cm. Severe calcified and noncalcified atherosclerotic disease of the abdominal aorta and its major branches. In particular, there is high-grade stenosis of the celiac artery and SMA origins, as well as the bilateral renal artery origins. Review inferior to the renal arteries, there is eccentric noncalcified plaque measuring up to 1 cm in thickness. There is high-grade stenosis of the bilateral common iliac arteriesSpine/ Bones: No acute abnormality of the spine. Chronic appearing superior endplate compression deformity of L1 with superimposed Schmorl's node. No other bony injury.Soft tissues: Diffuse soft tissues edema, particularly along the flanks.IMPRESSION: 1. No acute traumatic injury to the abdomen or pelvis.2. Chronic superior endplate compression deformity of L1.3. Severe calcified and noncalcified atherosclerotic disease of the abdominal aorta and its major branches, described above. Aneurysmal dilatation of the infrarenal aorta measuring 3.3 cm.4. Small bilateral pleural effusions.5. Groundglass opacities of the right middle and lower lobes, partially visualized, may represent infection or sequela of aspiration.6. Subcutaneous edema, particularly along the flanks [facility] HospitalKlcuconFHKBNU3646-48-10 06:10:47 Test Item Value Reference Range Interpretation Comments RADRPT (test code = EXAM: CT CERVICAL SPINE RADRPT) WITHOUT CONTRASTDATE: 11/21/2022 1:06INDICATION: - found down amsCOMPARISON: NoneTECHNIQUE: Volumetric CT of the cervical spine is acquired without contrast. Axial, coronal and sagittal images are provided. IV contrast: None.DLP: Refer to CT protocol formUT SECTION: ERFINDINGS: The spine is imaged from the skull base to the level of T3.Chief Communications Officer: Noncontributory.Bones: No acute fracture or malalignment is identified. Moderate to severe multilevel degenerative changes of cervical spine are present, which results in multiple levels of severe neural foraminal stenosis. Soft tissues: No soft tissue abnormality is identified.No apical pneumothorax. Small lateral pleural effusions. Endotracheal tube terminates outside the gqebk-vz-hdns. Tiny foci of air within the bilateral subclavian veins are present.IMPRESSION: 1. No acute abnormality of the cervical spine.2. Small bilateral pleural effusions. [facility] [id number] 06:08:21 Test Item Value Reference Range Interpretation Comments RADRPT (test code = EXAM: CT BRAIN WITHOUT RADRPT) CONTRASTDATE: 11/21/2022INDICATION: - encephalopathy.COMPARISON : None.TECHNIQUE: Axial CT images of the brain were obtained. Sagittal and coronal reformats.IV contrast: NoneDLP: Refer to CT protocol formFINDINGS: There is no edema, hemorrhage, mass lesion or other acute intracranial abnormality. There is no chronic abnormality.Partially imaged endotracheal tube. Associated secretions layer in the paranasal sinuses.IMPRESSION:No acute intracranial abnormality. [facility] WuCulture: [id number] 04:46:00 Test Item Value Reference Range Interpretation Comments Culture: Blood (test code No Growth At 5 Days = Culture: Blood) [facility] WuURINE AND [id number] 04:26:00 Test Item Value Reference Range Interpretation Comments UA Color (test code = Dark Yellow UA Color) *NA*(11/20/22 11:26 PM) [facility] [id number] 04:26:00 Test Item Value Reference Range Interpretation Comments UA Turbidity (test code Slight *ABN*(11/20/22 = UA Turbidity) 11:26 PM) [facility] [id number] 04:26:00 Test Item Value Reference Range Interpretation Comments UA Spec Grav (test code = UA Spec 1.018 1 Grav) [facility] AND [id number] 04:26:00 Test Item Value Reference Range Interpretation Comments UA pH (test code = UA pH) 5.0 1 5.0-8.0 [facility] AND [id number] 04:26:00 Test Item Value Reference Range Interpretation Comments UA Protein (test code = UA Protein) 30 mg/dL [facility] AND [id number] 04:26:00 Test Item Value Reference Range Interpretation Comments UA Glucose (test code = UA Negative mg/dL Glucose) [facility] AND [id number] 04:26:00 Test Item Value Reference Range Interpretation Comments UA Ketones (test code = UA Negative mg/dL Ketones) [facility] AND [id number] 04:26:00 Test Item Value Reference Range Interpretation Comments UA Bili (test code = Negative *NA*(11/20/22 UA Bili) 11:26 PM) [facility] AND [id number] 04:26:00 Test Item Value Reference Range Interpretation Comments UA Blood (test code = Negative (11/20/22 11:26 UA Blood) PM) [facility] AND [id number] 04:26:00 Test Item Value Reference Range Interpretation Comments UA Urobilinogen (test code = UA 4.0 0.1-1.0 Urobilinogen) [facility] AND [id number] 04:26:00 Test Item Value Reference Range Interpretation Comments UA Nitrite (test code Negative (11/20/22 11:26 = UA Nitrite) PM) [facility] AND [id number] 04:26:00 Test Item Value Reference Range Interpretation Comments UA Leuk Est (test Negative (11/20/22 11:26 code = UA Leuk Est) PM) [facility] AND [id number] 04:26:00 Test Item Value Reference Range Interpretation Comments UA Ascorbic Acid (test Negative 9*NA*(11/20/22 code = UA Ascorbic 11:26 PM) Acid) [facility] AND [id number] 04:26:00 Test Item Value Reference Range Interpretation Comments UA Sq Epi (test code = UA Sq Occasional /LPF Epi) Rodney Bailon AND [id number] 04:26:00 Test Item Value Reference Range Interpretation Comments UA WBC (test code = 1 See_Comment [Automa keo message] The UA WBC) system which ge nerated this result transmit keo reference range : <=5. The reference range was not used to interpr et this result as maricruz l/abnormal. Rodney Bailon AND [id number] 04:26:00 Test Item Value Reference Range Interpretation Comments UA RBC (test code = no gt See_Comment [Automa keo message] The UA RBC) system which ge nerated this result transmit keo reference range : <=2. The reference range was not used to interpr et this result as maricruz l/abnormal. Rodney Bailon AND [id number] 04:26:00 Test Item Value Reference Range Interpretation Comments UA Mucus (test code = UA Mucus) Few /LPF [facility] AND [id number] 04:26:00 Test Item Value Reference Range Interpretation Comments UA Hyal Cast (test 13 See_Comment [Automat ed message] The code = UA Hyal Cast) system which generated this result transmit keo reference range : <=2. The reference range was not used to interpr et this result as maricruz l/abnormal. Rodney WashburnCulture: [id number] 04:26:00 Test Item Value Reference Range Interpretation Comments Culture: Blood (test code No Growth At 5 Days = Culture: Blood) [facility] FynnpnwNBKCOZ8257-18-51 04:25:41 Test Item Value Reference Range Interpretation Comments RADRPT (test code EXAM: XR CHEST 1 VIEWDATE: = RADRPT) 11/20/2022 23:02 INDICATION: - DyspneaCOMPARISON: None.TECHNIQUE: AP chest.FINDINGS:Lines, tubes and hardware: The endotracheal tube tip is 3.7 cm above the carinaLungs and pleura: Pulmonary opacities are noted within the lungs, bilaterally. The costophrenic sulci are sharp without effusion.Heart and mediastinum: The heart size is normal. The mediastinal contours are normal. Atherosclerotic calcifications of the thoracic aorta.Bones and soft tissues: No acute abnormality. Multilevel degenerative changes of the thoracic spine. Additionally, there is degenerative change of the right acromioclavicular joint.IMPRESSION: 1. Bilateral pulmonary opacities may represent multifocal infection, aspiration or pulmonary edema centrally. [facility]roeHquuslhNVFZTHNQN2708-20-05 03:20:00 Test Item Value Reference Range Interpretation Comments Procalcitonin Lvl (test 0.97 See_Comment [Au tomated message] code = Procalcitonin Lvl) Th e system which generated this result transmitted ref erence range: <=0.10. The reference range was not used to interpr et this result as normal/abnormal . [id number] 03:20:00 Test Item Value Reference Range Interpretation Comments Lactic Acid Lvl (test code = Lactic 0.9 0.5-2.2 Acid Lvl) [facility] CenterJsbyrjfVRMHNYFZWX5534-27-53 03:20:00 Test Item Value Reference Range Interpretation Comments Plt Morph (test code = Normal (11/20/22 10:20 Plt Morph) PM) [facility]entonArbghobSXFGVTQZZO0419-99-51 03:20:00 Test Item Value Reference Range Interpretation Comments Anisocyte (test code = 1+ *ABN*(11/20/22 Anisocyte) 10:20 PM) [facility] CenterQicckwzCRUSGTUTUT4252-25-60 03:20:00 Test Item Value Reference Range Interpretation Comments Microcyte (test code = 1+ *ABN*(11/20/22 Microcyte) 10:20 PM) [facility] [id number] 20:25:20Demetrius Yu CRNA ? ? 07/21/2019 ?2:29 PM Nerve Block Procedure: Supraclavicular Nerve Block Lat erality: LeftSurgical Anesthesia: no Start Time: 07/21/2019 11:47 AMEnd Time: 07/21/2019 11:54 AMPost Op Pain Management: Post op pain management requested by Surgeon pe surgical Pre Anesthesia consult.Resident/ANNEALING FURNACE OPERATOR: Demetrius Yu CRNAPerformed by: resident/CRNAPreanesthetic timeout completed priorto procedure: patient identified,IV checked, site marked, risks [...] Additional Notes:Late Entry made, verified with Seda Ledesma RN who also assisted with procedure Left Supraclavicular Nerve Block Assessment completed, anesthetic plan and risks discussed. Consent was obtained. Timeout performed at bedside. Right neck prepped with chloraprep; relevant structuresvisualized under continuous ultrasound. Skin localized with 3ml [...] technique maintained throughout. Patient tolerated well. ? [facility]FL [facility] (NON-REPORTABLE)2019-07-16 16:55:26 These images do not require a Radiology diagnostic report.[facility] TylerIntubation2020-02-05 16:07:50Demetrius Yu CRNA ? ? 07/16/2019 10:08 AMIntubationDate/Time: 07/16/2019 10:04 AMUrgency: electiveGeneral Information and Staff Patient location during procedure: ORResident/ANNEALING FURNACE OPERATOR: Yu, Demetrius R,CRNAPerformed: resident/ANNEALING FURNACE OPERATOR Indications and Patient ConditionIndications for airway management: anesthesiaSpontaneous ventilation: presentSedation level: deepPreoxygenated: yesPatient position: sniffingMILS maintained throughoutMask difficulty assessment: 1 - vent by mask Final Airway DetailsFinal airway type: supraglottic airway Successful airway: uniqueSize 4 Number of attempts at approach: 1Ventilation between attempts: BVMNumber of other approaches attempted: 0 Additional CommentsPt assessed, consented and Time Out performed. ?Patient supine, head midline and neutral. Nurse/ANNEALING FURNACE OPERATOR at side of bedassisting. ?Pre-oxygenated, induced and LMA 4 placed atraumatically. ?Placement verified upon auscultation bilaterally with good chest rise. ?Positive ETCO2. LMA secured, soft airway placed, eyes tapedfor protection. VSS, tolerated well.[facility] History and Physical Notes Date/Time Note Provider Source 2022-11-28 Shana Fitzpatrick MD: PERFORM, [facility] 23:45:00-00:00 MODIFY, MODIFY, MODIFYEvent [facility] er Display: History and PhysicalAuthored Date: [id number] have seen and examined this patient with CARMINA park. I agree with the assessment and plan in the note dated 11/21/2022. Please see below for additional plans:I have reviewed the current laboratory results, microbiology results, radiologic findings and medications. Physical exam may be limited by COVID-19 status of patient (if positive).I have personally discussed the case with the ICU team, the primary team (if applicable), technology consultant teams and appropriate surgical teams.This patient is critically ill and requires ICU for higher level of care.Critical care time 45 mins exclusive of procedures.hx of CHF. s/p PCI/stentPVD. renal artery stenosishx of afib on eliquisrecent hospitalization x 2CXR:_Plans:hypoxic respiratory failureaspiration PNA- cefepime/flagylCOPD exacerbation? Solu-Medrol. nebs. budesoniderhino virus positive- Solu-Medrolon home oxygen after COVIDAC 15/350/8/60CAD. s/p stent. NSTEMI. following troponin. needs LHCecho pendingvolume overload- lasixacute renal failure. hyperkalemia. renal US pendingNSTEMI- IV heparinafib- metoprololright LL infiltratestube feedsbowel regimencultures pendingShana Fitzpatrick MDElectronically Signed: 11/21/22 16:55 2022-11-28 Kira Parkique WING COVERER: Steve Cook [facility] 23:45:00-00:00 PERFORMEvent Display: History and Center PhysicalAuthored Date: [id number] and Physical Primary Team Name: [facility] Red TeamTeam Contact Info:PCP Contact info:Family contact info: Code Status: None Specified=FULL CODE Chief Complaint: 78 y/o female found unresponsive by family; LSN at unknown time; intubated by EMS due to hypoxia in 50's on room air. PMH: COPD/CHF; GCS 3 History of Present Illness: 77 F with hx of COPD on 2L NC (after COVID infection), CAD, PR s.p PCI in 2005 (on Plavix), PAD, renal artery stenosis (status post peripheral vascular intervention), atrial fibrillation on Eliquis who presented via [facility] after being found down at home yesterday evening at 8 pm. Last known well time ~ 7 PM 11/20/2022 (seen on Ring camera). Per the granddaughter, pt appeared SOB during visit (est 1530 yesterday) prior to the collapse. EMS was called, patient found with GCS of 3, SpO2 50% and subsequently intubated in the field. [facility] to [facility] for higher level of care care. Per family, 2 recent hospital admits, 3 weeks ago in [place], [place] for COPD exacerbation, most recently at [facility] in [place] for atrial fibrillation. VBG pH 7.18, pCO2 78. HS Troponin 714, K 5.9, Cr 1.63 hyperkalemia and ELIAS at presentation. Bedside US indicated moderately reduced EF. Cardiology was consulted. CT chest with Small bilateral pleural effusions with adjacent compressive atelectasis and Interlobular septal thickening patchy ground-glass and consolidative opacities in the right lung more prominent in the right middle and lower lobes. Admitted to MICU for acute respiratory failure and higher level of care. Received chemically sedated and orally intubated. Denies pain Review of Systems: ROS limited due to intubation/sedation Problem List/Past Medical History: Ongoing No qualifying data COPD on 2L NC at homeCADMI s/p PCI, on DAPT (2005)PADRAS s/p stentAfib on Eliquis Procedure/Surgical History: PCI Social History: Electronic Cigarette/Vaping Electronic Cigarette Use: Unknown/Not obtained. Tobacco Use: Unknown if ever smoked. Tobacco smoke exposure: Unable to obtain. Did the Patient Smoke Cigarettes Anytime During the Last 365 Days? Unable to obtain. Cessation Counseling Provided? No. Allergies: No active allergies Home Medications: amLODIPine-benazepril 5 mg-20 mg oral capsule, 1 cap, PO, Daily aspirin 81 mg tablet, enteric coated, 81 mg= 1 tab, PO, Daily Coreg 12.5 mg oral tablet, 12.5 mg= 1 tab, PO, Daily Eliquis 5 mg oral tablet, 5 mg= 1 tab, PO, BID Plavix 75 mg oral tablet, 75 mg= 1 tab, PO, Daily predniSONE 10 mg oral tablet, 10 mg= 1 tab, PO, BID Trelegy Ellipta 100 mcg-62.5 mcg-25 mcg/inh inhalation powder, 1 puff, INHALATION, Daily Physical Exam: Vitals and Measurements T: 97.8 F (Bladder) TMIN: 95.4 F (Bladder) TMAX: 99.7 F (Rectal) HR: 60 (Apical) RR: 20 BP: 127/62 SpO2: 93% WT: 82.1 kg BMI: 30.12 General Appearance: Chronically ill, but in no acute distressHead: Normocephalic, atraumaticEyes: Pupils equal/round/reactive to light, no scleral icterus, extraocular movements intactEars: Normal EACs, tympanic membranes flat, and normal landmarksMouth: ETT, Moist mucous membranes, tongue normal, normal dentition, oropharynx clearNeck: Supple, FROM, no thyromegaly, no masses, no cervical lymphadenopathy, no bruitsLungs: Mechanical ventilation, CTA bilaterally, no wheezes/rales/rhonchi, normal work of breathingHeart: Chest non-tender, non displaced PMI, irregular rate and irregular rhythm, no murmur, rubs or gallopsAbdomen: soft, non-tender, non-distended, no HSM, and no massMusculoskeletal: Downward pointing toes/feetLymph: No cervical or inguinal lymphadenopathyExtremities: Symmetric, no obvious defect, and no cyanosis/clubbing/edema. 2+ pulses in DP/PT/radial bilaterally.Neurologic: Arouses to voice, follows commands, ETT nonverbalSkin: No suspicious lesions or rashPsych: Unable to assess Pertinent Labs: LabsAdenovirus PCR: Not Detected (11/21/22 09:09:00)AGAP: 10.4 mEq/L (11/21/22 06:05:40)Anisocyte: 1 + Abnormal (11/20/22 22:20:00)Anti-Xa Unfractionated Heparin: Basophils: 0.1 % (11/21/22 05:08:00)BE Art: -3 mMol/L Low (11/21/22 06:20:24)BE Cristóbal: -4 mMol/L Low (11/20/22 22:20:00)BNP: 523 pg/mL High (11/21/22 01:26:00)BUN: 51 mg/dL High (11/21/22 06:05:40)Calcium Lvl: 7.7 mg/dL Low (11/21/22 06:05:40)Chloride Lvl: 114 mEq/L High (11/21/22 06:05:40)CO2: 23 mEq/L Low (11/21/22 06:05:40)Coronavirus 229E: Not Detected (11/21/22 09:09:00)Coronavirus HKU1: Not Detected (11/21/22 09:09:00)Coronavirus NL63: Not Detected (11/21/22 09:09:00)Coronavirus OC43: Not Detected (11/21/22 09:09:00)Creatinine Lvl: 1.51 mg/dL High (11/21/22 06:05:40)eGFR: 36 mL/min/1.73m2 (11/21/22 06:05:40)Eosinophils: 0.1 % (11/21/22 05:08:00)Gluc POC Comment 1: Notified RN/MD (11/20/22 22:16:00)Glucose Lvl: 135 mg/dL High (11/21/22 06:05:40)Glucose POC: 134 mg/dL High (11/21/22 07:59:00)HCO3 Art: 23 mMol/L (11/21/22 06:20:24)HCO3 Cristóbal: 27 mMol/L High (11/20/22 22:20:00)Hct: 31.3 % Low (11/21/22 05:08:00)Hgb: 10 g/dL Low (11/21/22 05:08:00)HS Troponin I: 2259 pg/mL High (11/21/22 06:10:22)Influenza A H1 PCR: Not Detected (11/21/22 09:09:00)Influenza A H1N1 pdm09: Not Detected (11/21/22 09:09:00)Influenza A H3 PCR: Not Detected (11/21/22 09:09:00)Influenza A PCR: Not Detected (11/21/22 09:09:00)Influenza B PCR: Not Detected (11/21/22 09:09:00)INR: 1.14 (11/21/22 05:08:00)Lactic Acid Lvl: 0.9 mMol/L (11/20/22 22:20:00)Lymphocytes: 3.7 % Low (11/21/22 05:08:00)Lymphocytes #: 0.2 K/CMM Low (11/21/22 05:08:00)MCH: 30.1 pg (11/21/22 05:08:00)MCHC: 32 g/dL (11/21/22 05:08:00)MCV: 93.9 fL (11/21/22 05:08:00)Metapneumovirus PCR: Not Detected (11/21/22 09:09:00)Microcyte: 1 + Abnormal (11/20/22 22:20:00)Monocytes: 3.3 % (11/21/22 05:08:00)Monocytes #: 0.2 K/CMM (11/21/22 05:08:00)MPV: 8.7 fL (11/21/22 05:08:00)Neutrophils #: 4.6 K/CMM (11/21/22 05:08:00)O2 Sat Art (calc): 90.1 % Low (11/21/22 06:20:24)O2 Sat Cristóbal (calc): 61 % (11/20/22 22:20:00)Parainfluenza 1 PCR: Not Detected (11/21/22 09:09:00)Parainfluenza 2 PCR: Not Detected (11/21/22 09:09:00)Parainfluenza 3 PCR: Not Detected (11/21/22 09:09:00)Parainfluenza 4 PCR: Not Detected (11/21/22 09:09:00)pCO2 Art: 41 mmHg (11/21/22 06:20:24)pCO2 Cristóbal: 78 mmHg High (11/20/22 22:20:00)pH Art: 7.35 (11/21/22 06:20:24)pH Cristóbal: 7.15 Critical (11/20/22 22:20:00)Platelet: 82 K/CMM Low (11/21/22 05:08:00)Plt Morph: Normal (11/20/22 22:20:00)pO2 Art: 62 mmHg Low (11/21/22 06:20:24)pO2 Cristóbal: 42 mmHg (11/20/22 22:20:00)POC Performing Location: See Note (11/21/22 07:59:00)Potassium Lvl: 5.4 mEq/L High (11/21/22 06:05:40)Procalcitonin Lvl: 0.97 ng/mL High (11/20/22 22:20:00)PT: 14.6 seconds (11/21/22 05:08:00)PTT: 23.7 seconds (11/20/22 22:20:00)RBC: 3.33 M/CMM Low (11/21/22 05:08:00)RDW: 14.9 % High (11/21/22 05:08:00)Respiratory Syncytial Virus A+B: Not Detected (11/21/22 09:09:00)Rhinovirus/Enterovirus: Detected Abnormal (11/21/22 09:09:00)SARS-CoV-2: Not Detected (11/21/22 09:09:00)Segs: 92.8 % High (11/21/22 05:08:00)Sodium Lvl: 142 mEq/L (11/21/22 06:05:40)Source Strep: Urine (11/20/22 23:26:00)Source Transplant Resp Viral Panel: Nasophrngl Swb (11/21/22 09:09:00)Strep pneumoniae Ag: Negative (11/20/22 23:26:00)Temp Art: 37 DegC (11/21/22 06:20:24)Temp Cristóbal: 37 DegC (11/20/22 22:20:00)U Legion Ag: Negative (11/20/22 23:26:00)UA Ascorbic Acid: NEG (11/20/22 23:26:00)UA Bili: NEG (11/20/22 23:26:00)UA Blood: NEG (11/20/22 23:26:00)UA Color: cDark Yellow (11/20/22 23:26:00)UA Glucose: NEG (11/20/22 23:26:00)UA Hyal Cast: 13 /LPF High (11/20/22 23:26:00)UA Ketones: NEG (11/20/22 23:26:00)UA Leuk Est: NEG (11/20/22 23:26:00)UA Mucus: cFew (11/20/22 23:26:00)UA Nitrite: NEG (11/20/22 23:26:00)UA pH: 5 (11/20/22 23:26:00)UA Protein: 30 Abnormal (11/20/22 23:26:00)UA RBC: UA Spec Grav: 1.018 (11/20/22 23:26:00)UA Sq Epi: iOCC (11/20/22 23:26:00)UA Turbidity: 01 Abnormal (11/20/22 23:26:00)UA Urobilinogen: 4 mg/dL High (11/20/22 23:26:00)UA WBC: 1 /HPF (11/20/22 23:26:00)WBC: 5 K/CMM (11/21/22 05:08:00) Pertinent Imaging: Brain wo contrast CT 11/21/22 01:08:21IMPRESSION:No acute intracranial abnormality. Signed By: Kate Chavez MD Abdomen/Pelvis w contrast CT 11/21/22 02:01:33IMPRESSION:1. No acute traumatic injury to the abdomen or pelvis.2. Chronic superior endplate compression deformity of L1.3. Severe calcified and noncalcified atherosclerotic disease of the abdominal aorta and its major branches, described above. Aneurysmal dilatation of the infrarenal aorta measuring 3.3 cm.4. Small bilateral pleural effusions.5. Groundglass opacities of the right middle and lower lobes, partially visualized, may represent infection or sequela of aspiration.6. Subcutaneous edema, particularly along the flanks Signed By: Remi Hartman MD Chest CTA pulm emb 11/21/22 02:43:41IMPRESSION:1. No pulmonary embolism identified. No CT evidence for right heart strain, although significant reflux of contrast into the IVC is suggestive of right heart dysfunction.2. Endotracheal tube terminates within the trachea.3. Small bilateral pleural effusions with adjacent compressive atelectasis.4. Interlobular septal thickening patchy groundglass and consolidative opacities in the right lung more prominent in the right middle and lower lobes .5. Multivessel coronary artery calcifications status post stenting.6. Chronic appearing compression deformity of the L1 superior endplate resulting in greater than 50% central body height loss7. Please refer to concurrent CT abdomen pelvis for findings within the abdomen. [place] SECTION: Chest Signed By: Palma Cline MD Trauma Spine Cervical wo contrast CT 11/21/22 01:10:47IMPRESSION:1. No acute abnormality of the cervical spine.2. Small bilateral pleural effusions. Signed By: Remi Hartman MD Chest 1view DX 11/20/22 23:25:41IMPRESSION:1. Bilateral pulmonary opacities may represent multifocal infection, aspiration or pulmonary edema centrally. Signed By: Remi Hartman MD Assessment/Plan: 77 yo woman with above noted history seen in setting of acute on chronic respiratory failure. She is assessed on mechanical ventilation, on sedation vacation. Arouses to voice, follows commands with all extremities. Daughter at bedside. Acute and chronic respiratory failure with hypoxia (J96.21) Acute encephalopathy (G93.40) Acute hypercapnic respiratory failure (J96.02) AF (atrial fibrillation) (I48.91) COPD exacerbation (J44.1) Elevated troponin (R77.8) On mechanically assisted ventilation (Z99.11) Pneumonia (J18.9) Pulmonary aspiration of gastric contents (T17.918A) Sepsis with acute hypoxic respiratory failure (A41.9) Neuro/Psych:Acute Toxic Metabolic Encephalopathy- CT head neg,- Encephalopathy likely related to hypercapnia- Neuro-checks- Delirium precautions - Wean Fentanyl gtt for RASS 0/-1- DC propofol- Versed 2 mg IVP x 1. CV:NSTEMIAfib ? Acute Decompensated HFH/o CAD- LVEF moderately reduced on bedside US- HS Troponin 2259, follow trend q4h - BNP 523- MAP goal > 65, Not on any vasopressors- Echo pending- Metoprolol 25 mg q8h per - Cardiology on consult, will need ischemic work-up once stable- Heparin gtt for ACS protocol Resp:Acute on Chronic Respiratory Failure requiring Mechanical VentilationAspiration PneumoniaH/o COPD with Home O2- Vent VC 20/400/10 FIO2 60%- VBG 7.35/42 --> decrease RR to 15, PEEP 8- Continue budesonide nebs q12h- DC DuoNebs, start Atrovent nebs q6h- Solu-medrol 40 mg IVP q8h- Titrate oxygen therapy to SpO2>90%- CXR, ABG in AM GI/Nutrition:- NPO for now. RD consult for nutrition eval, may need enteral nutrition if not extubated tomorrow- PPI - Start bowel regimen Renal/Electrolytes:AKIHyperkalemia H/o YELENA- Cr 1.54, baseline unknown --> likely prerenal- Net neg 375 ml/UOP 970 ml- Avoid nephrotoxic drugs, Trend Cr, check urine lytes- K 5.6 --> shift with insulin 5 units, D50 and Lokelma- BMP q2h x 3- Renally dose all medications- Check renal US w/ Doppler Endo:- Hgb A1c 5.6, TSH 0.194, free T4 0.89- FS goals 140-180 Heme/Onc:Anemia, Chronic- Hgb 10 No evidence of active bleeding- Transfuse for Hgb- Continue heparin gtt ACS protocol ID:PneumoniaRhinovirus- Afebrile, no leukocytosis- Resp viral panel pos rhinovirus- Blood, urine and sputum cx in process.- Add Flagyl - Continue vancomycin and cefepime 07/18- Check MRSA PCR Msk/Skin/Deconditioned:- PT/OT evaluation and treat- Nursing care with frequent turning to prevent DTIs and Sacral decubs Prophylaxis DVT PPx: heparin gttGI ppx: PPI Disposition Patient is critically ill due to acute on chronic respiratory failure and hyperkalemia requiring mechanical ventilation and IV shift, frequent diagnostic testing. She is at high risk for acute decompensation, including cardiac arrest. Family updated at bedside. Will need ischemic cardiac work-up. [place]ira [place] NPElectronically Signed: 11/21/22 17:37[facility] HospitalShana sexton MDElectronically Signed: 11/22/22 17:21 Notes Date/Time Note Provider Source 2022-11-26 EXAM: XR CHEST [address] [facility] 13:08:20-00:00 DATE: 11/26/2022 13:08 Center Age: 77 years y/o Female INDICATION: - CHF, continued dyspnea COMPARISON: November 22, 2022. TECHNIQUE: AP chest. IMPRESSION: Lines/tubes: Interval extubation. Enteric tube h as been removed. Heart and mediastinum: The c ardiomediastinal silhouette is stable. Aortic vascular wall calcifications are noted. Lungs: Bilateral lower zone opacities may represent atelectasis, aspiration, and/or infection. Pleura: Small bilateral pleu ral effusions are present. No pneumothorax is identified on this portable radiograph. Musculoskeletal: The regional skeleton is unchan ged. 2022-11-22 EXAM: US RENAL WITH DOPPLER [facility] 18:04:55-00:00 DATE: 11/22/2022 18:04 Center INDICATION: - ELIAS, h/o renal artery stenosis ADDITIONAL INFORMATION: None. COMPARISON: CT abdomen and pelvis 11/21/2022. TECHNIQUE: Multiplanar yaw chuy, color Doppler, and spectral Doppler ultrasound of the kidneys and urinary bladder. Exam quality limited by body habitus and overlying bowel gas. FINDINGS: Right kidney: Size: 10.3 x 5.0 x 6.5 cm Cortical thickness: Normal. Hydronephrosis: None. Echogenicity: Normal. Calculi: None. Cysts/Masses: None. Left kidney: Difficult to evaluate because of navjot dy habitus and overlying gas. Size: 5.6 x 2.4 x 4.1 cm Cortical thickness: Normal. Hydronephrosis: None. Echogenicity: Normal. Calculi: None. Cysts/Masses: There is an an echoic 1.9 x 2.0 x 1.9 cm well-circumscribed lesion representing a simple cyst. Bladder: Normal. Abdominal aorta: Visible portions are normal. Right Main Renal Artery: Patent. No elevated loki ocities. Right RA:Aorta Ratio: Normal. Right Intrarenal/Arcuate Art eries: Antegrade monophasic low resistive flow with rapid upstroke. Right Superior RI: 0.6 Right Middle RI: 0.6 Right Inferior RI: 0.8 Right Main Renal Veins: Patent. Free fluid: None. Other: None. IMPRESSION: 1. Limited evaluation given overlying bowel gas. 2. No renal Doppler/flow abnormalities involving the right kidney. 3. Atrophic left kidney with small interpolar re nal cyst. 2022-11-22 EXAM: XR CHEST 1 VIEW [facility] 01:20:00-00:00 DATE: 11/22/2022 1:20 Center INDICATION: - Resp failure, ETT COMPARISON: Chest radiograph November 20, 2022 TECHNIQUE: AP chest. FINDINGS: Lines, tubes and hardware: E ndotracheal tube tip projects approximately 0.5 cm above the roger. A gastric suction tube passes below the diaphragm. Lungs and pleura: Central in terstitial and bibasilar airspace opacities, intervally improved compared to prior. The left costophrenic sulcus is obscured by overlying cardiomediastinal silhouette. No pne umothorax is identified on this semiupright radi ograph. Heart and mediastinum: The h eart size is unchanged. Vascular calcifications are present at the aorta. Bones and soft tissues: No acute abnormality. IMPRESSION: 1. Low-lying endotracheal tu be tip projecting 0.5 cm above the roger. Recommend retraction. 2. Intervally improved inter stitial and airspace opacities which may represent any combination of pulmonary edema infection or aspiration. 3. Increased left retrocardi ac opacity may be due to atelectasis, aspiration or pneumonia. 2022-11-21 EXAM: XR ABDOMEN 1 VIEW [facility] 16:25:00-00:00 DATE: 11/21/2022 16:25 Center INDICATION: - Feeding tube placement ADDITIONAL INFORMATION: None. COMPARISON: 11/21/2022 TECHNIQUE: Limited AP view o f the abdomen for tube placement assessment. Number of images: 2 FINDINGS: Transesophageal feeding tube tip: None Transesophageal suction tube sidehole: Side port and tip within the gastric body and gastric antrum respectively. Other tubes and lines: None. Bilateral common iliac stent s and aortobiiliac vascular calcifications is seen again. Small colonic stool burden seen. No bowel dilati on. IMPRESSION: 1. Appropriately positioned transesophageal yg tata suction tube. 2022-11-21 EXAM: XR ABDOMEN 1 VIEW [facility] 09:55:00-00:00 DATE: 11/21/2022 9:55 Center INDICATION: - OG placement COMPARISON: None. TECHNIQUE: Limited AP view o f the abdomen for tube placement assessment. Number of images: 3 FINDINGS: Transesophageal feeding tube: None. Transesophageal suction tube sidehole in the distal esophagus in the final third image and needs to be further advanced. Other tubes and lines: Bilateral iliac stent gra fts noted. No other changes. IMPRESSION: Tube positions as above. 2022-11-21 EXAM: CT CERVICAL SPINE WITHOUT CONTRAST [facility] 00:52:38-00:00 DATE: 11/21/2022 1:06 Center INDICATION: - found down ams COMPARISON: None TECHNIQUE: Volumetric CT of the cervical spine is acquired without contrast. Axial, coronal and sagittal images are provided. IV contrast: None. DLP: Refer to CT protocol form [place] SECTION: ER FINDINGS: The spine is imaged from the skull base to the l evel of T3. Chief Communications Officer: Noncontributory. Bones: No acute fracture or malalignment is identified. Moderate to severe multilevel degenerative changes of cervical spine are present, which results in multiple levels of severe neural foraminal stenosis. Soft tissues: No soft tissue abnormality is iden tified. No apical pneumothorax. Smal l lateral pleural effusions. Endotracheal tube terminates outside the dbyli-ng-jnoy. Tiny foci of air within the bilateral subclavian veins are present. IMPRESSION: 1. No acute abnormality of the cervical spine. 2. Small bilateral pleural effusions. 2022-11-21 EXAM: CT ABDOMEN AND PELVIS WITH CONTRAST [facility] 00:52:38-00:00 DATE: 11/21/2022 0:52 Center INDICATION: - found down, ecchymosis to abdomen. COMPARISON: Same-day radiographs TECHNIQUE: Volumetric CT of the abdomen and pelvis is acquired following intravenous administration of contrast. Axial, coronal and sagittal images are provided. DLP: Refer to CT protocol form IV contrast: Refer to MAR/technologist documenta tion IN SECTION: ER FINDINGS: Chief Communications Officer: Noncontributory. Lines and tubes: Carrera shaneka ter terminates in the decompressed urinary bladder. Lower Thorax: Small bilatera l pleural effusions, right slightly greater than left, with adjacent compressive atelectasis. In addition, multifocal groundglass opacities and nodular opacities in the right middle and lower lobes are visualized. No diaph ragmatic injury. Liver and biliary tree: Normal. No injury. No bi liary abnormality. Gallbladder: Normal. No CT evidence of gallstone s. No injury. Pancreas: Fatty infiltration of the pancreas. No injury. Spleen: Normal. No injury. Adrenals: Normal. No injury. Kidneys and ureters: Atrophi c, multicystic left kidney with perinephric stranding. The right kidney appears normal. No injury. Bladder: Decompressed with Carrera catheter. No in jury. Reproductive organs: No injury. Gastrointestinal tract: Normal. No bowel injury. Peritoneum and retroperitoneum: No fluid collect ions or free air. Lymph nodes: Normal. Vasculature: No vascular inj ury. Aneurysmal dilatation of the infrarenal aorta measuring 3.3 cm. Severe calcified and noncal cified atherosclerotic disease of the abdominal aorta and its major branches. 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 Review inferior to the renal arteries, there is eccentric noncalcified plaque measuring up to 1 cm in thickness. There is high-grade stenosis of the bilateral common iliac arteries Spine/ Bones: No acute abnor mality of the spine. Chronic appearing superior endplate compression deformity of L1 with superimposed Schmorl's node. No other bony injury. Soft tissues: Diffuse soft tissues edema, partic ularly along the flanks. IMPRESSION: 1. No acute traumatic injury to the abdomen or p jim. 2. Chronic superior endplate compression deformi ty of L1. 3. Severe calcified and nonc alcified atherosclerotic disease of the abdominal aorta and its major branches, described above. Aneurysmal dilatation of the infrarenal aorta measuring 3.3 cm. 4. Small bilateral pleural effusions. 5. Groundglass opacities of the right middle and lower lobes, partially visualized, may represent infection or sequela of aspiration. 6. Subcutaneous edema, particularly along the fl anks 2022-11-21 EXAM: CT BRAIN WITHOUT CONTRAST [facility] 00:52:38-00:00 DATE: 11/21/2022 Center INDICATION: - encephalopathy. COMPARISON: None. TECHNIQUE: Axial CT images o f the brain were obtained. Sagittal and coronal reformats. IV contrast: None DLP: Refer to CT protocol form FINDINGS: There is no edema, hemorrhag e, mass lesion or other acute intracranial abnormality. There is no chronic abnormality. Partially imaged endotrachea l tube. Associated secretions layer in the paranasal sinuses. IMPRESSION: No acute intracranial abnormality. 2022-11-21 EXAM: CTA CHEST WITH CONTRAST [facility] 00:52:38-00:00 DATE: 11/21/2022 0:52 Center INDICATION: - respiratory failure COMPARISON: No prior chest CT study TECHNIQUE: Volumetric CT of the chest is acquired during pulmonary arterial phase following intravenous administration of contrast. Axial, sagittal, coronal, and oblique MIP reconstructions are created at the acquisition workstation. IV Contrast: Please refer to technologist docume ntation. DLP: Please refer to technologist documentation. FINDINGS: Lines and tubes: Endotracheal tube extending to the mid thoracic trachea.. Lower neck: The thyroid glan d is heterogeneous with multiple hypodense subcentimeter nodules. The rest of the lower neck is unremarkable.. Axilla: No axillary lymphadenopathy.. Airway: Central tracheobronc hial system is patent. Mild secretion is seen in the trachea.. Lungs and pleura: Bilateral small to moderate pleural effusion with associated lower lobe compression atelectasis are seen. Interlobular septal thickening patchy groundglass and consolidative opacities in the right lung more promi nent in the right middle and lower lobes are noted. No pneumothorax. Mediastinum, ketan and intrat horacic lymph nodes: Mediastinal and bilateral hilar lymph nodes measuring up to 1.1 cm in the subcarinal region Heart, pericardium and great vessels: Pulmonary emboli: Opacificat ion of pulmonary arteries is optimal. No CT evidence of right heart strain. Pulmonary trunk: 2.8 cm. Ascending aorta: 2.9 cm. Ath erosclerotic calcific ossifications are seen in the thoracic aorta and branch vessels. Heart: Normal. RV/ LV <1. No right heart strain. Pericardium: No pericardial fluid. 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 Left vertebral artery is originating from aortic arch (a common variant) . Upper abdomen: Contrast refl ux to the inferior vena cava is noted. Please refer to concurrently obtained but separately dictated abdominopelvic CT study for intra-abdominal findings. Osseous structures: No acute abnormality. Chronic superior endplate L1 compression deformity causing more than 50% height loss. Degenerative changes are seen in the cervical spine. Soft tissues: Soft tissue edema particularly lisette ng the flanks is noted.. IMPRESSION: 1. No pulmonary embolism oscar ntified. No CT evidence for right heart strain, although significant reflux of contrast into the IVC is suggestive of right heart dysfunction. 2. Endotracheal tube terminates within the trach ea. 3. Small bilateral pleural effusions with adjace nt compressive atelectasis. 4. Interlobular septal thick ening patchy groundglass and consolidative opacities in the right lung more prominent in the right middle and lower lobes . 5. Multivessel coronary artery calcifications st atus post stenting. 6. Chronic appearing ky kevin deformity of the L1 superior endplate resulting in greater than 50% central body height loss 7. Please refer to [facility] CT abdomen pelvis for findings within the abdomen. [place] SECTION: Chest 2022-11-20 EXAM: XR CHEST 1 VIEW [facility] 23:02:00-00:00 DATE: 11/20/2022 23:02 Center INDICATION: - Dyspnea COMPARISON: None. TECHNIQUE: AP chest. FINDINGS: Lines, tubes and hardware: T he endotracheal tube tip is 3.7 cm above the roger Lungs and pleura: Pulmonary opacities are noted within the lungs, bilaterally. The costophrenic sulci are sharp without effusion. Heart and mediastinum: The h eart size is normal. The mediastinal contours are normal. Atherosclerotic calcifications of the thoracic aorta. Bones and soft tissues: No a cute abnormality. Multilevel degenerative changes of the thoracic spine. Additionally, there is degenerative change of the right acromioclavicular joint. IMPRESSION: 1. Bilateral pulmonary opaci ties may represent multifocal infection, aspiration or pulmonary edema centrally.
[2022-12-14 19:23] LABS: Absolute Lymphocytes (CBC) 0.8 K/uL (0.7-4.9); Hematocrit 26.6 % (36.0-45.0); Lymphocytes % 24.9 % (15.3-44.8); MCV 91.1 fL (80-100); MPV 8.6 fL (7.6-11.3); RBC Red Blood Cell Count 2.93 M/uL (3.86-4.86)
[2022-12-14 19:37] LABS: Protime INR 1.65
--- NOTE | 2022-12-14 19:57 | RAD REPORT ---
EXAM DESCRIPTION: [facility]14[facility]22 7:19 pm CLINICAL HISTORY: Chest pain;Dyspnea COMPARISON: Chest Single View dated 11/06/2022; Chest Single View dated 11/05/2022; Chest Pa And Lat ( 2 Views) dated 05/31/2020; Chest Pa And Lat (2 Views) dated 03/28/2018 TECHNIQUE: Portable AP view of the chest. FINDINGS: Diffuse interstitial prominence predominantly perihilar and at the bases, progressive sinc e the prior exam. There may be a small left pleural effusion with retrocardiac opacification as well. No pneumothorax or right effusion. The cardiomediastinal contours are unremarkable. IMPRESSION: Progressive perihilar and basal interstitial prominence and small left pleural effusion. Findings raise congestion for central edema or mild CHF.
[2022-12-14 20:01] LABS: Potassium 4.3 mEq/L (3.5-5.1); Troponin High Sensitivity 15.3 pg/mL (<58.9)
--- NOTE | 2022-12-14 20:33 | EDPHYS ---
Physician Documentation [facility] Name: Trang Ledesma Age: 77 yrs Sex: Female : 1945 Arrival Date: 12/14/2022 Time: 17:57 Bed 2 Private MD: ED Physician Isaias Owen HPI: 12/14 18:22 This 77 yrs old Female presents to ER via EMS with complaints of sob, Chest Pain. rn 18:22 The patient has shortness of breath at rest. rn 18:22 Onset: The symptoms/episode began/occurred today. Duration: The symptoms are rn continuous. The patient's shortness of breath is aggravated by nothing, is alleviated by application of supplemental oxygen, nitroglycerin. Associated signs and symptoms: Pertinent positives: chest pain, non-productive cough, Pertinent negatives: fever, hemoptysis. Severity of symptoms: At their worst the symptoms were moderate in the emergency department the symptoms have improved. The patient has experienced similar episodes in the past. Reports flown to [facility] 2 weeks ago, intubated, treated for COPD exacerbation and pneumonia with resp failure, was feeling better, then began to feel sob and chest pain today, states equal in intensity between the 2. No fever. No trauma. No hx of dvt/PE. Given 3 SL nitro and chest pain resolved but sob still present. . Historical: - Allergies: 18:08 PENICILLINS; ss 18:08 Sulfa (Sulfonamide Antibiotics); ss - Home Meds: 18:32 Eliquis 5 mg oral tablet 2 times per day [Active]; carvedilol 25 mg oral tablet every ld1 12 hours [Active]; atorvastatin 80 mg oral tablet 1 tab daily [Active]; lisinopril 10 mg Oral tablet daily [Active]; Trelegy Ellipta 100-62.5-25 mcg inhalation Blister, With Inhalation Device once [Active]; - PMHx: 18:08 Atrial fibrillation; Chronic obstructive lung disease; ss 18:32 Hypertensive disorder; Hypercholesterolemia; ld1 - PSHx: 18:08 Cardiac stents; ss - Immunization history:: Client reports receiving the 2nd dose of the Covid vaccine. - Social history:: Smoking status: Patient/guardian denies using tobacco, Stopped _ months ago 1. - Family history:: not pertinent. - Hospitalizations: : No recent hospitalization is reported. ROS: 18:22 Constitutional: Negative for fever, chills, and weight loss, Cardiovascular: + chest rn pain Respiratory: + sob and cough Abdomen/GI: Negative for abdominal pain, nausea, vomiting, diarrhea, and constipation, Back: Negative for injury and pain, MS/Extremity: Negative for injury and deformity, Skin: Negative for injury, rash, and discoloration, Neuro: Negative for headache, numbness, tingling, and seizure. Exam: 18:22 Constitutional: This is a well developed, well nourished patient who is awake, alert, rn and in no acute distress. ENT: dry mm, no stridor Cardiovascular: Regular rate, irregular rhythm. No pulse deficits. Respiratory: + mild tachypnea, no wheezing, no retractions, speaking full sentences Abdomen/GI: Soft, non-tender Skin: Warm, dry MS/ Extremity: Pulses equal, no cyanosis. Neurovascular intact. Full, normal range of motion. Equal circumference. Neuro: Awake and alert, GCS 15 19:50 ECG was reviewed by the Attending Physician. rn Vital Signs: 18:05 BP 157 / 73; Pulse 97; Resp 20; Pulse Ox 98% on 2 lpm NC; Pain 0/10; ss 18:40 BP 160 / 124; Pulse 82; Resp 18; Temp 98.1(O); Pulse Ox 97% on R/A; Weight 77.56 kg; ld1 Height 5 ft. 3 in. ; Pain 0/10; 19:00 BP 150 / 65; Pulse 89; Resp 18; Pulse Ox 97% on 2 lpm NC; cm10 19:30 BP 149 / 75; Pulse 92; Resp 18; Pulse Ox 95% on 2 lpm NC; cm10 22:22 BP 129 / 66; Pulse 102; Resp 20 S; Pulse Ox 100% on 2 lpm NC; as6 23:00 BP 167 / 73; Pulse 75; Resp 16; Pulse Ox 100% on 3 lpm NC; cm10 18:40 Body Mass Index 30.29 (77.56 kg, 160.02 cm) ld1 18:05 Pain Scale: Adult ss 18:40 Pain Scale: Adult ld1 MDM: 18:10 Patient medically screened. rn 20:30 Differential diagnosis: Anemia Anxiety Reaction CHF exacerbation, Myocardial Infarction rn pneumonia, Pneumothorax pulmonary edema, Pulmonary Embolism. Data reviewed: vital signs, nurses notes, lab test result(s), EKG, radiologic studies, plain films, and as a result, I will admit patient. Consideration of Admission/Observation Patient was admitted/placed on observation. Escalation of care including admission/observation considered. External Records Reviewed: Inpatient record: INpatient record from [facility] admission reviewed, was intubated, ICU level care for resp failure and pneumonia with sepsis and NSTEMI. . Care significantly affected by the following chronic conditions: Hypertension, Congestive Heart Failure, Chronic Obstructive Pulmonary Disease. Counseling: I had a detailed discussion with the patient and/or guardian regarding: the historical points, exam findings, and any diagnostic results supporting the discharge/admit diagnosis, lab results, radiology results, the need for further work-up and treatment in the hospital. Response to treatment: the patient's symptoms have mildly improved after treatment, and as a result, I will admit patient. 20:32 ED course: Pt reports not taking her lasix for the last 2 days.. rn 12/14 18:10 Order name: Basic Metabolic Panel; Complete Time: 20:10 12/14 18:10 Order name: CBC with Diff; Complete Time: 19:38 rn 12/14 18:10 Order name: NT PRO-BNP; Complete Time: 20:10 rn 12/14 18:10 Order name: PT-INR; Complete Time: 19:38 rn 12/14 18:10 Order name: Troponin HS; Complete Time: 20:10 rn 12/14 18:17 Order name: Blood Culture Adult (2) rn 12/14 18:17 Order name: Ptt, Activated; Complete Time: 20:10 rn 12/14 18:10 Order name: XRAY Chest (1 view); Complete Time: 20:10 rn 12/14 18:17 Order name: CT Chest For PE Angio; Complete Time: 21:06 rn 12/14 18:10 Order name: EKG; Complete Time: 18:11 rn 12/14 18:10 Order name: Cardiac monitoring; Complete Time: 18:31 rn 12/14 18:10 Order name: EKG - Nurse/Tech; Complete Time: 18:42 rn 12/14 18:10 Order name: IV Saline Lock; Complete Time: 18:42 rn 12/14 18:10 Order name: Labs collected and sent; Complete Time: 19:10 rn 12/14 18:10 Order name: O2 Per Protocol; Complete Time: 18:27 rn 12/14 18:10 Order name: O2 Sat Monitoring; Complete Time: 18:27 rn EC:50 Rate is 81 beats/min. Rhythm is irregularly irregular. QRS Mary Alice is Normal. AK interval rn is normal. QRS interval is normal. QT interval is normal. No Q waves. T waves are Normal. No ST changes noted. Clinical impression: Atrial Fibrillation. Interpreted by me. Reviewed by me. Administered Medications: 20:56 Drug: Furosemide IVP 60 mg Route: IVP; Site: right antecubital; cm10 23:01 Follow up: Response: No adverse reaction cm10 Disposition Summary: 12/14/22 20:32 Hospitalization Ordered Hospitalization Status: Observation rn Provider: Markos Owen rn Location: Telemetry/MedSurg (observation) rn Condition: Stable rn Problem: an acute exacerbation rn Symptoms: have improved rn Bed/Room Type: Standard rn Room Assignment: 220(12/14/22 22:23) cg Diagnosis - Unspecified combined systolic (congestive) and diastolic (congestive) heart failure rn - Acute pulmonary edema rn - Pleural effusion, not elsewhere classified rn Forms: - Medication Reconciliation Form rn - SBAR form rn Signatures: Dispatcher [employer] EDIsaias Azevedo MD MD rn Blanchard, Shelby RN RN Remi Gtz, ISAAC SANCHEZP-Cla1 Mary Vicente RN RN cg Darlyn Hartman RN RN ldShima Hernandez, RN RN cm10 Corrections: (The following items were deleted from the chart) 22:23 20:32 rn cg
--- NOTE | 2022-12-14 20:33 | ER ---
Nurse's Notes [facility] Name: Trang Ledesma Age: 77 yrs Sex: Female : 1945 Arrival Date: 12/14/2022 Time: 17:57 Bed 2 Private MD: Diagnosis: Unspecified combined systolic (congestive) and diastolic (congestive) heart failure;Acute pulmonary edema;Pleural effusion, not elsewhere classified Presentation: 12/14 18:05 Chief complaint: EMS states: CP and shortness of breath that began today. EMS reports ss that pain was initially 10/10 and after Nitro SL x 3, Nitro paste and 324 ASA, Chest pain is now 0/10. HX of COPD, cardiac stents and AFIB. Coronavirus screen: Client denies travel out of the [place] in the last 14 days. Ebola Screen: Patient denies exposure to infectious person. Patient denies travel to an Ebola-affected area in the 21 days before illness onset. Initial Sepsis Screen: Does the patient meet any 2 criteria? No. Patient's initial sepsis screen is negative. Does the patient have a suspected source of infection? No. Patient's initial sepsis screen is negative. Risk Assessment: Do you want to hurt yourself or someone else? Patient reports no desire to harm self or others. Onset of symptoms was December 14, 2022. 18:05 Method Of Arrival: EMS: [facility] 18:05 Acuity: ZUNILDA 2 ss 18:41 Care prior to arrival: Medication(s) given: Nitroglycerin, 0.4 mg SL x 3, Nitropaste to ld1 left upper chest. Triage Assessment: 18:32 General: Appears in no apparent distress. comfortable, Behavior is calm, cooperative, ld1 appropriate for age. Pain: Complains of pain in chest Pain does not radiate. Pain currently is 0 out of 10 on a pain scale. at worst was 10 out of 10 on a pain scale. Quality of pain is described as throbbing. EENT: No signs and/or symptoms were reported regarding the EENT system. Neuro: Level of Consciousness is awake, alert, obeys commands, Oriented to person, place, time, situation. Cardiovascular: Capillary refill < 3 seconds Patient's skin is warm and dry. Rhythm is atrial fibrillation. Respiratory: Airway is patent Respiratory effort is even, unlabored. GI: Abdomen is flat, non-distended. : No signs and/or symptoms were reported regarding the genitourinary system. Derm: No signs and/or symptoms reported regarding the dermatologic system. Musculoskeletal: No signs and/or symptoms reported regarding the musculoskeletal system. Historical: - Allergies: 18:08 PENICILLINS; ss 18:08 Sulfa (Sulfonamide Antibiotics); ss - Home Meds: 18:32 Eliquis 5 mg oral tablet 2 times per day [Active]; carvedilol 25 mg oral tablet every ld1 12 hours [Active]; atorvastatin 80 mg oral tablet 1 tab daily [Active]; lisinopril 10 mg Oral tablet daily [Active]; Trelegy Ellipta 100-62.5-25 mcg inhalation Blister, With Inhalation Device once [Active]; - PMHx: 18:08 Atrial fibrillation; Chronic obstructive lung disease; ss 18:32 Hypertensive disorder; Hypercholesterolemia; ld1 - PSHx: 18:08 Cardiac stents; ss - Immunization history:: Client reports receiving the 2nd dose of the Covid vaccine. - Social history:: Smoking status: Patient/guardian denies using tobacco, Stopped _ months ago 1. - Family history:: not pertinent. - Hospitalizations: : No recent hospitalization is reported. Screenin:40 [facility] ED Fall Risk Assessment (Adult) History of falling in the last 3 months, ld1 including since admission No falls in past 3 months (0 pts). Abuse screen: Denies threats or abuse. Denies injuries from another. Nutritional screening: No deficits noted. Tuberculosis screening: No symptoms or risk factors identified. Assessment: 18:40 Reassessment: See triage assessment. ld1 19:16 General: Appears in no apparent distress. comfortable, Behavior is calm, cooperative. cm10 Neuro: No deficits noted. Level of Consciousness is awake, alert, Oriented to person, place, time, situation. Cardiovascular: No deficits noted. Capillary refill < 3 seconds Rhythm is atrial fibrillation. Respiratory: No deficits noted. Airway is patent Respiratory effort is even, unlabored, Respiratory pattern is regular, symmetrical. 19:17 Derm: No deficits noted. Skin is intact, Skin is pink, warm \T\ dry. cm10 21:08 Reassessment: Pt provided with food. cm10 23:00 Pain: Pain began suddenly. cm10 Vital Signs: 18:05 BP 157 / 73; Pulse 97; Resp 20; Pulse Ox 98% on 2 lpm NC; Pain 0/10; ss 18:40 BP 160 / 124; Pulse 82; Resp 18; Temp 98.1(O); Pulse Ox 97% on R/A; Weight 77.56 kg; ld1 Height 5 ft. 3 in. ; Pain 0/10; 19:00 BP 150 / 65; Pulse 89; Resp 18; Pulse Ox 97% on 2 lpm NC; cm10 19:30 BP 149 / 75; Pulse 92; Resp 18; Pulse Ox 95% on 2 lpm NC; cm10 22:22 BP 129 / 66; Pulse 102; Resp 20 S; Pulse Ox 100% on 2 lpm NC; as6 23:00 BP 167 / 73; Pulse 75; Resp 16; Pulse Ox 100% on 3 lpm NC; cm10 18:40 Body Mass Index 30.29 (77.56 kg, 160.02 cm) ld1 18:05 Pain Scale: Adult ss 18:40 Pain Scale: Adult ld1 ED Course: 18:05 Patient arrived in ED. ds4 18:08 Triage completed. ss 18:08 Arm band placed on right wrist. ss 18:10 Isaias Owen MD is Attending Physician. rn 18:40 Patient has correct armband on for positive identification. Placed in gown. Bed in low ld1 position. Call light in reach. Side rails up X2. bus driver/monitor on. Pulse ox on. NIBP on. Door closed. Noise minimized. Warm blanket given. 18:40 No provider procedures requiring assistance completed. Maintain EMS IV. Dressing ld1 intact. Good blood return noted. Site clean \T\ dry. Gauge \T\ site: 22G LH. Patient maintains SpO2 saturation greater than 95% on room air. 19:07 Initial lab(s) drawn, by me, sent to lab. First set of blood cultures drawn by me. cm10 19:10 Ptt, Activated Sent. cm10 19:10 Blood Culture Adult (2) Sent. cm10 19:10 Basic Metabolic Panel Sent. cm10 19:10 CBC with Diff Sent. cm10 19:10 NT PRO-BNP Sent. cm10 19:10 PT-INR Sent. cm10 19:10 Troponin HS Sent. cm10 19:16 Shima Marroquin, RN is Primary Nurse. cm10 19:21 XRAY Chest (1 view) In Process Unspecified. EDMS 19:30 Second set of blood cultures drawn by me. cm10 19:[address] via stretcher. cm10 19:[address] Patient moved back from [address]. cm10 20:32 CT Chest For PE Angio In Process Unspecified. EDMS 20:32 Markos Owen MD is Hospitalizing Provider. rn 23:00 Patient admitted, IV remains in place. cm10 Administered Medications: 20:56 Drug: Furosemide IVP 60 mg Route: IVP; Site: right antecubital; cm10 23:01 Follow up: Response: No adverse reaction cm10 Medication: 18:40 VIS not applicable for this client. ld1 Outcome: 20:32 Decision to Hospitalize by Provider. rn 22:59 Admitted to Med/surg accompanied by tech, via stretcher, room 220, Report called to cmJed Antony RN 22:59 Condition: good 22:59 Instructed on the need for admit. 23:01 Patient left the ED. 10 Signatures: Dispatcher [employer] EDNJ Isaias Owen MD MD rn Blanchard, Shelby, RN RN Anibal Betancourt ds4 Darlyn Hartman RN RN ld1 Woo Segura RN RN as6 Shima Marroquin, RN RN cm10
[2022-12-14] MEDS ORDERED: FUROSEMIDE 100 MG/10 ML VIAL IV ONE (20:34)
--- NOTE | 2022-12-14 21:04 | P.HP ---
Certification for Inpatient Patient admitted to: Observation With expected LOS: <2 Midnights Patient will require the following post-hospital care: None Practitioner: I am a practitioner with admitting privileges, knowledge of patient current condition, hospital course, and medical plan of care. Services: Services provided to patient in accordance with Admission requirements found in Title 42 Section 412.3 of the Code of Federal Regulations Patient History Date of Service: 12/14/22 Reason for admission: CHF exacerbation, chest pain History of Present Illness: 77-year-old female with history of atrial fibrillation on chronic anticoagulation therapy, chronic diastolic congestive heart failure, COPD recently placed on home oxygen, hypertension, hyperlipidemia who was recently hospitalized at [facility] for respiratory failure, sepsis, pneumonia, NSTEMI was brought to the emergency department with chief complaint of shortness of breath, chest pain. She reports that her shortness of breath and chest pain began last night when she laid down to go to bed is worse when lying down, she was discharged on Lasix 40 mg p.o. daily from [facility] and had not been taking the past couple of days because she felt like she may be dehydrated. During her stay at [facility] she was intubated and subsequently placed on home oxygen she was treated with IV steroids, IV antibiotics for pneumonia, COPD as well as diuretics for suspected CHF exacerbation, she had an echocardiogram performed shortly after leaving the hospital results were not currently available for review but she was told it was "okay" and to follow-up with her property management assistant outpatient. She is work-up in the ER today her labs are significant for hemoglobin 8.9 hematocrit 26.6 BNP 9259 high-sensitivity opponent 15.3 chest x-ray showed progressive perihilar and basal interstitial prominence and small left pleural effusion. Findings raise concern for central edema or mild CHF. ED provider wishes to admit under observation for suspected CHF exacerbation, chest pain. Allergies Sulfa (Sulfonamide Antibiotics) Adverse Reaction (Verified 03/28/18 15:27) Anaphylaxis Home Medications: Amlodipine Besylate/Benazepril [Lotrel 10-20 mg Capsule] 5 - 20 mg PO DAILY 03/28/18 Aspirin [Aspir-Low] 81 mg PO DAILY 03/28/18 Carvedilol [Coreg] 12.5 mg PO DAILY 03/28/18 Clopidogrel Bisulfate [Plavix] 75 mg PO DAILY 10/18/18 Apixaban [Eliquis] 5 mg PO BID 30 Days #60 11/10/22 Apixaban [Eliquis] 5 mg PO BID 30 Days #60 tablet 11/10/22 Fluticasone/Umeclidin/Vilanter [Trelegy Ellipta 100-62.5-25] 1 each IH DAILY 30 Days #30 aero 11/10/22 predniSONE [Prednisone*] 10 mg PO BID #20 tab 11/10/22 - Past Medical/Surgical History -: Hypertension -: Coronary artery disease -: COPD on home O2 -: Chronic diastolic congestive heart failure -: Atrial fibrillation on chronic anticoagulation -: Hyperlipidemia -: Left endarterectomy Psychosocial/ Personal History: Patient lives at home, alone. - Family History Family History: Reviewed- Non-Contributory - Social History Smoking Status: Former smoker Counseled patient to stop smoking for: less than 10 minutes Alcohol use: No CD- Drugs: No Caffeine use: Yes Place of Residence: Home Review of Systems 10-point ROS is otherwise unremarkable Respiratory: Cough, Shortness of Breath Cardiovascular: Chest Pain, Orthopnea, Edema Physical Examination - Physical Exam General: Alert, In no apparent distress, Oriented x3 HEENT: Atraumatic, PERRLA, Mucous membr. moist/pink, EOMI, Sclerae nonicteric Neck: Supple, 2+ carotid pulse no bruit, No LAD, Without JVD or thyroid abnormality Respiratory: Clear to auscultation bilaterally, Diminished Cardiovascular: Edema, Irregular heart rate/rhythm (A-fib, rate controlled) Capillary refill: <2 Seconds Gastrointestinal: Normal bowel sounds, No tenderness Musculoskeletal: No tenderness Integumentary: No rashes Neurological: Normal speech, Normal strength at 5/5 x4 extr, Normal tone, Normal affect - Studies Laboratory Data (last 24 hrs) 12/14/22 19:07: APTT 32.2 12/14/22 19:07: PT 18.1 H, INR 1.65 12/14/22 19:07: WBC 3.40 L, Hgb 8.9 L, Hct 26.6 L, Plt Count 144 L 12/14/22 19:07: Sodium 140, Potassium 4.3, BUN 23 H, Creatinine 0.90, Glucose 121 H Assessment and Plan - Plan Assessment: Acute on chronic diastolic congestive heart failure Chest pain rule out ACS Atrial fibrillation on chronic anticoagulation therapy COPD on chronic home O2 Hypertension Hyperlipidemia Plan: Acute on chronic diastolic congestive heart failure Patient has been noncompliant with Lasix the past few days as she felt dehydrated. Continue IV diuresis, will need to continue taking Lasix outpatient. other medications including carvedilol, lisinopril, aspirin, Eliquis continued. Chest pain rule out ACS Trend troponin, monitor on telemetry. Cardiology consult in place. During her recent hospitalization at [facility] she had an echocardiogram but stress test was deferred for outpatient evaluation. Last heart catheterization reportedly in 2004, she reports she had a staged cath with initially 1 stent and subsequently 2 stents no further heart catheterization performed since then. Atrial fibrillation on chronic anticoagulation therapy Rate controlled, continue carvedilol, Eliquis. COPD on chronic home O2 Continue supplemental oxygen, as needed nebulizer treatments. Hypertension Hyperlipidemia Home medications continued. DVT PPX: Continue Eliquis Code status: Full code Discharge Plan: Home Plan to discharge in: 24 Hours - Advance Directives Does patient have a Living Will: No Does patient have a Durable POA for Healthcare: Yes - Code Status/Comfort Care Code Status Assessed: Yes (Full code) Critical Care: No Time Spent Managing Pts Care (In Minutes): 55
--- NOTE | 2022-12-14 21:04 | RAD REPORT ---
EXAM DESCRIPTION: CT - Chest For Pe Angio - 12/14/2022 8:30 pm CLINICAL HISTORY: Chest pain;Dyspnea COMPARISON: Chest For Pe Angio dated 11/08/2022; Chest Single View dated 12/14/2022; Chest Single View dated 11/06/2022; Chest Single View dated 11/05/2022; Chest Pa And Lat (2 Views) dated 05/31/2020; Lumb ar Spine Wo Con dated 04/15/2019 TECHNIQUE: Thin axial CT images of the chest were obtained following administration of 80 mL Isovue 370 IV contrast. Multiplanar reconstructions, and maximum intensity projection reconstructions were g enerated and reviewed. Exam utilizes a protocol for optimal evaluation of pulmonary arterial tree. All CT scans are performed using dose optimization technique as appropriate and may include automated exposure control or mA/KV adjustment according to patient size. FINDINGS: Pulmonary arteries are normal. No emboli or other suspicious finding. No acute or signific ant aorta findings. No mass or infiltrate in the lung parenchyma. Central interlobular septal thickening. Small layering pleural effusions, with mild dependent subsegmental atelectasis. Mild pericardial effusion . No pneum othorax. No abnormal mediastinal or hilar masses or lymphadenopathy seen. No chest wall mass or abnormal axill iary lymphadenopathy. Schmorl's node formation versus central wedge compression deformity along superior endplate of L1, i ncompletely imaged. IMPRESSION: No evidence of acute central pulmonary emboli. Findings suggestive of mild pulmonary edema including central interlobular septal thickening and laye ring small pleural effusions. Mild pericardial effusion is also noted. Schmorl's node formation versus central wedge compression deformity along superior endplate of L1, in completely imaged, and ultimately of indeterminate age.
[2022-12-14] MEDS ORDERED: MORPHINE 2 MG/ML SYR IV PRN (22:52)
[2022-12-14] MEDS ORDERED: ALBUTEROL 2.5 MG/3 ML NEB SOL NEB PRN (22:52)
[2022-12-14] MEDS ORDERED: ONDANSETRON 4 MG/2 ML VIAL IV PRN (22:52)
[2022-12-14 23:53] VITALS: BMI 29.9
[2022-12-15] MEDS: APIXABAN 5 MG TABLET PO SCH ×3 (00:19→20:21)
[2022-12-15] MEDS: ATORVASTATIN 80 MG TAB PO SCH ×2 (00:19→20:20)
[2022-12-15] MEDS ORDERED: MELATONIN 5 MG TABLET PO PRN (00:44)
[2022-12-15] MEDS: carvediloL 12.5 MG TAB PO SCH ×2 (06:16→18:00)
--- NOTE | 2022-12-15 07:09 | P.PN ---
Date of Service: 12/15/22 Subjective: feeling better today breathing seems easier today, +wheeze denies chest pains she feels like her symptoms started after stopping her home lasix, thought it was prescribed PRN ROS: 10 point ROS as noted above, otherwise negative Physical Exam: GEN: Alert, oriented, NAD HEENT: Normal conjunctiva, sclera anicteric CV: Irregularly Irregular rate and rhythm, no edema Pulm: Nonlabored respirations on 3L NC, diminished at bases b/l ABD: Soft, nontender, nondistended Neuro: Normal speech, normal affect vitals reviewed Problem List: Acute on chronic diastolic congestive heart failure Chest pain Atrial fibrillation on chronic anticoagulation therapy CAD s/p stents Iron deficiency anemia COPD on chronic home O2 Hypertension Hyperlipidemia Acute on chronic diastolic congestive heart failure Chest pain Patient has been noncompliant with Lasix the past few days as she felt dehydrated and thought lasix was PRN During her recent hospitalization at [facility] she had an echocardiogram but stress test was deferred for outpatient evaluation. Last heart catheterization reportedly in 2004, she reports she had a staged cath with initially 1 stent and subsequently 2 stents no further heart cat heterization performed since then. CTA chest (12/14): Progressive perihilar and basal interstitial prominence and small left pleural effusion. Findings raise congestion for central edema or mild CHF Continue IV lasix BID continue other medications including carvedilol, lisinopril, aspirin, Eliquis Cardiology consulted troponins negative x3, monitor on telemetry remains with dyspnea, at rest, continue diuresis Atrial fibrillation on chronic anticoagulation therapy Rate controlled, continue carvedilol, Eliquis, aspirin Iron deficiency anemia iron(12/15) - 40 (12/15), tsat:117 Monitor H&H. transfuse if hgb < 7 COPD on chronic home O2 Continue supplemental oxygen, as needed nebulizer treatments. Hypertension Hyperlipidemia continue home medications VTE: Home eliquis Code: Full Dispo: Home ~1 day
[2022-12-15 07:44] LABS: Absolute Lymphocytes (CBC) 0.7 K/uL (0.7-4.9); Hematocrit 26.5 % (36.0-45.0); Lymphocytes % 21.1 % (15.3-44.8); MCV 90.6 fL (80-100); MPV 8.7 fL (7.6-11.3); RBC Red Blood Cell Count 2.93 M/uL (3.86-4.86)
[2022-12-15 08:11] LABS: Potassium 4.2 mEq/L (3.5-5.1); Thyroid Stimulating Hormone 0.888 uIU/mL (0.358-3.740); Troponin High Sensitivity 14.5 pg/mL (<58.9)
[2022-12-15 08:20] LABS: Ferritin 149.8 ng/mL (8-388)
[2022-12-15] MEDS: lisinopriL 20 MG TAB PO SCH (08:34)
[2022-12-15] MEDS: ASPIRIN EC 81 MG TAB PO SCH (08:34)
[2022-12-15] MEDS: FUROSEMIDE 40 MG/4 ML VIAL IV SCH ×2 (09:33→16:37)
[2022-12-15] MEDS ORDERED: ALBUTEROL 2.5 MG/3 ML NEB SOL NEB PRN (14:00)
--- NOTE | 2022-12-15 18:00 | CON ---
Date of Consultation: 12/15/2022 Reason For Consultation: Chest pain and shortness of breath. History Of Present Illness: A 77-year-old female with history of atrial fibrillation, COPD, congesti ve heart failure, coronary artery disease, hypertension presented to the emergency room complaining o f shortness of breath and chest pain. Pain is left sided. No radiation. Not related to exertion an d the patient is having some scattered wheezing, some upper respiratory tract symptoms with dry cough as well and no nausea, vomiting, or diarrhea. Past Medical History: As outlined above in the HPI. Medications: Refer to reconciliation sheet for detailed list. Allergies: SULFA. Family History: No premature coronary artery disease or cancer. Social History: She is an ex-smoker. Does not drink or use any drugs. Review of Systems: All systems were reviewed and they were negative except as mentioned in the HPI. Physical Examination: Vital Signs: Reviewed. Head and Neck: Pupils are equal, reactive to light. Intact eye movements. No JVD. No cervical lym phadenopathy. Neck is supple. Thyroid is not enlarged. Lungs: Decreased breathing sounds with scattered wheezing. No accessory muscle use or muscle retrac tion. Heart: Irregularly irregular. No extra sounds. Abdomen: Soft, nontender. Bowel sounds positive. No organomegaly. No masses or hernia. No rigidi ty or rebound. Extremities: No clubbing, cyanosis. Intact pulses. No edema. Neurologic: Alert, awake, oriented x3. No acute focal deficits appreciated. Investigations: BUN 22, creatinine 0.83, hemoglobin is 8.8, and she had a CT scan of the chest with IV contrast that showed no pulmonary embolism. Assessment And Recommendations: 1.Chest pain. Cardiac enzymes are negative. She will need ischemia evaluation. Stress test as an outpatient is recommended. 2.Chronic congestive heart failure. On Lasix. Carefully monitor BUN, creatinine, and electrolytes. 3.Atrial fibrillation, controlled. Continue current management including carvedilol and Eliquis. SR/MODL Voice ID: [id number] Report ID: [id number]
[2022-12-16 03:06] LABS: Absolute Lymphocytes (CBC) 1.1 K/uL (0.7-4.9); Hematocrit 26.2 % (36.0-45.0); Lymphocytes % 27.9 % (15.3-44.8); MCV 90.4 fL (80-100); RBC Red Blood Cell Count 2.89 M/uL (3.86-4.86)
[2022-12-16 03:21] LABS: Magnesium 1.8 mg/dL (1.6-2.4); Potassium 4.2 mEq/L (3.5-5.1)
[2022-12-16] MEDS: carvediloL 12.5 MG TAB PO SCH (05:30)
--- NOTE | 2022-12-16 07:08 | P.PN ---
Date of Service: 12/16/22 Subjective: ROS: 10 point ROS as noted above, otherwise negative Physical Exam: GEN: Alert, oriented, NAD HEENT: Normal conjunctiva, sclera anicteric CV: Irregularly Irregular rate and rhythm, no edema Pulm: Nonlabored respirations on 3L NC, diminished at bases b/l ABD: Soft, nontender, nondistended Neuro: Normal speech, normal affect vitals reviewed Problem List: Acute on chronic diastolic congestive heart failure Chest pain Atrial fibrillation on chronic anticoagulation therapy CAD s/p stents Iron deficiency anemia COPD on chronic home O2 Hypertension Hyperlipidemia Acute on chronic diastolic congestive heart failure Chest pain Patient has been noncompliant with Lasix the past few days as she felt dehydrated and thought lasix was PRN During her recent hospitalization at [facility] she had an echocardiogram but stress test was deferred for outpatient evaluation. Last heart catheterization reportedly in 2004, she reports she had a staged cath with initially 1 stent and subsequently 2 stents no further heart catheterization performed since then. CTA chest (12/14): Progressive perihilar and basal interstitial prominence and small left pleural effusion. Findings raise congestion for central edema or mild CHF Continue IV lasix BID continue other medications including carvedilol, lisinopril, aspirin, Eliquis Cardiology consulted troponins negative x3, monitor on telemetry remains with dyspnea, at rest, continue diuresis Atrial fibrillation on chronic anticoagulation therapy Rate controlled, continue carvedilol, Eliquis, aspirin Iron deficiency anemia iron(12/15) - 40 (12/15), tsat:117 Monitor H&H. transfuse if hgb < 7 COPD on chronic home O2 Continue supplemental oxygen, as needed nebulizer treatments. Hypertension Hyperlipidemia continue home medications VTE: Home eliquis Code: Full Dispo: Home ~1 day
--- NOTE | 2022-12-16 09:05 | P.DS ---
Admission Date: 12/14/22 Discharge Date: 12/16/22 Disposition: ROUTINE DISCHARGE Discharge Condition: GOOD Reason for Admission: CHF exacerbation, chest pain Consultations: Cardiology - Dr. Bragg Brief History of Present Illness: 77 yo F, PMH: atrial fibrillation on chronic anticoagulation therapy, chronic diastolic congestive heart failure, COPD recently placed on home oxygen, hypertension, hyperlipidemia who was recently hospitalized at [facility] for respiratory failure, sepsis, pneumonia, NSTEMI Patient presented to the emergency department with chief complaint of shortness of breath, chest pain. She reports that her shortness of breath and chest pain began last night when she laid down to go to bed is worse when lying down, she was discharged on Lasix 40 mg p.o. daily from [facility] and had not been taking the past couple of days because she felt like she may be dehydrated. During her stay at [facility] she was intubated and subsequently placed on home oxygen she was treated with IV steroids, IV antibiotics for pneumonia, COPD as well as diuretics for suspected CHF exacerbation, she had an echocardiogram performed shortly after leaving the hospital results were not currently available for review but she was told it was "okay" and to follow-up with her guide changer outpatient.She is work-up in the ER today her labs are significant for hemoglobin 8.9 hematocrit 26.6 BNP 9259 high-sensitivity opponent 15.3 chest x-ray showed progressive perihilar and basal interstitial prominence and small left pleural effusion. Hospital Course: Problem List: Acute on chronic diastolic congestive heart failure Chest pain Atrial fibrillation on chronic anticoagulation therapy CAD s/p stents Iron deficiency anemia COPD on chronic home O2 Hypertension Hyperlipidemia Patient presented with chest pain and shortness of breath. She was found to have been noncompliant with Lasix the past few days as she felt dehydrated and thought lasix was PRN. Cardiology was consulted. Troponins were negative. BNP was elevated (9259). No further inpatient workup was warranted however Dr. Bragg recommended patient to follow up in office for stress test. Patient was restarted on her home lasix along with her other home medications and had significant improvement of her symptoms. Discussed the importance of not missing any doses of her home medications including lasix. During her hospitalization, she was found to have iron deficiency anemia. Recommend patient to follow up with her PCP for further management. New / change in prescriptions: Lasix continue other home medications as previously prescribed Follow up: PCP 3-5 days Cardiology within 1-2 weeks for outpatient stress test Physical Exam: GEN: Alert, oriented, NAD HEENT: Normal conjunctiva, sclera anicteric CV: Irregularly Irregular rate and rhythm (rate controlled), no edema Pulm: Nonlabored respirations on 3L NC, diminished at bases b/l ABD: Soft, nontender, nondistended Neuro: Normal speech, normal affect Vital Signs/Physical Exam: Temp Pulse Resp BP Pulse Ox 98 F 89 16 135/68 94 12/16/22 07:55 12/16/22 07:55 12/16/22 07:55 12/16/22 07:55 12/16/22 07:55 Laboratory Data at Discharge: WBC 3.80 thou/uL (4.3-10.9) L 12/16/22 02:12 Hgb 8.9 g/dL (12.0-15.0) L 12/16/22 02:12 Hct 26.2 % (36.0-45.0) L 12/16/22 02:12 Plt Count 153 thou/uL (152-406) 12/16/22 02:12 PT 18.1 SECONDS (9.5-12.5) H 12/14/22 19:07 INR 1.65 12/14/22 19:07 APTT 32.2 SECONDS (21.7-34.4) 12/14/22 19:07 Sodium 139 mEq/L (136-145) 12/16/22 02:12 Potassium 4.2 mEq/L (3.5-5.1) 12/16/22 02:12 BUN 34 mg/dL (7-18) H 12/16/22 02:12 Creatinine 1.06 mg/dL (0.55-1.02) H 12/16/22 02:12 Glucose 103 mg/dL (74-106) 12/16/22 02:12 Magnesium 1.8 mg/dL (1.6-2.4) 12/16/22 02:12 Home Medications: Clopidogrel Bisulfate [Plavix] 75 mg PO BEDTIME 03/28/18 Apixaban [Eliquis] 5 mg PO BID 30 Days #60 11/10/22 Atorvastatin Calcium [Lipitor] 80 mg PO BEDTIME 12/14/22 Budesonide/Glycopyr/Formoterol [Breztri Aerosphere Inhaler] 2 puff IH BID 12/14/22 carvediloL [Coreg*] 25 mg PO BID 12/14/22 lisinopriL [Lisinopril] 20 mg PO DAILY 12/14/22 Furosemide [Lasix] 40 mg PO DAILY 30 Days #30 tab 12/16/22 New Medications: Furosemide [Lasix] 40 mg PO DAILY 30 Days #30 tab Physician Discharge Instructions: Patient presented with chest pain and shortness of breath. She was found to have been noncompliant with Lasix the past few days as she felt dehydrated and thought lasix was PRN. Cardiology was consulted. Troponins were negative. BNP was elevated (9259). No further inpatient workup was warranted however Dr. Bragg recommended patient to follow up in office for stress test. Patient was restarted on her home lasix along with her other home medications and had significant improvement of her symptoms. Discussed the importance of not missing any doses of her home medications including lasix. During her hospitalization, she was found to have iron deficiency anemia. Recommend patient to follow up with her PCP for further management. New / change in prescriptions: Lasix continue other home medications as previously prescribed Follow up: PCP 3-5 days Cardiology within 1-2 weeks for outpatient stress test Time spent managing pt's care (in minutes): 45
[2022-12-16] MEDS: ASPIRIN EC 81 MG TAB PO SCH (09:23)
[2022-12-16] MEDS: FUROSEMIDE 40 MG/4 ML VIAL IV SCH (09:23)
[2022-12-16] MEDS: lisinopriL 20 MG TAB PO SCH (09:23)
[2022-12-16] MEDS: APIXABAN 5 MG TABLET PO SCH (09:24)
[2022-12-16 09:32] VITALS: O2SAT 94
[2022-12-16 11:42] VITALS: BP 146/66; TEMP 98.2
--- NOTE | 2022-12-16 16:21 | EKG ---
Test Date: 2022-12-14 Test Time: 18:39:50 Nursing Home Director: JOHNY MEASUREMENT RESULTS: Intervals: Rate: 81 DE: QRSD: 82 QT: 346 QTc: 401 [place]: P: DE: QRS: 68 T: 0 INTERPRETIVE STATEMENTS: Atrial fibrillation Nonspecific ST and T wave abnormality Abnormal ECG Compared to ECG 11/06/2022 22:30:30 ST (T wave) deviation now present Myocardial infarct finding no longer present Electronically Signed On 12-16-22 16:18:22 CDT by Jose Maria Bragg
== END 2022-12-16 12:25 | disposition home or self-care (01) ==
LOC: ER 17:57 → ERHOLD 20:54 → 2ND 22:41
PROVIDERS: ADMIT Hospitalist; ATTEND Hospitalist
DX: I50.33 Acute on chronic diastolic (congestive) heart failure (principal); I48.11 Longstanding persistent atrial fibrillation; J44.9 Chronic obstructive pulmonary disease, unspecified; I10 Essential (primary) hypertension; D50.9 Iron deficiency anemia, unspecified; E78.5 Hyperlipidemia, unspecified; J90 Pleural effusion, not elsewhere classified; Z87.891 Personal history of nicotine dependence; Z88.2 Allergy status to sulfonamides; Z99.81 Dependence on supplemental oxygen; Z79.01 Long term (current) use of anticoagulants; Z91.148 Patient's other noncompliance with medication regimen for other reason; Z88.0 Allergy status to penicillin
CPT/HCPCS: 93005; 87040 ×2; 85025 ×3; 80048 ×3; 36415 ×2; 83735 ×2; 85610; 85730; 84443; 84484 ×3; 84439; 82728; 83540; 83880; 84466; 71275; 71045; 96374; 99285; Q9967; J1940 ×3; G0378